=== PATIENT | female | born 1945 | race Caucasian/White ===

== ENCOUNTER 2018-05-05 10:58 | Inpatient (IN) ==
[2018-05-05] MEDS ORDERED: Orphenadrine 100 MG TABLET.ER PO ONE (11:26)
[2018-05-05] MEDS ORDERED: *HR* HYDROmorphone (PF) 1 MG/ML SYRINGE IVP ONE (11:27)
--- NOTE | 2018-05-05 11:42 | Emergency Department Note ---
Disposition Clinical Impression: Left hip pain Disposition: Admitted As Inpatient Condition: Fair Referrals: Sharifa Hutton DO [Partnered Physician] - Forms: ED Satisfaction Letter Time of Disposition: 14:38 General Adult HPI - General Chief complaint: ED Extremity Problem,Nontraumatic Stated complaint: L hip pain Time Seen by Provider: 05/05/18 11:09 Source: patient Mode of arrival: ambulatory Limitations: no limitations Nursing Notes Reviewed: Yes Vital Signs Reviewed: Yes - History of Present Illness HPI Narrative: 72-year-old female history of chronic back pain is followed by pain management presents to the emergency with left hip pain. Patient felt approximate 3 days ago has been seen every day since the fall here in the emergency department. Patient has been given Dilaudid, Toradol, Flexeril in the emergency department she is able to go home and then is unable to control her pain. Patient does have Percocet at home and is followed by pain management with Dr. Alexandra. Patient is benign able to control her pain so she keeps on coming back to the emergency department for the exact same pain. She did have CTs and x-rays done of her left hip as well as her pelvis which is showed no acute fractures or any injuries. They said does show chronic arthritis of the left hip. Patient has had a right hip replacement done in the past. Patient is describing her pain is in the left hip describing it as 10 out of 10 sharp stabbing pain nonradiating. She says that all the medications that she took including the Flexeril was not helping with the pain at all. Otherwise patient has no complaint at this time. There is no new recent falls or new recent trauma to the area. Patient is having no other complaints including headache, blurry vision, neck pain, back pain, fever, chills, nausea, vomiting, chest pain, shortness of breath, abdominal pain, changes in bowel movements, pain with urination, pain or ting ling going down the arms or legs or generalized weakness. Pain Scale: 10 - Related Data Home Medications Medication Instructions Recorded Confirmed Aspirin [Adult Low Dose Aspirin EC] 81 mg PO BID 06/26/15 02/28/16 Carvedilol [Coreg] 25 mg PO BID 06/26/15 02/28/16 Esomeprazole Magnesium [Nexium] 40 mg PO BID 06/26/15 02/28/16 Isosorbide MONOnitrate (24 HR) 30 mg PO DAILY 06/26/15 02/28/16 [Imdur] LORazepam [Ativan] 1 mg PO TID 06/26/15 02/28/16 Rosuvastatin [Crestor] 40 mg PO HS 06/26/15 02/28/16 Buprenorphine [Butrans] 1 each TD Q7D 02/28/16 02/28/16 Calcitriol [Rocaltrol] 0.25 mcg PO BID 02/28/16 02/28/16 Cyanocobalamin (Vitamin B-12) 1,000 mcg PO MOWEFR 02/28/16 02/28/16 [Vitamin B12] Cyclobenzaprine [Flexeril] 10 mg PO TID PRN 02/28/16 02/28/16 Eletriptan HBr [Relpax] 20 mg PO AD PRN 02/28/16 02/28/16 FLUoxetine HCl [Prozac] 20 mg PO BID 02/28/16 02/28/16 Furosemide [Lasix] 20 mg PO BID 02/28/16 02/28/16 HYDROcodone/Acet 10/325 mg [[place] 1 tab PO Q6HR PRN 02/28/16 02/28/16 10-325 mg] Hydralazine HCl 50 mg PO BID 02/28/16 02/28/16 Levothyroxine [Synthroid] 50 mcg PO 0630 02/28/16 02/28/16 Mirtazapine [Remeron] 30 mg PO HS 02/28/16 02/28/16 Ondansetron HCl [Zofran] 4 mg PO Q6H PRN 02/28/16 02/28/16 Pnv No.122/Iron/Folic Acid 1 each PO DAILY 02/28/16 02/28/16 [ Multi Tablet] Potassium Chloride [Klor-Con] 20 meq PO QPM 02/28/16 02/28/16 Potassium Chloride [Klor-Con] 40 meq PO QAM 02/28/16 02/28/16 Pregabalin [Lyrica] 75 mg PO BID 02/28/16 02/28/16 Trazodone HCl 200 mg PO HS 02/28/16 02/28/16 Verapamil ER (24 HR) [Calan SR] 180 mg PO DAILY 02/28/16 02/28/16 Previous Rx's Medication Instructions Recorded Docusate [Colace] 100 mg PO BID #60 capsule 02/28/16 Oxycodone HCl/Acetaminophen 1 each PO Q4HR PRN #25 tablet 02/28/16 [Percocet 5-325 mg Tablet] Phenazopyridine HCl [Pyridium] 200 mg PO TIDAC #12 tab 02/28/16 Orphenadrine [Norflex] 100 mg PO BID #14 tablet.er 11/04/16 Nitrofurantoin (BID) [Macrobid] 100 mg PO BID #10 capsule 11/20/16 Cyclobenzaprine [Flexeril] 10 mg PO TID #15 tablet 05/04/18 Allergies Allergy/AdvReac Type Severity Reaction Status Date / Time Amoxicillin AdvReac Vomiting Verified 05/05/18 11:05 meperidine [From Demerol] AdvReac Vomiting Verified 05/05/18 11:05 Sulfa (Sulfonamide AdvReac Vomiting Verified 05/05/18 11:05 Antibiotics) All systems ED: reviewed and negative except as stated. Review of Systems: As Per HPI Past Medical History - Past Medical History Attestation: Yes The following information was validated with the patient. 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 - Social History Smoking Status: Former smoker Smokeless Tobacco Status: No Alcohol use: Reports: none Drug use: Reports: none Physical Exam - General Limitations: no limitations General appearance: alert - Head Head exam: atraumatic, normocephalic, normal inspection - Eye Eye exam: Present: normal appearance, PERRL, EOMI - ENT ENT exam: normal exam, normal oropharynx, mucous membranes moist - Neck Neck exam: Present: normal inspection, full ROM, trachea midline - Chest Chest inspection: Present: normal inspection, symmetric chest wall rise - Respiratory Respiratory exam: Present: normal lung sounds bilaterally - Cardiovascular Cardiovascular exam: Present: regular rate, normal rhythm, normal heart sounds - Abdominal Exam Abdominal exam: Present: soft, Non-Tender. Absent: tenderness, distention, guarding, rebound, rigidity - Extremities Exam Extremities exam: Present: normal inspection, full ROM. Absent: tenderness, pedal edema - Expanded Lower Extremity Exam Hip/Pelvis exam: Present: normal inspection, tenderness (Tenderness while palpating the left hip.). Absent: swelling, laceration, ecchymosis, deformity, dislocation, erythema, external rotation, internal rotation, shortening Upper leg exam: Present: normal inspection, full ROM Knee exam: Present: normal inspection, full ROM Lower leg exam: Present: normal inspection, full ROM Ankle exam: Present: normal inspection, full ROM Foot/toe exam: Present: normal inspection, full ROM Neurovascular/Tendon exam: Absent: motor deficit, sensory deficit, tendon deficit - Back Exam Back exam: Present: normal inspection, full ROM. Absent: tenderness, CVA tend erness (R), CVA tenderness (L) - Neurological Exam Neurological exam: Present: alert, oriented X3 - Skin Skin exam: Present: warm, dry, intact, normal color Course Course Narrative: The pain specialist called here and recommended patient be admitted if we are unable to control patient's pain. We will get CTs of the thoracic and lumbar region distraught any other injuries. Due to patient coming back here for multiple visits. We will give patient Dilaudid and Zofran as well as Norflex to help with the pain. Patient will most likely be admitted for pain control as well as get a pain management consultation. Vital Signs Temperature 98.1 F 05/05/18 11:04 Pulse Rate 66 05/05/18 11:04 Respiratory Rate 16 05/05/18 11:04 Blood Pressure 161/89 05/05/18 11:04 O2 Sat by Pulse Oximetry 99 05/05/18 11:04 Temperature 98.1 F 05/05/18 11:24 Pulse Rate 63 05/05/18 14:21 Respiratory Rate 16 05/05/18 14:21 Blood Pressure 139/72 05/05/18 14:21 O2 Sat by Pulse Oximetry 99 05/05/18 14:21 Oxygen Delivery Oxygen Delivery Room Air Medical Decision Making - MDM Narrative Medical decision making narrative: Patient's pain was controlled with Dilaudid and Flexeril. CT of the lumbar and thoracic spine had no acute abnormalities. Due to patient needing constant pain control to admit to the hospitalist for further evaluation and pain control. Also recommend pain specialist consultation as well. I spoke with the hospitalist Dr. Walters who agreed to admit the patient to their service. Patient admitted in stable condition. Lumbar Spine CT 05/05/18 11:26 IMPRESSION: 1. No acute abnormality in the thoracic or lumbar spine. 2. Status post L2-L5 spinal fusion. Grade 1 anterolisthesis of L4 on L5. 3. Moderate L5-S1 degenerative disc disease. Mild degenerative disc disease throughout the thoracic spine and lumbar spine. D/ / 05/05/2018 13:04:08 Mee Ferrsi MD / kevin Interpreting Provider: Mee Ferris MD Thoracic Spine CT 05/05/18 11:26 IMPRESSION: 1. No acute abnormality in the thoracic or lumbar spine. 2. Status post L2-L5 spinal fusion. Grade 1 anterolisthesis of L4 on L5. 3. Moderate L5-S1 degenerative disc disease. Mild degenerative disc disease throughout the thoracic spine and lumbar spine. D/ / 05/05/2018 13:04:08 Mee Ferris MD / kevin Interpreting Provider: Mee Ferris MD - Lab Data Result diagrams: 05/05/18 13:16 05/05/18 13:16 Lab Results 05/05/18 05/05/18 Range/Units 13:16 13:16 WBC 4.0 L (4.3-11.1) K/mcL RBC 4.17 (3.82-4.97) M/mcL Hgb 11.9 (11.5-15.4) g/dL Hct 36.8 (35.3-44.9) % MCV 88.2 (83.0-100.0) fL MCH 28.5 (28.0-33.3) pg MCHC 32.3 (31.6-35.5) g/dL RDW 15.7 H (11.5-14.5) % Plt Count 206 (140-400) K/mcL MPV 10.9 (9.4-12.4) fL Immature Gran % 0.2 (0-4) % Seg Neutrophils % 70.2 % Lymphocytes % 16.7 % Monocytes % 10.7 % Eosinophils % 2.0 % Basophils % 0.2 % Neutrophils # 2.8 (1.6-8.9) K/mcL Lymphocytes # 0.7 (0.6-4.6) K/mcL Monocytes # 0.4 (0.0-1.3) K/mcL Eosinophils # 0.1 (0.0-0.6) K/mcL Basophils # 0.0 (0.0-0.2) K/mcL Sodium 140 (136-145) mEq/L Potassium 3.5 (3.5-5.1) mEq/L Chloride 106 (98-107) mEq/L Carbon Dioxide 27 (23-29) mEq/L BUN 25 H (8-23) mg/dL Creatinine 0.82 (0.60-1.20) mg/dL Est GFR ( Amer) > 60 (> 60) Est GFR (Non-Af Amer) > 60 (> 60) BUN/Creatinine Ratio 30 H (6-26) Glucose 103 (70-105) mg/dL Calculated Osmolality 295 (280-300) Calcium 8.7 (8.6-10.3) mg/dL Attestation Statement - Attestation Attestation: Patient was seen with resident physician. I reviewed the history, physical, assessment and plan, and agree with the findings. I also personally evaluated this patient and had [id number] time with this patient. 72-year-old female presents emergency Department for the third time in 4 days with a chief complaint of left lateral hip pain. Patient is a history of fall, and degenerative changes in the left hip. She also has a history of back injury with surgical correction. She is currently followed by pain management who advised her to come in today for pain control and possible admission. Patient states that she was seen yesterday and did not get until about 4 AM when the pain medicines wore off and then the pain came back. She says she is unable to ambulate because it hurt so bad. She denies new injuries. She has is a fairly extensive workup including CT scans and x-rays over the last week. She denies fevers or chills no chest pain or shortness of breath. Review of systems as above remainder negative. Physical exam vital signs are stable. ENT is unremarkable. Heart regular rhythm and rate. Lungs clear. Abdomen soft there is no tenderness no guarding no rigidity. Extremities tenderness with palpation of the left lateral hip along the greater trochanter. This reproduces the patient's symptoms. The back is nontender. Neurologically intact. Skin no rashes. Psych anxious. ED course patient has not had a thoracic and lumbar CT scan for approximately 6 months. I am with this fall I wanted make sure she did not have a new injury there that could be compressing a nerve resulting in pain to her hip. I we did contact the pain specialists who is on-call. They felt that with her frequent trips to the emergency department this point is probably better to admit her for pain control PT and OT. This is what we will likely do once her workup is complete. Hemodynamically she is stable in the emergency department. I agree with resident physician assessment and plan.
[2018-05-05] MEDS ORDERED: Ondansetron 4 MG/2 ML VIAL IVP ONE (11:43)
[2018-05-05 13:39] LABS: Basophils % 0.2 %; Eosinophils # 0.1 K/mcL (0.0-0.6); Hematocrit 36.8 % (35.3-44.9); Hemoglobin 11.9 g/dL (11.5-15.4); Immature Granulocytes % 0.2 % (0-4); Lymphocytes # 0.7 K/mcL (0.6-4.6); Lymphocytes % 16.7 %; Mean Corpuscular HGB Conc 32.3 g/dL (31.6-35.5); Mean Corpuscular Hemoglobin 28.5 pg (28.0-33.3); Mean Corpuscular Volume 88.2 fL (83.0-100.0); Mean Platelet Volume 10.9 fL (9.4-12.4); Monocytes # 0.4 K/mcL (0.0-1.3); Monocytes % 10.7 %; Neutrophils # 2.8 K/mcL (1.6-8.9); Platelet Count 206 K/mcL (140-400); Red Blood Count 4.17 M/mcL (3.82-4.97); Red Cell Distribution Width 15.7 % (11.5-14.5); Segmented Neutrophils % 70.2 %
[2018-05-05 13:57] LABS: BUN/Creatinine Ratio 30 (6-26); Blood Urea Nitrogen 25 mg/dL (8-23); Calcium 8.7 mg/dL (8.6-10.3); Carbon Dioxide 27 mEq/L (23-29); Chloride 106 mEq/L (98-107); Glucose 103 mg/dL (70-105); Osmolality,Calculated 295 (280-300); Potassium 3.5 mEq/L (3.5-5.1); Sodium 140 mEq/L (136-145); eGFR For Non-African Americans > 60 (> 60)
[2018-05-05] MEDS ORDERED: ELETRIPTAN HBR 20 MG PO PRN (16:57)
--- NOTE | 2018-05-05 17:12 | Internal Med History&Physical ---
Date of Encounter: 05/05/18 Time of Encounter: 16:12 Internal Medicine - H&P: HPI History of present illness: 72-year-old female history of chronic back pain arthritis, CAD, h/o DVT, renal disease presents to the emergency with left hip pain. Patient felt approximate 3 days ago has been seen every day since the fall here in the emergency department. Patient presented for third straight day for same pain, which is uncontrolled. CT and x-ray of left hip, pelvis, lumbar spine have been negative for acute fracture or acute injury. Pain described as 10 out of 10 on admission, and after getting pain medication in the ED, rated as 4/10. She denied LOC or hitting head. She denies fevers/chills, n/v, SOB, CP, changes in bowel/bladder, numbness/tingling of extremities. Past Med Surg Social Fam HX - Past Medical History Medical history: arthritis, coronary artery disease, DVT, hyperlipidemia, hypertension, migraine, renal disease, thyroid disease Psychiatric history: anxiety, bipolar, depression - Past Surgical History Surgical History: cholecystectomy, hysterectomy, other Additional surgical history: mid back sx, knee surgery, foot and shoulder surgery gastric bypass, R hip replacement - Social History Smoking Status: Former smoker Smokeless Tobacco Status: No Alcohol use: none Drug use: none - Family History Mother Hx Family Cardiac Disorders: Yes Internal Medicine - H&P: Meds Carvedilol [Coreg] 12.5 mg PO BID 06/26/15 [History] Isosorbide MONOnitrate (24 HR) [Imdur] 30 mg PO DAILY 06/26/15 [History] LORazepam [Ativan] 1 mg PO TID 06/26/15 [History] Rosuvastatin [Crestor] 40 mg PO HS 06/26/15 [History] Calcitriol [Rocaltrol] 0.25 mcg PO BID 02/28/16 [History] Cyanocobalamin (Vitamin B-12) [Vitamin B12] 1,000 mcg PO DAILY 02/28/16 [History] Cyclobenzaprine [Flexeril] 10 mg PO TID PRN 02/28/16 [History] Eletriptan HBr [Relpax] 20 mg PO AD PRN 02/28/16 [History] FLUoxetine HCl [Prozac] 20 mg PO BID 02/28/16 [History] Furosemide [Lasix] 40 mg PO QAM 02/28/16 [History] Hydralazine HCl 50 mg PO HS 02/28/16 [History] Levothyroxine [Synthroid] 50 mcg PO QAM 02/28/16 [History] Potassium Chloride [Klor-Con] 20 meq PO QPM 02/28/16 [History] Verapamil ER (24 HR) [Calan SR] 180 mg PO DAILY 02/28/16 [History] Aspirin [Lo-Dose Aspirin EC] 81 mg PO DAILY 05/05/18 [History] Furosemide [Lasix] 20 mg PO QPM 05/05/18 [History] Oxycodone HCl/Acetaminophen [Percocet 5-325 mg Tablet] 1 each PO Q4H PRN 05/05/18 [History] Pantoprazole Sodium [Protonix] 40 mg PO DAILY 05/05/18 [History] Pregabalin [Lyrica] 100 mg PO TID 05/05/18 [History] Allergy/AdvReac Type Severity Reaction Status Date / Time Amoxicillin AdvReac Vomiting Verified 05/05/18 11:05 meperidine [From Demerol] AdvReac Vomiting Verified 05/05/18 11:05 Sulfa (Sulfonamide AdvReac Vomiting Verified 05/05/18 11:05 Antibiotics) All Systems PM: A 10-system review of systems was performed and is negative for pertinent findings except as documented above in the HPI. - Constitutional Vitals: Temp Pulse Resp BP Pulse Ox 98.6 F 65 16 146/81 96 05/05/18 15:48 05/05/18 15:48 05/05/18 15:48 05/05/18 15:48 05/05/18 16:03 Exam: Gen: No acute distress, AAO x3 HEENT: NC/AT, PERRLA, EOMI, MMM, Neck full ROM. Chest: CTAB CVS: RRR Ext: right arm contusion near bicep. Positive for tenderness with palpating left hip on the lateral part and medial part as well. No edema, no erythema, no gross deformities. Limited left hip flexion and rotation due to pain. Strength of hips are normal. ROM and sensation preserved. Lower legs with normal sensation, normal strength, no edema, no cyanosis. Internal Med - H&P Results - Labs CBC & Chem 7: 05/05/18 13:16 05/05/18 13:16 Labs: Short CBC 05/05/18 Range/Units 13:16 WBC 4.0 L (4.3-11.1) K/mcL Hgb 11.9 (11.5-15.4) g/dL Hct 36.8 (35.3-44.9) % Plt Count 206 (140-400) K/mcL Neutrophils # 2.8 (1.6-8.9) K/mcL BMP 05/05/18 13:16 Sodium 140 Potassium 3.5 Chloride 106 Carbon Dioxide 27 BUN 25 H Creatinine 0.82 Glucose 103 Calcium 8.7 - Impressions ITS Impressions Lumbar Spine CT 05/05/18 11:26 IMPRESSION: 1. No acute abnormality in the thoracic or lumbar spine. 2. Status post L2-L5 spinal fusion. Grade 1 anterolisthesis of L4 on L5. 3. Moderate L5-S1 degenerative disc disease. Mild degenerative disc disease throughout the thoracic spine and lumbar spine. D/ / 05/05/2018 13:04:08 Mee Ferris MD / kevin Interpreting Provider: Mee Ferris MD Thoracic Spine CT 05/05/18 11:26 IMPRESSION: 1. No acute abnormality in the thoracic or lumbar spine. 2. Status post L2-L5 spinal fusion. Grade 1 anterolisthesis of L4 on L5. 3. Moderate L5-S1 degenerative disc disease. Mild degenerative disc disease throughout the thoracic spine and lumbar spine. D/ / 05/05/2018 13:04:08 Mee Ferris MD / kevin Interpreting Provider: Mee Ferris MD - Assessment and plan (1) Left hip pain Current Visit: Yes Status: Acute Assessment and plan: Occurred after a fall 3 days ago with gradually worsening of pain. Patient takes Percocet at home with no relief. CT of hip was negative for any acute process, including fractures. Consult Ortho in the AM. Consult Pain Management in the AM. PT/OT (2) Coronary artery disease Current Visit: Yes Status: Acute Qualifiers: Coronary Disease-Associated Artery/Lesion type: [place] artery [place] vs. transplanted heart: [place] heart Associated angina: without angina Qualified Code(s): I25.10 - Atherosclerotic heart disease of [place] coronary artery without angina pectoris (3) History of DVT (deep vein thrombosis) Current Visit: Yes Status: Acute Assessment and plan: Per EMR. No anticoagulations listed on home medications. Start SQ heparin for DVT prophylaxis. (4) Hyperlipidemia Current Visit: Yes Status: Acute Assessment and plan: Resume crestor Qualifiers: Hyperlipidemia type: unspecified Qualified Code(s): E78.5 - Hyperlipidemia, unspecified (5) Hypertension Current Visit: Yes Status: Acute Assessment and plan: Coreg, Hydralazine PO, Imdur, Verapamil ER Qualifiers: Hypertension type: essential hypertension Qualified Code(s): I10 - Essential (primary) hypertension (6) Osteoarthritis Current Visit: No Status: Chronic Qualifiers: Osteoarthritis location: hip Osteoarthritis type: primary Laterality: ri ght Qualified Code(s): M16.11 - Unilateral primary osteoarthritis, right hip - Time Spent With Patient Total time spent is greater than 50% in coordination of care (as documented) at patient's floor/unit and/or counseling patient:
[2018-05-05] MEDS ORDERED: OXYCODONE Oral CONC 10 MG/0.5 ML ORAL.SYG SL PRN (17:16)
[2018-05-05] MEDS ORDERED: Naloxone 0.4 MG/ML INJ IVP PRN ×2 (17:16)
[2018-05-05] MEDS ORDERED: MOM Conc 10 ML UD.LIQ PO PRN (17:16)
[2018-05-05] MEDS ORDERED: Acetaminophen 325 MG TABLET PO PRN (17:27)
[2018-05-05] MEDS ORDERED: Ketorolac 15 MG/ML VIAL IVP PRN (17:28)
[2018-05-05] MEDS: *HR* Heparin 5,000 UNIT/ML VIAL SQ SCH (17:49)
[2018-05-05] MEDS: Furosemide 20 MG TABLET PO SCH (17:49)
[2018-05-05] MEDS: OXYCODONE Oral CONC 10 MG/0.5 ML ORAL.SYG SL PRN ×2 (17:49→23:37)
[2018-05-05] MEDS: FLUoxetine 20 MG CAPSULE PO SCH (19:59)
[2018-05-05] MEDS: Pregabalin 50 MG CAPSULE PO SCH (19:59)
[2018-05-05] MEDS: *HR* LORazepam 1 MG TABLET PO SCH (19:59)
[2018-05-05] MEDS ORDERED: hydrALAZINE 25 MG TABLET PO SCH (21:00)
[2018-05-06] MEDS: *HR* Heparin 5,000 UNIT/ML VIAL SQ SCH ×2 (05:30→17:29)
[2018-05-06] MEDS: Isosorbide MONOnitrate (24 HR) 30 MG TAB.ER.24H PO SCH (08:11)
[2018-05-06] MEDS: Verapamil ER (24 HR) 180 MG TABLET.ER PO SCH (08:11)
[2018-05-06] MEDS: *HR* LORazepam 1 MG TABLET PO SCH ×3 (08:12→21:13)
[2018-05-06] MEDS: Cyanocobalamin (B-12) 1,000 MCG TABLET PO SCH (08:12)
[2018-05-06] MEDS: FLUoxetine 20 MG CAPSULE PO SCH ×2 (08:12→21:13)
[2018-05-06] MEDS: Pregabalin 50 MG CAPSULE PO SCH ×3 (08:13→21:13)
[2018-05-06] MEDS: Aspirin Enteric Coated 81 MG Tablet PO SCH (08:13)
[2018-05-06] MEDS: Furosemide 20 MG TABLET PO SCH ×2 (08:13→17:28)
--- NOTE | 2018-05-06 13:34 | Internal Med Progress Note ---
Hospitalist Progress Note - Encounter Date of Encounter: 05/06/18 Time of Encounter: 09:30 - Subjective Interval History: 72-year-old female history of chronic back pain arthritis, CAD, h/o DVT, renal disease presents to the emergency with left hip pain. Patient felt approximate 3 days ago since then she has severe left hip pain and has been seen in our ER every day . Patient presented for third straight day for same pain, which is uncontrolled. CT and x-ray of left hip, pelvis, lumbar spine have been negative for acute fracture or acute injury. Patient was admitted in the hospital. She still c/o severe Left hip pain, as well as low back pain radiating to her left thigh. Denied any CP / SOB. - Exam Vitals: Temp Pulse Resp BP Pulse Ox 98.5 F 69 16 99/61 93 05/06/18 10:57 05/06/18 10:57 05/06/18 10:57 05/06/18 10:57 05/06/18 10:57 Exam: Gen: Alert, awake, Oriented to time,place and person Chest: Diminished breath sounds B/L, No wheezing, No crackles, No rales Heart: S1S2+ RRR No murmurs Abd: Soft, NT, BS +, No organomegaly Neuro : Benign findings Skin: No rash. Ext: moderate to severe tenderness with palpating over lateral side of left hip. No bruise / No swelling / No erythema noticed. Limited left hip flexion and rotation due to pain. Strength of hips are normal. ROM and sensation preserved. Lower legs with normal sensation, normal strength, no edema, no cyanosis. - Assessment and Plan (1) Left hip pain Current Visit: Yes Status: Acute Assessment and Plan: Occurred after a fall 3 days ago with gradually worsening of pain CT of hip was negative for any acute process, including fractures Pt is unable to bare any weight high risk for falls still requiring more frequent high dose pain medication cont Flexaril need close monitoring Ortho consulted for further eval PT / OT eval May need short term PT / OT Patient does need to stay in the hospital more than 2 midnights due to her complex medical problems. So we will change her to full admission today. I did review my colleague Dr. Martin H & P including HPI, PMH, PSH, FH, SH, and ROS no changes noticed (2) Sciatic leg pain Current Visit: Yes Status: Acute Assessment and Plan: She does have s/p L2-L5 spinal fusion her low back pain also concerning for sciatic pain reviewed her CT of the lumbar spine which showed moderate L5-S1 DJD need to follow up with Dr. Cruz from [place] as an out pt (3) Osteoarthritis Current Visit: No Status: Chronic Assessment and Plan: noticed severe DJD continue symptomatic and supportive care (4) Coronary artery disease Current Visit: Yes Status: Acute Assessment and Plan: No active chest pain now Resumed home medications (5) History of DVT (deep vein thrombosis) Current Visit: Yes Status: Acute Assessment and Plan: on SQ heparin for DVT prophylaxis. (6) Hypertension Current Visit: Yes Status: Acute Assessment and Plan: Stable with current home medications Coreg, Hydralazine PO, Imdur, Verapamil ER (7) Hyperlipidemia Current Visit: Yes Status: Acute Assessment and Plan: Resume crestor - Time Spent with Patient Total time spent is greater than 50% in coordination of care (as documented) at patient's floor/unit and/or counseling patient: Internal Medicine: Result - Labs CBC & Chem 7: 05/05/18 13:16 05/05/18 13:16 Labs: Short CBC 05/05/18 Range/Units 13:16 WBC 4.0 L (4.3-11.1) K/mcL Hgb 11.9 (11.5-15.4) g/dL Hct 36.8 (35.3-44.9) % Plt Count 206 (140-400) K/mcL Neutrophils # 2.8 (1.6-8.9) K/mcL BMP 05/05/18 13:16 Sodium 140 Potassium 3.5 Chloride 106 Carbon Dioxide 27 BUN 25 H Creatinine 0.82 Glucose 103 Calcium 8.7 - Impressions Impressions Lumbar Spine CT 05/05/18 11:26 IMPRESSION: 1. No acute abnormality in the thoracic or lumbar spine. 2. Status post L2-L5 spinal fusion. Grade 1 anterolisthesis of L4 on L5. 3. Moderate L5-S1 degenerative disc disease. Mild degenerative disc disease throughout the thoracic spine and lumbar spine. D/ / 05/05/2018 13:04:08 Mee Ferris MD / kevin Interpreting Provider: Mee Ferris MD Thoracic Spine CT 05/05/18 11:26 IMPRESSION: 1. No acute abnormality in the thoracic or lumbar spine. 2. Status post L2-L5 spinal fusion. Grade 1 anterolisthesis of L4 on L5. 3. Moderate L5-S1 degenerative disc disease. Mild degenerative disc disease throughout the thoracic spine and lumbar spine. D/ / 05/05/2018 13:04:08 Mee Ferris MD / kevin [place] Provider: Mee Ferris MD Consult Discharge Plan - Plan Referrals: Sharifa Hutton DO [Primary Care Provider] - (3) Osteoarthritis Qualifiers: Osteoarthritis location: hip Osteoarthritis type: primary Laterality: right Qualified Code(s): M16.11 - Unilateral primary osteoarthritis, right hip (4) Coronary artery disease Qualifiers: Coronary Disease-Associated Artery/Lesion type: [place] artery [place] vs. transplanted heart: [place] heart Associated angina: without angina Qualified Code(s): I25.10 - Atherosclerotic heart disease of [place] coronary artery without angina pectoris (6) Hypertension Qualifiers: Hypertension type: essential hypertension Qualified Code(s): I10 - Essential (primary) hypertension (7) Hyperlipidemia Qualifiers: Hyperlipidemia type: unspecified Qualified Code(s): E78.5 - Hyperlipidemia, unspecified
[2018-05-06] MEDS: OXYCODONE Oral CONC 10 MG/0.5 ML ORAL.SYG SL PRN (14:17)
--- NOTE | 2018-05-06 19:09 | Orthopedic Consult Note ---
Date of Encounter: 05/06/18 Time of Encounter: 19:05 History of Present Illness Chief complaint: Left hip pain HPI: Ms. Subramanian is a 72 year old female with a history of chronic arthritis of the left hip as well as numerous other sites. The patient sustained a fall several days ago. She fell forward and injured her left hip amongst other things. She has been back and forth to the emergency room multiple times. X-rays did not reveal any evidence of a fracture. Further workup did not reveal any other acute fractures or injuries. The patient however has been unable to ambulate without pain. The patient has a significant history of having previously undergone a right total hip arthroplasty, bilateral total knee arthroplasties as well as an instrumented spine fusion. Patient has had chronic low back pain and buttock pain. She had been seen and treated by Dr. Alexandra of pain management with some relief obtained with epidural steroid injections, however, the patient has been unable to tolerate positioning for these injections. I reviewed the patient's completed history and physical exam as well as reviewed numerous imaging studies and the cord record. Pertinent orthopedic examination reveals a 72-year-old woman who is able to ambulate with use of an assistive device. She has well-healed incisions over both knees and over the right hip. Left hip examination is somewhat limited in motion. No evidence of severe pain with examination. I reviewed multiple imaging studies. X-ray of the left hip reveals advanced arthritic hip no evidence of acute fractures or dislocation. There is a stable, press-fit right total hip arthroplasty without obvious complicating features. X-rays of her left knee reveal a cemented 3 component total knee arthroplasty without complicating features. CT scan of the pelvis reveals the previously noted arthritic changes about the left hip but no evidence of acute fracture dislocation etc. A CT scan of the lumbar spine reveals the previously noted instrumented spine fusion from L2-L5. No complicating features noted in this vicinity. There is however, severe degenerative disc disease at the L5-S1 level. Impression: 1. Left hip contusion superimposed upon osteoarthritis left hip 2. Severe degenerative disc disease L5-S1 Recommendation: At this time there is no indication for acute intervention in regards to her left hip. Ultimately the patient will definitively be best served with a left total hip arthroplasty. In the meantime would have the patient continue to ambulate as tolerated. Can be discharged safely to home in the near future. Will follow-up as an outpatient after discharge to continue her care. Thank you very much for allowing me to seen care for Mrs. subramanian. Sincerely, Perez Arevalo,DO Past Med Surg Social Fam HX - Past Medical History Medical history: arthritis, coronary artery disease, DVT, hyperlipidemia, h ypertension, migraine, renal disease, thyroid disease Psychiatric history: anxiety, bipolar, depression - Past Surgical History Surgical History: cholecystectomy, hysterectomy, other Additional surgical history: mid back sx, knee surgery, foot and shoulder surgery gastric bypass, R hip replacement - Social History Smoking Status: Former smoker Smokeless Tobacco Status: No Alcohol use: none Drug use: none - Family History Mother Hx Family Cardiac Disorders: Yes Medications and Allergies Carvedilol [Coreg] 12.5 mg PO BID 06/26/15 [History] Isosorbide MONOnitrate (24 HR) [Imdur] 30 mg PO DAILY 06/26/15 [History] LORazepam [Ativan] 1 mg PO TID 06/26/15 [History] Rosuvastatin [Crestor] 40 mg PO HS 06/26/15 [History] Calcitriol [Rocaltrol] 0.25 mcg PO BID 02/28/16 [History] Cyanocobalamin (Vitamin B-12) [Vitamin B12] 1,000 mcg PO DAILY 02/28/16 [History] Cyclobenzaprine [Flexeril] 10 mg PO TID PRN 02/28/16 [History] Eletriptan HBr [Relpax] 20 mg PO AD PRN 02/28/16 [History] FLUoxetine HCl [Prozac] 20 mg PO BID 02/28/16 [History] Furosemide [Lasix] 40 mg PO QAM 02/28/16 [History] Hydralazine HCl 50 mg PO HS 02/28/16 [History] Levothyroxine [Synthroid] 50 mcg PO QAM 02/28/16 [History] Potassium Chloride [Klor-Con] 20 meq PO QPM 02/28/16 [History] Verapamil ER (24 HR) [Calan SR] 180 mg PO DAILY 02/28/16 [History] Aspirin [Lo-Dose Aspirin EC] 81 mg PO DAILY 05/05/18 [History] Furosemide [Lasix] 20 mg PO QPM 05/05/18 [History] Oxycodone HCl/Acetaminophen [Percocet 5-325 mg Tablet] 1 each PO Q4H PRN 05/05/18 [History] Pantoprazole Sodium [Protonix] 40 mg PO DAILY 05/05/18 [History] Pregabalin [Lyrica] 100 mg PO TID 05/05/18 [History] Allergy/AdvReac Type Severity Reaction Status Date / Time Amoxicillin AdvReac Vomiting Verified 05/05/18 11:05 meperidine [From Demerol] AdvReac Vomiting Verified 05/05/18 11:05 Sulfa (Sulfonamide AdvReac Vomiting Verified 05/05/18 11:05 Antibiotics) All Systems Reviewed: The remainder of the systems were reviewed and are negative Physical Exam - Constitutional Vitals: Temp Pulse Resp BP Pulse Ox 98.9 F 70 16 100/62 95 05/06/18 15:02 05/06/18 15:02 05/06/18 15:02 05/06/18 15:02 05/06/18 15:02 Results - Labs Result Diagrams: 05/05/18 13:16 05/05/18 13:16 Labs: Abnormal lab results WBC 4.0 K/mcL (4.3-11.1) L 05/05/18 13:16 RDW 15.7 % (11.5-14.5) H 05/05/18 13:16 BUN 25 mg/dL (8-23) H 05/05/18 13:16 BUN/Creatinine Ratio 30 (6-26) H 05/05/18 13:16 All other labs normal. - Diagnostic results Hip x-ray: image reviewed Hip CT: image reviewed Knee x-ray: image reviewed CT Scan - lumbar: image reviewed Consult Discharge Plan - Plan Referrals: Sharifa Hutton DO [Primary Care Provider] -
[2018-05-07] MEDS: OXYCODONE Oral CONC 10 MG/0.5 ML ORAL.SYG SL PRN ×2 (05:24→15:39)
--- NOTE | 2018-05-07 07:30 | Internal Med Progress Note ---
<Porter Brown P - Last Filed: 05/07/18 08:18> Hospitalist Progress Note - Encounter Date of Encounter: 05/07/18 Time of Encounter: 08:00 - Subjective Interval History: This 72 years old female admitted from ED for left hip pain and low back pain. She had history of fall on left side of hip 3 days back and having aggravated low back pain and left hip pain. She is chronic patient of low back pain, CAD, history of DVT, renal impairment, left hip osteoarthritis. Today is second day of admission. Her CT scan of left hip, lumbar spine and pelvis did not show any acute fracture or acute pathology except for degenerative changes in lumbar spine and left hip. Orthopedic consultation has been done: The recommendation is no acute intervention in regard to left hip pain and back pain. She could be candidate for left hip arthroplasty later on outpatient basis. Today during my bedside visit, she was lying comfortably on the bed, no any new complaints, the hip pain was 4-5/10 with pain medication, she told me she had t rouble walk around because of hip pain. Her today's vitals are: Temperature 98.3, pulse 72, blood pressure 134/79 - Exam Vitals: Temp Pulse Resp BP Pulse Ox 98.5 F 69 16 135/76 94 05/07/18 03:41 05/07/18 03:41 05/07/18 03:41 05/07/18 03:41 05/07/18 03:41 Exam: Gen: Alert, awake, Oriented to time,place and person Chest: Diminished breath sounds B/L, No wheezing, No crackles, No rales Heart: S1S2+ RRR No murmurs Abd: Soft, NT, BS +, No organomegaly Neuro : Benign findings Skin: No rash. Ext: moderate to severe tenderness with palpating over lateral side of left hip. No bruise / No swelling / No erythema noticed. Limited left hip flexion and rotation due to pain. Strength of hips are normal. ROM and sensation preserved. Lower legs with normal sensation, normal strength, no edema, no cy anosis. - Assessment and Plan (1) Left hip pain Current Visit: Yes Status: Acute Assessment and Plan: The patient had left hip pain after fall on left hip 3 days back and it is gradually getting worse. Today the level of pain is 4-5/10 with pain medication. We consulted orthopedic doctor, appreciate recommendation: No acute intervention needed for left hip, but could be a good candidate for total hip replacement on outpatient basis. CT of hip was negative for any acute process, including fractures She is on high-dose of pain medication and muscle relaxant. She has problem with ambulation , so we consulted PT and OT. We will monitor her hip pain. (2) Osteoarthritis Current Visit: No Status: Chronic Assessment and Plan: She is chronic patient patient of low back pain with degenerative disc disease. Ortho consultation has been done , we appreciate recommendation. CT thoracic and lumbar spine: No acute abnormality in the thoracic or lumbar spine., Status post L2-L5 spinal fusion. Grade 1 anterolisthesis of L4 on L5.,Moderate L5-S1 degenerative disc disease. Mild degenerative disc disease ,throughout the thoracic spine and lumbar spine. continue symptomatic and supportive care (3) Coronary artery disease Current Visit: Yes Status: Acute Assessment and Plan: She is a patient of coronary artery disease in the past. She does not have any chest pain, shortness of breath during this admission. We have resumed her home medication during her hospital stay. Her blood pressure is 134/79, pulse 72, saturation 97% (4) History of DVT (deep vein thrombosis) Current Visit: Yes Status: Acute (5) Hyperlipidemia Current Visit: Yes Status: Acute (6) Hypertension Current Visit: Yes Status: Acute (7) Sciatic leg pain Current Visit: Yes Status: Acute - Time Spent with Patient Total time spent is greater than 50% in coordination of care (as documented) at patient's floor/unit and/or counseling patient: Internal Medicine: Result - Labs CBC & Chem 7: 05/05/18 13:16 05/05/18 13:16 Consult Discharge Plan - Plan Referrals: Sharifa Hutton DO [Primary Care Provider] - <Ricardo Blanton - Last Filed: 05/07/18 15:12> Hospitalist Progress Note - Encounter Date of Encounter: 05/07/18 - Exam Vitals: Temp Pulse Resp BP Pulse Ox 98.5 F 79 18 98/63 95 05/07/18 12:12 05/07/18 12:12 05/07/18 12:12 05/07/18 12:12 05/07/18 12:12 - Assessment and Plan (1) Osteoarthritis Current Visit: No Status: Chronic (2) Left hip pain Current Visit: Yes Status: Acute (3) Coronary artery disease Current Visit: Yes Status: Acute (4) History of DVT (deep vein thrombosis) Current Visit: Yes Status: Acute (5) Hyperlipidemia Current Visit: Yes Status: Acute (6) Hypertension Current Visit: Yes Status: Acute (7) Sciatic leg pain Current Visit: Yes Status: Acute - Time Spent with Patient Total time spent is greater than 50% in coordination of care (as documented) at patient's floor/unit and/or counseling patient: Internal Medicine: Result - Labs CBC & Chem 7: 05/05/18 13:16 05/05/18 13:16 - Attending Attestation I examined this patient and my medical decision-making was reviewed with the Resident Physician Dr. Brown. I agree with the documented findings, disposition and treatment plan as described except to the extent set forth below. Ms. Garcia 72-year-old female history of chronic back pain arthritis, CAD, h/o DVT, renal disease presents to the emergency with left hip pain. Patient felt approximate 3 days ago since then she has severe left hip pain and has been seen in our ER every day . Patient presented for third straight day for same pain, which is uncontrolled. CT and x-ray of left hip, pelvis, lumbar spine have been negative for acute fracture or acute injury. Patient was admitted in the hospital. She still c/o severe Left hip pain, however little better today with current pain medications. Denied any CP / SOB. Gen: Alert, awake, Oriented to time,place and person Chest: Diminished breath sounds B/L, No wheezing, No crackles, No rales Heart: S1S2+ RRR No murmurs Abd: Soft, NT, BS +, No organomegaly Neuro : Benign findings Skin: No rash. Ext: moderate to severe tenderness left hip. No bruise / No swelling / No erythema noticed. Limited left hip flexion and rotation due to pain. a/p 1. Severe left Hip pain due to severe DJD May need Hip replacement Pt requested to consult Dr. Bowers So talked to Dr. Bowers who is going to evaluate the pt now mean while cont symptomatic and supportive care <Porter Brown P - Last Filed: 05/07/18 08:18> (2) Osteoarthritis Qualifiers: Osteoarthritis location: hip Osteoarthritis type: primary Laterality: right Qualified Code(s): M16.11 - Unilateral primary osteoarthritis, right hip (3) Coronary artery disease Qualifiers: Coronary Disease-Associated Artery/Lesion type: [place] artery [place] vs. transplanted heart: [place] heart Associated angina: without angina Qualified Code(s): I25.10 - Atherosclerotic heart disease of [place] coronary artery without angina pectoris (5) Hyperlipidemia Qualifiers: Hyperlipidemia type: unspecified Qualified Code(s): E78.5 - Hyperlipidemia, unspecified (6) Hypertension Qualifiers: Hypertension type: essential hypertension Qualified Code(s): I10 - Essential (primary) hypertension <[place] de andabu - Last Filed: 05/07/18 15:12> (1) Osteoarthritis Qualifiers: Osteoarthritis location: hip Osteoarthritis type: primary Laterality: right Qualified Code(s): M16.11 - Unilateral primary osteoarthritis, right hip (3) Coronary artery disease Qualifiers: Coronary Disease-Associated Artery/Lesion type: [place] artery [place] vs. transplanted heart: [place] heart Associated angina: without angina Qualified Code(s): I25.10 - Atherosclerotic heart disease of [place] coronary artery without angina pectoris (5) Hyperlipidemia Qualifiers: Hyperlipidemia type: unspecified Qualified Code(s): E78.5 - Hyperlipidemia, unspecified (6) Hypertension Qualifiers: Hypertension type: essential hypertension Qualified Code(s): I10 - Essential (primary) hypertension
[2018-05-07] MEDS: *HR* Heparin 5,000 UNIT/ML VIAL SQ SCH ×2 (07:48→18:48)
[2018-05-07] MEDS: Verapamil ER (24 HR) 180 MG TABLET.ER PO SCH (08:18)
[2018-05-07] MEDS: Cyanocobalamin (B-12) 1,000 MCG TABLET PO SCH (08:18)
[2018-05-07] MEDS: Isosorbide MONOnitrate (24 HR) 30 MG TAB.ER.24H PO SCH (08:18)
[2018-05-07] MEDS: Furosemide 20 MG TABLET PO SCH ×2 (08:18→18:47)
[2018-05-07] MEDS: FLUoxetine 20 MG CAPSULE PO SCH ×2 (08:18→20:54)
[2018-05-07] MEDS: Aspirin Enteric Coated 81 MG Tablet PO SCH (08:20)
[2018-05-07] MEDS: *HR* LORazepam 1 MG TABLET PO SCH ×3 (08:20→20:54)
[2018-05-07] MEDS: Pregabalin 50 MG CAPSULE PO SCH ×3 (08:20→20:54)
--- NOTE | 2018-05-07 16:03 | Orthopedic Consult Note ---
Date of Encounter: 05/08/18 Time of Encounter: 16:02 Assessment and Plan (1) Osteoarthritis of left hip Current Visit: Yes Status: Acute Short note: Orthopedics was re-consulted as a 2nd opinion at patient's request. was called. Discussed risks versus benefits of pursuing a THR to her left side. She remains a high fall risk secondary to her left hip pain and lumbar DJD. We discussed conservative and surgical management. She has chronic pain due to her lumbar DJD and stenosis and follows with interventional pain. She recently underwent a Right THR 11/22/17 at [facility], suffered a fall when she was discharged home and subsequently had a proximal femur fracture. Patient was NWB for 6-8 weeks to allow fracture to heal, and has since had a successful recovery. She also has had bilateral TKR both at [facility]. We discussed optimization and PT/OT eval. She will require cardiac pre-operative assessment for optimization. Patient has been placed on schedule for a Left THR, consent obtained and reviewed. Patient signed. Recommend patient transfer to [facility]. Qualifiers: Osteoarthritis type: primary Qualified Code(s): M16.12 - Unilateral primary osteoarthritis, left hip (2) Chronic pain Current Visit: No Status: Chronic Qualifiers: Chronic pain type: other chronic pain Qualified Code(s): G89.29 - Other chronic pain (3) Lumbar stenosis Current Visit: Yes Status: Chronic Qualifiers: Neurogenic claudication status: without neurogenic claudication Qualified Code(s): M48.061 - Spinal stenosis, lumbar region without neurogenic claudication (4) Coronary artery disease Current Visit: No Status: Chronic Qualifiers: Coronary Disease-Associated Artery/Lesion type: [place] artery [place] vs. transplanted heart: [place] heart Associated angina: without angina Qualified Code(s): I25.10 - Atherosclerotic heart disease of [place] coronary artery without angina pectoris (5) History of DVT (deep vein thrombosis) Current Visit: No Status: Chronic (6) Hyperlipidemia Current Visit: No Status: Chronic Qualifiers: Hyperlipidemia type: unspecified Qualified Code(s): E78.5 - Hyperlipidemia, unspecified (7) Hypertension Current Visit: No Status: Chronic Qualifiers: Hypertension type: essential hypertension Qualified Code(s): I10 - Essential (primary) hypertension (8) Sciatic leg pain Current Visit: No Status: Chronic History of Present Illness Chief complaint: Left Hip Pain - chronic HPI: Ms. Garcia is a 72 year old female - history of chronic back pain arthritis, CAD, h/o DVT, renal disease, Right THR 10/2017, bilateral TKR. Patient felt approximate 5 days ago, and continued to go to the ED for evaluation. Patient was ultimately admitted for continued, uncontrolled pain. CT and x-ray of left hip, pelvis, lumbar spine have been negative for acute fracture or acute injury. Pain described as 10 out of 10 on admission. She denied LOC or hitting head. She denies fevers/chills, n/v, SOB, CP, changes in bowel/bladder, numbness/tingling of extremities. She was seen by on-call orthopedist, who recommended follow up outpatient for discussion; however she asked for a 2nd opinion. I have fully reviewed her history and images. ExAM: LLE: No obvious deformity, no swelling, no erythema or abrasion Point tenderness to GT region, and groin. No warmth. ROM limited with IR/ER secondary to pain. Strength intact but limited. NV intact distally. AMbulating minimally secondary to hip pain. Past Med Surg Social Fam HX - Past Medical History Medical history: arthritis, coronary artery disease, DVT, hyperlipidemia, hypertension, migraine, renal disease, thyroid disease Psychiatric history: anxiety, bipolar, depression - Past Surgical History Surgical History: cholecystectomy, hysterectomy, other Additional surgical history: mid back sx, knee surgery, foot and shoulder surgery gastric bypass, R hip replacement - Social History Smoking Status: Former smoker Smokeless Tobacco Status: No Alcohol use: none Drug use: none - Family History Mother Hx Family Cardiac Disorders: Yes Medications and Allergies Carvedilol [Coreg] 12.5 mg PO BID 06/26/15 [History] Isosorbide MONOnitrate (24 HR) [Imdur] 30 mg PO DAILY 06/26/15 [History] LORazepam [Ativan] 1 mg PO TID 06/26/15 [History] Rosuvastatin [Crestor] 40 mg PO HS 06/26/15 [History] Calcitriol [Rocaltrol] 0.25 mcg PO BID 02/28/16 [History] Cyanocobalamin (Vitamin B-12) [Vitamin B12] 1,000 mcg PO DAILY 02/28/16 [History] Cyclobenzaprine [Flexeril] 10 mg PO TID PRN 02/28/16 [History] Eletriptan HBr [Relpax] 20 mg PO AD PRN 02/28/16 [History] FLUoxetine HCl [Prozac] 20 mg PO BID 02/28/16 [History] Furosemide [Lasix] 40 mg PO QAM 02/28/16 [History] Hydralazine HCl 50 mg PO HS 02/28/16 [History] Levothyroxine [Synthroid] 50 mcg PO QAM 02/28/16 [History] Potassium Chloride [Klor-Con] 20 meq PO QPM 02/28/16 [History] Verapamil ER (24 HR) [Calan SR] 180 mg PO DAILY 02/28/16 [History] Aspirin [Lo-Dose Aspirin EC] 81 mg PO DAILY 05/05/18 [History] Furosemide [Lasix] 20 mg PO QPM 05/05/18 [History] Oxycodone HCl/Acetaminophen [Percocet 5-325 mg Tablet] 1 each PO Q4H PRN 05/05/18 [History] Pantoprazole Sodium [Protonix] 40 mg PO DAILY 05/05/18 [History] Pregabalin [Lyrica] 100 mg PO TID 05/05/18 [History] Allergy/AdvReac Type Severity Reaction Status Date / Time Amoxicillin AdvReac Vomiting Verified 05/05/18 11:05 meperidine [From Demerol] AdvReac Vomiting Verified 05/05/18 11:05 Sulfa (Sulfonamide AdvReac Vomiting Verified 05/05/18 11:05 Antibiotics) All Systems Reviewed: The remainder of the systems were reviewed and are negative - Constitutional Constitutional: as per HPI - Cardiovascular Cardiovascular: no chest pain, no syncope - Respiratory Respiratory: no cough, no dyspnea on exertion - Musculoskeletal Musculoskeletal: abnormal gait, arthralgias, back pain, joint swelling, limited range of motion, muscle cramps, radiating pain into limb, no numbness, no stiffness Physical Exam - Constitutional Vitals: Temp Pulse Resp BP Pulse Ox 98.8 F 79 16 117/81 95 05/07/18 15:33 05/07/18 15:33 05/07/18 15:33 05/07/18 15:33 05/07/18 15:33 Results - Labs Result Diagrams: 05/07/18 17:39 05/07/18 17:39 Labs: Abnormal lab results WBC 4.0 K/mcL (4.3-11.1) L 05/05/18 13:16 RDW 15.7 % (11.5-14.5) H 05/05/18 13:16 BUN 25 mg/dL (8-23) H 05/05/18 13:16 BUN/Creatinine Ratio 30 (6-26) H 05/05/18 13:16 All other labs normal. Consult Discharge Plan - Plan Referrals: Sharifa Hutton DO [Primary Care Provider] -
[2018-05-07 18:11] LABS: Basophils % 0.2 %; Eosinophils # 0.1 K/mcL (0.0-0.6); Eosinophils % 2.6 %; Hematocrit 33.6 % (35.3-44.9); Immature Granulocytes % 0.2 % (0-4); Lymphocytes # 0.8 K/mcL (0.6-4.6); Lymphocytes % 17.4 %; Mean Corpuscular HGB Conc 32.7 g/dL (31.6-35.5); Mean Corpuscular Hemoglobin 28.9 pg (28.0-33.3); Mean Corpuscular Volume 88.2 fL (83.0-100.0); Mean Platelet Volume 10.9 fL (9.4-12.4); Monocytes # 0.6 K/mcL (0.0-1.3); Monocytes % 12.3 %; Neutrophils # 3.1 K/mcL (1.6-8.9); Platelet Count 216 K/mcL (140-400); Red Blood Count 3.81 M/mcL (3.82-4.97); Segmented Neutrophils % 67.3 %
[2018-05-07 18:19] LABS: Prothrombin Time 11.5 Seconds (9.4-12.1)
[2018-05-07 18:30] LABS: BUN/Creatinine Ratio 22 (6-26); Blood Urea Nitrogen 23 mg/dL (8-23); Calcium 8.3 mg/dL (8.6-10.3); Carbon Dioxide 28 mEq/L (23-29); Chloride 107 mEq/L (98-107); Glucose 99 mg/dL (70-105); Osmolality,Calculated 292 (280-300); Potassium 3.9 mEq/L (3.5-5.1); Sodium 139 mEq/L (136-145); eGFR For Non-African Americans 52 (> 60)
[2018-05-08] MEDS: OXYCODONE Oral CONC 10 MG/0.5 ML ORAL.SYG SL PRN ×3 (00:04→17:02)
[2018-05-08] MEDS: *HR* Heparin 5,000 UNIT/ML VIAL SQ SCH ×2 (05:49→17:02)
[2018-05-08] MEDS: Ondansetron 4 MG/2 ML VIAL IVP PRN ×2 (07:30→14:54)
--- NOTE | 2018-05-08 08:04 | Orthopedics Progress Note ---
Date of Encounter: 05/08/18 Time of Encounter: 08:01 Subjective Interval history: Patient seen this morning admitted with significant left hip pain. Patient has a long history of left hip pain for years, status post recent fall. This is exacerbated her already existing arthritic condition. The pain is localized to the groin area makes it difficult for her family. The patient was actually scheduled for hip injection today to try to delay her previously planned hip replacement surgery. Patient has had right hip replaced in the replacement surgery as well. Well-nourished well-developed no acute distress Right lower extremity Limited flexion-extension rotation of the hip Full flexion and extension no instability of the knee Negative straight leg raise Neurovascular intact. I reviewed the x-rays show retained hardware lumbar spine, right hip replacement. Show significant left hip arthritis with decreased joint space sclerosis formation. We discussed different treatment options,The patient is severely disabled and would like her hip replaced. Patient meets all criteria has failed extensive conservative management including anti-inflammatory medication narcotic pain medication. Plan will be for robotic hip replacement. We reviewed the risks and benefits as well as recovery. All questions were answered. The patient agreed to this treatment plan and acknowledged an understanding of the treatment plan as described. Objective Vital signs: Vital Signs Temp Pulse Resp BP Pulse Ox 05/08/18 06:32 97.8 F 73 16 137/84 95 05/08/18 03:38 97.8 F 67 15 143/80 96 05/07/18 23:03 97.7 F 62 16 111/72 97 05/07/18 18:34 97.6 F 88 16 112/79 96 05/07/18 18:31 97.9 F 83 16 112/74 96 05/07/18 15:33 98.8 F 79 16 117/81 95 05/07/18 12:12 98.5 F 79 18 98/63 95 05/07/18 08:01 98.3 F 72 16 134/79 97 Intake and Output 05/07/18 05/08/18 05/08/18 23:59 07:59 15:59 Other: Stool Size Moderate Stool Consistency soft Stool Color Brown # Voids 1 1 # Bowel Movements 1 Weight 63.4 kg Patient Weight 05/08/18 23:59 Weight 63.4 kg - Labs CBC & BMP: 05/07/18 17:39 05/07/18 17:39 Labs: Abnormal lab results RBC 3.81 M/mcL (3.82-4.97) L 05/07/18 17:39 Hgb 11.0 g/dL (11.5-15.4) L 05/07/18 17:39 Hct 33.6 % (35.3-44.9) L 05/07/18 17:39 RDW 16.0 % (11.5-14.5) H 05/07/18 17:39 Est GFR (Non-Af Amer) 52 (> 60) L 05/07/18 17:39 Calcium 8.3 mg/dL (8.6-10.3) L 05/07/18 17:39 Consult Discharge Plan - Plan Referrals: Sharifa Hutton DO [Primary Care Provider] -
[2018-05-08] MEDS: Furosemide 20 MG TABLET PO SCH ×2 (10:08→16:58)
[2018-05-08] MEDS: Cyanocobalamin (B-12) 1,000 MCG TABLET PO SCH (10:08)
[2018-05-08] MEDS: *HR* LORazepam 1 MG TABLET PO SCH ×3 (10:09→21:20)
[2018-05-08] MEDS: Isosorbide MONOnitrate (24 HR) 30 MG TAB.ER.24H PO SCH (10:09)
[2018-05-08] MEDS: Pregabalin 50 MG CAPSULE PO SCH ×3 (10:09→21:21)
[2018-05-08] MEDS: FLUoxetine 20 MG CAPSULE PO SCH ×2 (10:09→21:20)
[2018-05-08] MEDS: Verapamil ER (24 HR) 180 MG TABLET.ER PO SCH (10:09)
[2018-05-08] MEDS: Aspirin Enteric Coated 81 MG Tablet PO SCH (10:09)
--- NOTE | 2018-05-08 11:00 | Cardiology Consult Note ---
<Cally Burks - Last Filed: 05/08/18 11:53> Date of Encounter: 05/08/18 Time of Encounter: 10:58 Assessment and Plan (1) Preop cardiovascular exam Current Visit: Yes Status: Acute - Pt is not endorsing chest pain at present, does endorse some occasional chest pain that occurs with emotional stress, but not with exertion - Pt does endorse some difficulty breathing when laying flat at night, but does not endorse any exertional dyspnea, LE edema, or cough - Pt had a recent cardiac workup in October 2017 which included nuclear stress test showing LVEF 70% and no signs of ischemia/infarct - Pt's EKG during this admission is unchanged when compared to previous from 02/2018 - Pt does not have any new or worsening cardiac symptoms and has been compliant with her medications - Pt's physical exam did not reveal any murmur, pulmonary abnormalities, or overt signs of CHF - At this time, there is no need for further cardiac testing according to ACC AHA 2014 preoperative guidelines - RCRI class 1 risk with known cardiovascular disease - Pt is an intermediate but acceptable risk for this surgery from a cardiac standpoint Discussion w patient/family: The assessment and plan as outlined above was discussed with the patient and/or family members who expressed understanding and agreement. All questions were answered. Thank you for involving us in the care of your patient. Please call with any questions. History of Present Illness Consult date: 05/08/18 Requesting physician: Sejal Fairchild Consult reason: Pre-op clearance Chief complaint: Hip pain History of present illness: Ms. Garcia is a 72 year old female who presented with Left hip pain after a fall. She was found to have no acute fracture but significant degenerative disease and pt insisted on THR to relieve severe symptoms. Pt just had right THR in October with full cardiac workup. At that time, her cardiac workup did not place her at an increased risk of adverse cardiac event during surgery. She had a stress test October 2017 which showed LVEF 70% and no signs of ischemia or infarct. Pt does not have any new or worsening symptoms on exam and EKG is largely unchanged when compared to previous. Before the problems with her hip began, she was able to do her own shopping without chest pain or shortness of breath. She does endorse occasional chest pains, but she states that these happen during times of emotional stress and are relieved by Ativan. Additionally, she states that she has to sleep on several pillows at night but attributes this to both GERD and difficulty breathing. Pt additionally endorses some dizziness/lightheadness upon standing for the last year that happens every day, but pt has a recorded history of mild hypotension for which Carvedilol dosing was halved. She has no wheezes or crackles in her lungs and no lower extremity edema on exam. Pt has an RCRI class 1 risk but known coronary artery disease which makes her an intermediate, but acceptable risk for total hip replacement surgery. Past Med Surg Social Fam HX - Past Medical History Medical history: arthritis, coronary artery disease, DVT, hyperlipidemia, hypertension, migraine, renal disease, thyroid disease Psychiatric history: anxiety, bipolar, depression - Past Surgical History Surgical History: cholecystectomy, hysterectomy, other Additional surgical history: mid back sx, knee surgery, foot and shoulder surgery gastric bypass, R hip replacement - Social History Smoking Status: Former smoker Smokeless Tobacco Status: No Alcohol use: none Drug use: none - Family History Mother Hx Family Cardiac Disorders: Yes Medications and Allergies Carvedilol [Coreg] 12.5 mg PO BID 06/26/15 [History] Isosorbide MONOnitrate (24 HR) [Imdur] 30 mg PO DAILY 06/26/15 [History] LORazepam [Ativan] 1 mg PO TID 06/26/15 [History] Rosuvastatin [Crestor] 40 mg PO HS 06/26/15 [History] Calcitriol [Rocaltrol] 0.25 mcg PO BID 02/28/16 [History] Cyanocobalamin (Vitamin B-12) [Vitamin B12] 1,000 mcg PO DAILY 02/28/16 [History] Cyclobenzaprine [Flexeril] 10 mg PO TID PRN 02/28/16 [History] Eletriptan HBr [Relpax] 20 mg PO AD PRN 02/28/16 [History] FLUoxetine HCl [Prozac] 20 mg PO BID 02/28/16 [History] Furosemide [Lasix] 40 mg PO QAM 02/28/16 [History] Hydralazine HCl 50 mg PO HS 02/28/16 [History] Levothyroxine [Synthroid] 50 mcg PO QAM 02/28/16 [History] Potassium Chloride [Klor-Con] 20 meq PO QPM 02/28/16 [History] Verapamil ER (24 HR) [Calan SR] 180 mg PO DAILY 02/28/16 [History] Aspirin [Lo-Dose Aspirin EC] 81 mg PO DAILY 05/05/18 [History] Furosemide [Lasix] 20 mg PO QPM 05/05/18 [History] Oxycodone HCl/Acetaminophen [Percocet 5-325 mg Tablet] 1 each PO Q4H PRN 05/05/18 [History] Pantoprazole Sodium [Protonix] 40 mg PO DAILY 05/05/18 [History] Pregabalin [Lyrica] 100 mg PO TID 05/05/18 [History] Allergy/AdvReac Type Severity Reaction Status Date / Time Amoxicillin AdvReac Vomiting Verified 05/05/18 11:05 meperidine [From Demerol] AdvReac Vomiting Verified 05/05/18 11:05 Sulfa (Sulfonamide AdvReac Vomiting Verified 05/05/18 11:05 Antibiotics) All Systems Review: The remainder of the systems were reviewed and are negative - Constitutional Constitutional: no chills, no fever(s) - Cardiovascular Cardiovascular: lightheadedness, orthopnea, no chest pain with exertion, no diaphoresis, no dyspnea on exertion, no syncope - Gastrointestinal Gastrointestinal: constipation, no abdominal pain, no diarrhea, no nausea - Genitourinary Genitourinary: no dysuria - Neurological Neurological: dizziness, no numbness, no syncope, no tingling - Psychiatric Psychiatric: anxiety, depression, panic attacks Physical Examination Vital Signs, Last 4 Hours Pulse BP 05/08/18 10:06 69 135/78 General: Conversant, No Apparent Distress HEENT: Atraumatic, Normocephaly, Mucus Membranes Moist Neck: No JVD, Normal carotid pulses Cardiac: Reg Rate and Rhythm, Normal S1 and S2, No Murmur Lungs: Normal Breath Sounds, No Wheeze, Rales, Rhonchi Neuro: Alert and responsive, No focal deficits noted Abdomen: Soft, Non-Tender Skin: No rashes noted on visualized skin Musculoskeletal: No Chest Wall Tenderness Extremities: No Clubbing, No Cyanosis, No Edema, Normal Pulses Results 05/07/18 17:39 05/07/18 17:39 Lab Results 05/07/18 05/07/18 05/07/18 17:39 17:39 17:39 WBC 4.6 Hgb 11.0 L Hct 33.6 L Plt Count 216 INR 1.0 Sodium 139 Potassium 3.9 Chloride 107 Carbon Dioxide 28 BUN 23 Creatinine 1.03 Glucose 99 Calcium 8.3 L - EKG Interpretation EKG results cardiology: personally reviewed Consult Discharge Plan - Plan Referrals: Sharifa Hutton DO [Primary Care Provider] - <Elisa Dewitt - Last Filed: 05/08/18 18:41> Date of Encounter: 05/08/18 - Attending Attestation I examined this patient and my medical decision-making was reviewed with the Resident Physician. I agree with the documented findings, disposition and treatment plan as described. Ms. Garcia is known to me from the outpatient Cardiology office - last seen . Has a history of CAD. Recent stress testing 10/2017 negative for ischemia or infarct, normal gated EF. Patient denies recent chest pain symptoms. No cardiac murmurs on exam. ECG done this admission - no changes when compared to old ECG. Given recent negative stress testing, normal LVEF, no chest pain, patient will be at acceptable intermediate risk to proceed with orthopedic surgery. Recommend resuming aspirin when safe from a surgical perspective. Recommend routine outpatient Cardiology follow up July 2018 per patient request - our office to set up appointment. Assessment and Plan Discussion w patient/family: The assessment and plan as outlined above was discussed with the patient and/or family members who expressed understanding and agreement. All questions were answered. Thank you for involving us in the care of your patient. Please call with any questions. History of Present Illness History of present illness: Ms. Garcia is a 72 year old female All Systems Review: The remainder of the systems were reviewed and are negative Physical Examination Vital Signs, Last 4 Hours Temp Pulse Resp BP Pulse Ox 05/08/18 16:54 98.1 F 72 16 127/81 96 Results 05/07/18 17:39 05/07/18 17:39
--- NOTE | 2018-05-08 12:14 | Internal Med Progress Note ---
Hospitalist Progress Note - Encounter Date of Encounter: 05/08/18 Time of Encounter: 12:11 - Subjective Interval History: Pt presented with severe left hip pain, Ortho planned total hip replacement tomorrow. She is doing ok this morning. She has no fever, chills, or night sweats. Left hip has improved. - Exam Vitals: Temp Pulse Resp BP Pulse Ox 97.8 F 69 16 135/78 95 05/08/18 06:32 05/08/18 10:06 05/08/18 06:32 05/08/18 10:06 05/08/18 06:32 Exam: PHYSICAL EXAMINATION: GENERAL APPEARANCE: The patient is alert, oriented and in no acute distress. HEENT: Head is normocephalic. The sinuses are nontender. Pupils are equal and reactive. The nares are patent. Oropharynx clear without lesions. NECK: Supple without lymphadenopathy. HEART: Regular rate and rhythm. LUNGS: No crackles or wheezes are heard. ABDOMEN: Soft, nontender, nondistended with good bowel sounds heard. Inguinal area is normal. EXTREMITIES: Without cyanosis, clubbing or edema. NEUROLOGICAL: Gross nonfocal. SKIN: Warm and dry without any rash. - Assessment and Plan (1) Osteoarthritis Current Visit: No Status: Chronic Assessment and Plan: She is chronic patient patient of low back pain with degenerative disc disease. CT thoracic and lumbar spine: No acute abnormality in the thoracic or lumbar spine., Status post L2-L5 spinal fusion. Grade 1 anterolisthesis of L4 on L5.,Moderate L5-S1 degenerative disc disease. Mild degenerative disc disease ,throughout the thoracic spine and lumbar spine. continue symptomatic and supportive care. Cardio risk evaluation for surgery completed today, intermediate risk due to Hx of CAD. Ortho to do total hip replacement tomorrow. (2) Left hip pain Current Visit: Yes Status: Acute Assessment and Plan: The patient had left hip pain after fall on left hip 3 days back and it is gra dually getting worse. failed conservative treatment, ortho will perform total hip replacement tomorrow. (3) Coronary artery disease Current Visit: No Status: Chronic Assessment and Plan: Pt has no chest pain, BP controlled, cardiology consulted for pre-op risk evaluation. intermediate risk due to Hx of CAD. (4) History of DVT (deep vein thrombosis) Current Visit: No Status: Chronic Assessment and Plan: on SQ heparin for DVT prophylaxis. (5) Hyperlipidemia Current Visit: No Status: Chronic Assessment and Plan: Resume crestor (6) Hypertension Current Visit: No Status: Chronic Assessment and Plan: Stable with current home medications Coreg, Hydralazine PO, Imdur, Verapamil ER (7) Sciatic leg pain Current Visit: No Status: Chronic Assessment and Plan: She does have s/p L2-L5 spinal fusion her low back pain also concerning for sciatic pain reviewed her CT of the lumbar spine which showed moderate L5-S1 DJD need to follow up with Dr. Cruz from [place] as an out pt DVT Prophylaxis: Heparin sq. - Time Spent with Patient Total time spent is greater than 50% in coordination of care (as documented) at patient's floor/unit and/or counseling patient: Greater than 35 minutes Plan of Care Discussed with: patient Internal Medicine: Result - Labs CBC & Chem 7: 05/07/18 17:39 05/07/18 17:39 Labs: Short CBC 05/07/18 Range/Units 17:39 WBC 4.6 (4.3-11.1) K/mcL Hgb 11.0 L (11.5-15.4) g/dL Hct 33.6 L (35.3-44.9) % Plt Count 216 (140-400) K/mcL Neutrophils # 3.1 (1.6-8.9) K/mcL BMP 05/07/18 17:39 Sodium 139 Potassium 3.9 Chloride 107 Carbon Dioxide 28 BUN 23 Creatinine 1.03 Glucose 99 Calcium 8.3 L - ABG Interpretation ABG results: PT/INR, D-dimer PT 11.5 Seconds (9.4-12.1) 05/07/18 17:39 - Impressions Impressions Hip CT 05/07/18 17:25 IMPRESSION: 1. Limited axial images of the bilateral hips and bilateral knees utilizing Tony protocol for preoperative planning. 2. Moderate osteoarthritic changes of the left hip. 3. Status post right hip hemiarthroplasty and bilateral total knee arthroplasties. 4. Small fluid collection along the surgical scar of the right hip likely reflecting postoperative seroma. D/ / Scar Giraldo MD / Scar Giraldo MD Interpreting Provider: Scar Giraldo MD Consult Discharge Plan - Plan Referrals: Sharifa Hutton DO [Primary Care Provider] - (1) Osteoarthritis Qualifiers: Osteoarthritis location: hip Osteoarthritis type: primary Laterality: right Qualified Code(s): M16.11 - Unilateral primary osteoarthritis, right hip (3) Coronary artery disease Qualifiers: Coronary Disease-Associated Artery/Lesion type: [place] artery [place] vs. transplanted heart: [place] heart Associated angina: without angina Qualified Code(s): I25.10 - Atherosclerotic heart disease of [place] coronary artery without angina pectoris (5) Hyperlipidemia Qualifiers: Hyperlipidemia type: unspecified Qualified Code(s): E78.5 - Hyperlipidemia, unspecified (6) Hypertension Qualifiers: Hypertension type: essential hypertension Qualified Code(s): I10 - Essential (primary) hypertension
--- NOTE | 2018-05-08 20:05 | Anesthesia Evaluation PreOp ---
Addendum entered and electronically signed by Javy Clark MD 05/09/18 11:52: Patient had Spinal Fusion, will provide GA. Patient agrees and wishes to proceed. Original Note: Date of Encounter: 05/08/18 Time of Encounter: 20:03 - Past History Planned Operation: Left Total Hip Cardiac History: AK (patient denies), Angina, HTN, Hyperlipidemia, Arrhythmia (Hx SVT), Other (Hx PE on sub Q heparin) Pulmonary History: Denies Any Significant HX MINING HELPER History: Denies Any Significant HX Other Medical History: Renal (stones, ckd stage 3), Thyroid, GERD, Other ( chronic lbp, anxiety/depression, fibromyalgia, "spinal deterioration", DDD cervical) Anesthesia History: No Prior Anesthetic Complications, Past Anesthesia (Kidney stones, gastric bypass, tonsils, breast, appy, cholecyst, lumbar fusion, abdominoplasty, hysterect, knee, clavicle, ctr, l shoulder, PT excision) : No Alcohol Use: none Drug use: none Medications and Allergies Carvedilol [Coreg] 12.5 mg PO BID 06/26/15 [History] Isosorbide MONOnitrate (24 HR) [Imdur] 30 mg PO DAILY 06/26/15 [History] LORazepam [Ativan] 1 mg PO TID 06/26/15 [History] Rosuvastatin [Crestor] 40 mg PO HS 06/26/15 [History] Calcitriol [Rocaltrol] 0.25 mcg PO BID 02/28/16 [History] Cyanocobalamin (Vitamin B-12) [Vitamin B12] 1,000 mcg PO DAILY 02/28/16 [History] Cyclobenzaprine [Flexeril] 10 mg PO TID PRN 02/28/16 [History] Eletriptan HBr [Relpax] 20 mg PO AD PRN 02/28/16 [History] FLUoxetine HCl [Prozac] 20 mg PO BID 02/28/16 [History] Furosemide [Lasix] 40 mg PO QAM 02/28/16 [History] Hydralazine HCl 50 mg PO HS 02/28/16 [History] Levothyroxine [Synthroid] 50 mcg PO QAM 02/28/16 [History] Potassium Chloride [Klor-Con] 20 meq PO QPM 02/28/16 [History] Verapamil ER (24 HR) [Calan SR] 180 mg PO DAILY 02/28/16 [History] Aspirin [Lo-Dose Aspirin EC] 81 mg PO DAILY 05/05/18 [History] Furosemide [Lasix] 20 mg PO QPM 05/05/18 [History] Oxycodone HCl/Acetaminophen [Percocet 5-325 mg Tablet] 1 each PO Q4H PRN 05/05/18 [History] Pantoprazole Sodium [Protonix] 40 mg PO DAILY 05/05/18 [History] Pregabalin [Lyrica] 100 mg PO TID 05/05/18 [History] Allergy/AdvReac Type Severity Reaction Status Date / Time Amoxicillin AdvReac Vomiting Verified 05/05/18 11:05 meperidine [From Demerol] AdvReac Vomiting Verified 05/05/18 11:05 Sulfa (Sulfonamide AdvReac Vomiting Verified 05/05/18 11:05 Antibiotics) - Meds/Allergy Pre-op Review Medications Reviewed: Yes Allergies Reviewed: Yes Beta Blockers on Current Med List: Yes If Beta Blockers taken, Date/Time (Last Dose taken): 05/08/18 @ 17:01 Anesthesia Results - Labs 05/07/18 17:39 05/07/18 17:39 - Imaging EKG: report reviewed (SR) Additional studies: stress 10/30/17 EF-70% No ischemia Preop cardiovascular exam Current Visit: Yes Status: Acute - Pt is not endorsing chest pain at present, does endorse some occasional chest pain that occurs with emotional stress, but not with exertion - Pt does endorse some difficulty breathing when laying flat at night, but does not endorse any exertional dyspnea, LE edema, or cough - Pt had a recent cardiac workup in October 2017 which included nuclear stress test showing LVEF 70% and no signs of ischemia/infarct - Pt's EKG during this admission is unchanged when compared to previous from 02/2018 - Pt does not have any new or worsening cardiac symptoms and has been compliant with her medications - Pt's physical exam did not reveal any murmur, pulmonary abnormalities, or overt signs of CHF - At this time, there is no need for further cardiac testing according to ACC AHA 2014 preoperative guidelines - RCRI class 1 risk with known cardiovascular disease - Pt is an intermediate but acceptable risk for this surgery from a cardiac standpoint Anesthesia Exam Vital Signs/O2 Sat, Most Current Temp Pulse Resp BP Pulse Ox 98.1 F 78 14 132/82 94 05/08/18 19:00 05/08/18 19:00 05/08/18 19:00 05/08/18 19:00 05/08/18 19:00 - HEENT Pupil (Motor): Pupils equal, EOMI Mallampati: II Teeth: Missing Denture Type: Upper: Complete, Lower: Partial Oral Opening: Greater than 3 - MINING HELPER LOC: Oriented MINING HELPER Motor: Normal RUE, Normal LUE, Normal RLE, Normal LLE, Normal Face MINING HELPER Sensory: Normal: RUE, LUE, RLE, LLE, Face - Cardiac Rhythm: Regular Murmur: None JVD: No Carotid Bruit: No - Pulmonary Breath Sounds: bilateral Clear Respiratory Effort: Symmetrical Anesthesia Assess/Plan ASA Score: 3 Anesthetic Plan: MAC, Spinal Autologous Blood: Yes Monitoring Plan: Standard Monitors Recovery Plan: PACU
[2018-05-09] MEDS: *HR* Heparin 5,000 UNIT/ML VIAL SQ SCH ×2 (00:04→16:37)
[2018-05-09] MEDS: OXYCODONE Oral CONC 10 MG/0.5 ML ORAL.SYG SL PRN ×2 (04:45→22:26)
[2018-05-09 04:58] LABS: Basophils % 0.2 %; Eosinophils # 0.2 K/mcL (0.0-0.6); Eosinophils % 3.6 %; Hematocrit 35.5 % (35.3-44.9); Hemoglobin 11.5 g/dL (11.5-15.4); Immature Granulocytes % 0.2 % (0-4); Lymphocytes # 0.9 K/mcL (0.6-4.6); Lymphocytes % 21.8 %; Mean Corpuscular HGB Conc 32.4 g/dL (31.6-35.5); Mean Corpuscular Hemoglobin 28.6 pg (28.0-33.3); Mean Corpuscular Volume 88.3 fL (83.0-100.0); Mean Platelet Volume 10.9 fL (9.4-12.4); Monocytes # 0.5 K/mcL (0.0-1.3); Monocytes % 11.5 %; Neutrophils # 2.6 K/mcL (1.6-8.9); Platelet Count 186 K/mcL (140-400); Red Blood Count 4.02 M/mcL (3.82-4.97); Red Cell Distribution Width 15.5 % (11.5-14.5); Segmented Neutrophils % 62.7 %
[2018-05-09 05:18] LABS: BUN/Creatinine Ratio 20 (6-26); Blood Urea Nitrogen 14 mg/dL (8-23); Calcium 8.3 mg/dL (8.6-10.3); Carbon Dioxide 28 mEq/L (23-29); Chloride 106 mEq/L (98-107); Glucose 101 mg/dL (70-105); Osmolality,Calculated 289 (280-300); Potassium 3.6 mEq/L (3.5-5.1); Sodium 139 mEq/L (136-145); eGFR For Non-African Americans > 60 (> 60)
[2018-05-09] MEDS: Aspirin Enteric Coated 81 MG Tablet PO SCH (08:02)
--- NOTE | 2018-05-09 09:29 | Electrocardiograph Report ---
[address] [address] Test Date: 2018-05-07 Pat Name: Olga Lidia Garcia Department: 114 Room: [facility] Gender: F [employer]: : 1945 Requested By: Sejal Fairchild Order Number: [id number] Reading MD: Madi Dougherty Measurements Intervals [place] Rate: 73 P: -3 HI: 148 QRS: -15 QRSD: 93 T: 3 QT: 436 QTc: 461 Interpretive Statements SINUS RHYTHM LATE R WAVE TRANSITION PROLONGED QT INTERVAL Electronically Signed On 05-09-2018 9:27:26 EST by Madi Dougherty
[2018-05-09] MEDS: Pregabalin 50 MG CAPSULE PO SCH ×2 (09:40→19:51)
[2018-05-09] MEDS: Furosemide 20 MG TABLET PO SCH (09:40)
[2018-05-09] MEDS: Cyanocobalamin (B-12) 1,000 MCG TABLET PO SCH (09:41)
[2018-05-09] MEDS: *HR* LORazepam 1 MG TABLET PO SCH ×2 (09:41→22:46)
[2018-05-09] MEDS: Isosorbide MONOnitrate (24 HR) 30 MG TAB.ER.24H PO SCH (09:41)
[2018-05-09] MEDS: FLUoxetine 20 MG CAPSULE PO SCH ×2 (09:41→19:52)
[2018-05-09] MEDS: Verapamil ER (24 HR) 180 MG TABLET.ER PO SCH (09:41)
[2018-05-09] MEDS ORDERED: *HR* Rocuronium Bromide 50 MG/5 ML VIAL ONE (09:50)
[2018-05-09] MEDS ORDERED: *HR* Succinylcholine 200 MG/10 ML VIAL IVP ONE (09:50)
[2018-05-09] MEDS ORDERED: Lidocaine -MPF 2% 2 ML VIAL ONE (10:54)
[2018-05-09] MEDS ORDERED: Ondansetron 4 MG/2 ML VIAL ONE (10:54)
[2018-05-09] MEDS ORDERED: Dexamethasone 4 MG/ML VIAL ONE (10:54)
[2018-05-09] MEDS ORDERED: *HR* Midazolam HCl 2 MG/2 ML VIAL ONE (10:54)
[2018-05-09] MEDS ORDERED: *HR* Propofol 200 MG/20 ML VIAL IVP ONE (10:54)
[2018-05-09] MEDS ORDERED: *HR* FentaNYL (PF) 100 MCG/2 ML VIAL ONE (10:54)
[2018-05-09] MEDS ORDERED: Acetaminophen IV 1,000 MG/100 ML INFUS..BTL ONE (11:09)
[2018-05-09] MEDS ORDERED: Famotidine 20 MG/2 ML VIAL ONE (11:09)
[2018-05-09] MEDS ORDERED: Clindamycin 900 MG/50 ML 900 MG/50 ML IV.SOLN IVPB ONE ×2 (11:44→12:15)
[2018-05-09] MEDS ORDERED: Tranexamic Acid 1,000 MG/10 ML VIAL ONE (11:45)
[2018-05-09] MEDS ORDERED: *HR* OxyCODONE Immed Rel 5 MG TABLET PO PRN (12:02)
[2018-05-09] MEDS ORDERED: *HR* Labetalol 20 MG/4 ML SYRINGE IVP PRN (12:02)
[2018-05-09] MEDS ORDERED: *HR* Promethazine 25 MG/ML VIAL IVP PRN (12:02)
[2018-05-09] MEDS ORDERED: Ethanol\\Acetic Acid\\Na Ace\\Ben 1,000 ML IRRIG.SOLN IR ONE (12:03)
[2018-05-09] MEDS ORDERED: *HR* PHENYLEPHRINE 1,000 MCG/10 ML SYRINGE IVP ONE (12:34)
[2018-05-09] MEDS ORDERED: EPHEDrine 50 MG/ML VIAL ONE (12:50)
[2018-05-09] MEDS ORDERED: *HR* Morphine 10 MG/ML VIAL ONE (13:10)
--- NOTE | 2018-05-09 13:52 | Orthopedic Operative Note ---
Date of procedure: 05/09/18 Pre-op diagnosis: Left hip arthritis Post-op diagnosis: same Procedure: Procedure: Left Total Hip Replacment robotic-assisted Estimated blood loss: 200 cc Hardware: Metal and polyethylene replacement. Alden DM Cup: 52 cup 2 6.5 cancellus screws Femoral size 8 stem Head: 0 head with Shilpa Procedural Notes: Grade 4 arthritic changes femoral head acetabular socket, procedure performed with robotic assistance. Patient 3 mm longer operative versus nonoperative sized preoperatively as measured by CT scan Operative procedure: The patient was brought to the operating room and placed on the operating room table. After general anesthesia was administered the patient was placed in the lateral decubitus position with the operative leg up. All pressure points were padded appropriately and the head was stabilized in the neutral position. The operative extremity was prepped and draped in the sterile surgical fashion patient received IV antibiotic prior to skin incision. 3 Steinmann pins were placed in the iliac crest 3 cm proximal to the anterior superior iliac spine this was for the robotic-assisted sensor. This was done through a small 2 cm incision. A standard posterior approach is made to the operative hip, the incision was made through the skin and subcutaneous tissue hemostasis was obtained with Bovie cautery. Using careful sharp dissection the fascia was identified and incised exposing the external rotators. The greater trochanter was marked, and length was measured at this time utilizing robotic assistance. The external rotators were released off the greater trochanter and tagged with #2 FiberWire suture. The capsule was T'd open and the hip was brought into internal rotation. Patient noted to have grade 4 arthritic changes femoral head. The femoral neck cut was made at the appropriate level roughly 15mm proximal to the lesser trochanter aced on preoperative templating. An anterior capsulotomy was performed for the anterior retractor. Soft tissues removed from the acetabulum. Patient noted to have grade 4 arthritic changes acetabulum. The acetabulum reference point was confirmed. The acetabulum was then mapped with robotic assistance. Based on the preoperative plan the acetabulum was reamed in one step with a 51 reamer. The 52 acetabulum was impacted with robotic assistance and 47 degrees of abduction and 20 degrees of anteversion. Fixation was aug mented with 2 screws 6.5 mm in the posterior superior quadrant. The hip was brought back in to internal rotation and prepared with the ammonia box operator followed by the canal finder followed by the reaming process to a size 7/8 broaching process in 20 degrees anteversion. It was broached up to the appropriate size 8 Trial reduction revealed leg lengths close to normal. The femoral implant was impacted in place in 20 degrees of anteversion. Trial reduction found the hip to be stable with 0 head and Shilpa. The trials were removed and the real implants were impacted in place. The hip was reduced, patient had robotic confirmed leg length of 18 mm longer than the contralateral side. The hip had excellent stability with forward flexion to 90 degrees adduction of 30 degrees and internal rotation of 60 degrees. The hip had no shuck. The hip sat with an antibacterial solution. It was irrigated out with 2 L of pulse irrigation. The Steinmann pins were removed. The deep tissue was irrigated and closed deep with #1 PDS suture superficially with 0 PDS suture and skin was closed with skin kateryna and zip tie. The patient was placed in a sterile dressing and abduction pillow. The patient was extubated and transferred to the recovery room in stable condition. Anesthesia: GETA Surgeon: Keenan Bowers Was there an certified dental assistant present: No Estimated blood loss (cc): 200 Condition: stable Disposition: PACU
[2018-05-09] MEDS: *HR* Morphine 2 MG/ML SYRINGE IVP PRN ×5 (14:05→14:45)
[2018-05-09 14:42] LABS: Hematocrit 33.6 % (35.3-44.9); Hemoglobin 10.7 g/dL (11.5-15.4)
[2018-05-09] MEDS: *HR* HYDROmorphone (PF) 1 MG/ML SYRINGE IVP PRN ×3 (15:12→15:30)
--- NOTE | 2018-05-09 15:45 | Anesthesia Evaluation Post Op ---
Date of Encounter: 05/09/18 Time of Encounter: 15:45 - Vital Signs Vital Signs: Vital Signs/O2 Sat/Glucose, Most Current Temp Pulse Resp BP Pulse Ox 05/09/18 15:30 68 18 141/73 98 05/09/18 15:20 98.1 F 64 18 121/70 99 05/09/18 15:10 63 20 112/93 93 05/09/18 15:00 98.0 F 67 22 110/20 96 05/09/18 14:50 65 22 110/20 96 05/09/18 14:40 97.6 F 68 22 120/75 98 05/09/18 14:30 68 22 122/73 96 05/09/18 14:20 98.0 F 64 22 115/63 96 05/09/18 14:10 67 20 124/76 97 05/09/18 14:00 98.1 F 66 22 124/76 98 05/09/18 13:50 70 20 120/72 98 05/09/18 13:40 98.0 F 69 16 116/66 95 - Lungs Lungs: Clear Ascult./Percussion - Airway Airway: Non-obstructed - Cardiovascular Regular Rate - Mental Status Mental Status: Alert & Oriented, Answers Appropriately - Pain Pain Scale: 2 - Nausea Vomiting Nausea Vomiting: Not Present - Hydration Hydration: Ice chips - Discharge PostOp Status: Transfer Patient to floor
[2018-05-09] MEDS ORDERED: OXYCODONE Oral CONC 10 MG/0.5 ML ORAL.SYG SL PRN (16:04)
[2018-05-09] MEDS ORDERED: Ondansetron 4 MG/2 ML VIAL IVP PRN ×2 (16:04)
[2018-05-09] MEDS ORDERED: Temazepam 15 MG CAPSULE PO PRN (16:04)
[2018-05-09] MEDS ORDERED: Ringers Solution, Lactated 1,000 ML IVC SCH (16:04)
[2018-05-09] MEDS ORDERED: Naloxone 0.4 MG/ML INJ IVP PRN ×2 (16:04)
[2018-05-09] MEDS ORDERED: Clindamycin 900 MG/50 ML 900 MG/50 ML IV.SOLN IVPB SCH (16:04)
[2018-05-09] MEDS ORDERED: Sennosides 8.6 MG TABLET PO PRN (16:04)
[2018-05-09] MEDS ORDERED: MOM Conc 10 ML UD.LIQ PO PRN ×2 (16:04)
--- NOTE | 2018-05-09 16:09 | Internal Med Progress Note ---
Hospitalist Progress Note - Encounter Date of Encounter: 05/09/18 Time of Encounter: 16:06 - Subjective Interval History: Pt presented with severe left hip pain, Ortho planned total hip replacement tomorrow. She is doing ok this morning. She has no fever, chills, or night sweats. Left hip has improved. - Exam Vitals: Temp Pulse Resp BP Pulse Ox 98.0 F 68 16 129/81 97 05/09/18 15:50 05/09/18 15:50 05/09/18 15:50 05/09/18 15:50 05/09/18 15:50 Exam: PHYSICAL EXAMINATION: GENERAL APPEARANCE: The patient is alert, oriented and in no acute distress. HEENT: Head is normocephalic. The sinuses are nontender. Pupils are equal and reactive. The nares are patent. Oropharynx clear without lesions. NECK: Supple without lymphadenopathy. HEART: Regular rate and rhythm. LUNGS: No crackles or wheezes are heard. ABDOMEN: Soft, nontender, nondistended with good bowel sounds heard. Inguinal area is normal. EXTREMITIES: Without cyanosis, clubbing or edema. NEUROLOGICAL: Gross nonfocal. SKIN: Warm and dry without any rash. - Assessment and Plan (1) Left hip pain Current Visit: Yes Status: Acute Assessment and Plan: The patient had left hip pain after fall on left hip 3 days back and it is gradually getting worse. failed conservative treatment, ortho will perform total hip replacement today. (2) Osteoarthritis Current Visit: No Status: Chronic Assessment and Plan: She is chronic patient patient of low back pain with degenerative disc disease. CT thoracic and lumbar spine: No acute abnormality in the thoracic or lumbar spine., Status post L2-L5 spinal fusion. Grade 1 anterolisthesis of L4 on L5.,Moderate L5-S1 degenerative disc disease. Mild degenerative disc disease ,throughout the thoracic spine and lumbar spine. continue symptomatic and supportive care. Cardio risk evaluation for surgery completed today, intermediate risk due to Hx of CAD. Ortho to do total hip replacement today. (3) Coronary artery disease Current Visit: No Status: Chronic Assessment and Plan: Pt has no chest pain, BP controlled, cardiology consulted for pre-op risk evaluation. intermediate risk due to Hx of CAD. (4) History of DVT (deep vein thrombosis) Current Visit: No Status: Chronic Assessment and Plan: on SQ heparin for DVT prophylaxis. (5) Hyperlipidemia Current Visit: No Status: Chronic Assessment and Plan: Resume crestor (6) Hypertension Current Visit: No Status: Chronic Assessment and Plan: Stable with current home medications Coreg, Hydralazine PO, Imdur, Verapamil ER (7) Sciatic leg pain Current Visit: No Status: Chronic Assessment and Plan: She does have s/p L2-L5 spinal fusion her low back pain also concerning for sciatic pain reviewed her CT of the lumbar spine which showed moderate L5-S1 DJD need to follow up with Dr. Cruz from [facility] as an out pt - Time Spent with Patient Total time spent is greater than 50% in coordination of care (as documented) at patient's floor/unit and/or counseling patient: Greater than 35 minutes Plan of Care Discussed with: patient Internal Medicine: Result - Labs CBC & Chem 7: 05/09/18 14:15 05/09/18 04:14 Labs: Short CBC 05/09/18 05/09/18 Range/Units 04:14 14:15 WBC 4.2 L (4.3-11.1) K/mcL Hgb 11.5 10.7 L (11.5-15.4) g/dL Hct 35.5 33.6 L (35.3-44.9) % Plt Count 186 (140-400) K/mcL Neutrophils # 2.6 (1.6-8.9) K/mcL BMP 05/09/18 04:14 Sodium 139 Potassium 3.6 Chloride 106 Carbon Dioxide 28 BUN 14 Creatinine 0.69 Glucose 101 Calcium 8.3 L - ABG Interpretation ABG results: PT/INR, D-dimer PT 11.5 Seconds (9.4-12.1) 05/07/18 17:39 - Impressions Impressions Hip X-Ray 05/09/18 11:47 IMPRESSION: Expected postoperative findings following left total hip arthroplasty. No immediate complication. D/ / Edward Ashley / Edward Ashley Interpreting Provider: Edward Ashley Consult Discharge Plan - Plan Referrals: Sharifa Hutton DO [Primary Care Provider] - (2) Osteoarthritis Qualifiers: Osteoarthritis location: hip Osteoarthritis type: primary Laterality: right Qualified Code(s): M16.11 - Unilateral primary osteoarthritis, right hip (3) Coronary artery disease Qualifiers: Coronary Disease-Associated Artery/Lesion type: [place] artery [place] vs. transplanted heart: [place] heart Associated angina: without angina Qualified Code(s): I25.10 - Atherosclerotic heart disease of [place] coronary artery without angina pectoris (5) Hyperlipidemia Qualifiers: Hyperlipidemia type: unspecified Qualified Code(s): E78.5 - Hyperlipidemia, unspecified (6) Hypertension Qualifiers: Hypertension type: essential hypertension Qualified Code(s): I10 - Essential (primary) hypertension
[2018-05-09] MEDS: Ascorbic Acid 500 MG TABLET PO SCH (16:32)
--- NOTE | 2018-05-09 16:57 | Physician Discharge Referral ---
ExtendedCare Referral Info Transfer To: [facility] Provider in Charge: Provider in Charge after Transfer: PCP Institutional Level of Care: Skilled - Diagnosis (1) Status post total hip replacement, left Priority: Primary Status: Acute (2) Osteoarthritis of left hip Priority: Primary Status: Acute (3) Chronic pain Priority: Secondary Status: Chronic (4) Lumbar stenosis Priority: Secondary Status: Chronic (5) Coronary artery disease Priority: Secondary Status: Chronic (6) History of DVT (deep vein thrombosis) Priority: Secondary Status: Chronic (7) Hyperlipidemia Priority: Secondary Status: Chronic (8) Hypertension Priority: Secondary Status: Chronic (9) Sciatic leg pain Priority: Secondary Status: Chronic Expected Duration of Placement: < 30 days Prognosis: Good Aware of Diagnosis: Patient Aware of Prognosis: Patient - Transfer Medications Home Medications: Carvedilol [Coreg] 12.5 mg PO BID 06/26/15 [History] Isosorbide MONOnitrate (24 HR) [Imdur] 30 mg PO DAILY 06/26/15 [History] LORazepam [Ativan] 1 mg PO TID 06/26/15 [History] Rosuvastatin [Crestor] 40 mg PO HS 06/26/15 [History] Calcitriol [Rocaltrol] 0.25 mcg PO BID 02/28/16 [History] Cyanocobalamin (Vitamin B-12) [Vitamin B12] 1,000 mcg PO DAILY 02/28/16 [History] Cyclobenzaprine [Flexeril] 10 mg PO TID PRN 02/28/16 [History] Eletriptan HBr [Relpax] 20 mg PO AD PRN 02/28/16 [History] FLUoxetine HCl [Prozac] 20 mg PO BID 02/28/16 [History] Furosemide [Lasix] 40 mg PO QAM 02/28/16 [History] Hydralazine HCl 50 mg PO HS 02/28/16 [History] Levothyroxine [Synthroid] 50 mcg PO QAM 02/28/16 [History] Potassium Chloride [Klor-Con] 20 meq PO QPM 02/28/16 [History] Verapamil ER (24 HR) [Calan SR] 180 mg PO DAILY 02/28/16 [History] Aspirin [Lo-Dose Aspirin EC] 81 mg PO DAILY 05/05/18 [History] Furosemide [Lasix] 20 mg PO QPM 05/05/18 [History] Oxycodone HCl/Acetaminophen [Percocet 5-325 mg Tablet] 1 each PO Q4H PRN 05/05/18 [History] Pantoprazole Sodium [Protonix] 40 mg PO DAILY 05/05/18 [History] Pregabalin [Lyrica] 100 mg PO TID 05/05/18 [History] Allergies/Adverse Reactions: Allergy/AdvReac Type Severity Reaction Status Date / Time Amoxicillin AdvReac Vomiting Verified 05/05/18 11:05 meperidine [From Demerol] AdvReac Vomiting Verified 05/05/18 11:05 Sulfa (Sulfonamide AdvReac Vomiting Verified 05/05/18 11:05 Antibiotics) - Respiratory Orders Smoking Cessation: Smoking cessation has been advised. For more information, call the [place] Tobacco Quit Line at 4-614-HFPD-NOW. - Mobility Orders Ambulate - Rehabiliation Orders Rehab Potential: Good Rehab Orders: ROM Exercises, Evaluation for Physical Therapy, Evaluation for Occupational Therapy Other: Opsite dressing, leave intact until first post-operative visit. If dressing becomes >50% saturated, contact office, remove dressing and place appropriate dressing in its place. Do not allow for dressing to get wet. Zipline/[place] in place, plan to remove at post-operative day #14-16. Total Joint Precautions x 6 weeks Apply cold therapy wrap 3-6x/day for 20 minutes at a time. Encourage ambulation throughout the day Use Incentive spirometer 10x/hour. Elevate affected extremity above heart as tolerated. Brace: Wear hip abductor brace at night x 6 weeks. CERTIFICATION: I certify that the transfer of the above named patient to an Extended Care Facility is necessary for the continuing treatment of the diagnosis listed. The above information is true and accurate reflection of patient's current condi tion. Confidential - Redisclosure prohibited without a patient's written consent.
[2018-05-09] MEDS ORDERED: Furosemide 20 MG TABLET PO SCH (18:00)
[2018-05-09] MEDS: Clindamycin 900 MG/50 ML 900 MG/50 ML IV.SOLN IVPB SCH (19:50)
[2018-05-09] MEDS: Acetaminophen 325 MG TABLET PO PRN (19:56)
[2018-05-10] MEDS: OXYCODONE Oral CONC 10 MG/0.5 ML ORAL.SYG SL PRN ×3 (04:45→21:37)
[2018-05-10] MEDS: Clindamycin 900 MG/50 ML 900 MG/50 ML IV.SOLN IVPB SCH (04:45)
[2018-05-10 05:56] LABS: Hemoglobin 11.1 g/dL (11.5-15.4)
[2018-05-10 06:19] LABS: BUN/Creatinine Ratio 19 (6-26); Blood Urea Nitrogen 11 mg/dL (8-23); Calcium 8.4 mg/dL (8.6-10.3); Carbon Dioxide 25 mEq/L (23-29); Chloride 103 mEq/L (98-107); Glucose 122 mg/dL (70-105); Osmolality,Calculated 279 (280-300); Potassium 3.6 mEq/L (3.5-5.1); Sodium 134 mEq/L (136-145); eGFR For Non-African Americans > 60 (> 60)
[2018-05-10] MEDS: *HR* Heparin 5,000 UNIT/ML VIAL SQ SCH ×2 (06:34→16:12)
[2018-05-10] MEDS: Pregabalin 50 MG CAPSULE PO SCH ×3 (08:27→21:36)
[2018-05-10] MEDS: Verapamil ER (24 HR) 180 MG TABLET.ER PO SCH (08:27)
[2018-05-10] MEDS: Ascorbic Acid 500 MG TABLET PO SCH ×2 (08:28→16:12)
[2018-05-10] MEDS: Cyanocobalamin (B-12) 1,000 MCG TABLET PO SCH (08:28)
[2018-05-10] MEDS: *HR* LORazepam 1 MG TABLET PO SCH ×3 (08:28→21:55)
[2018-05-10] MEDS: Aspirin Enteric Coated 81 MG Tablet PO SCH (08:28)
[2018-05-10] MEDS: Multivit/Ca/Min/Fe/FA 1 TAB TABLET PO SCH (08:28)
[2018-05-10] MEDS: Isosorbide MONOnitrate (24 HR) 30 MG TAB.ER.24H PO SCH (08:29)
[2018-05-10] MEDS: FLUoxetine 20 MG CAPSULE PO SCH ×2 (08:29→21:36)
[2018-05-10] MEDS ORDERED: Furosemide 20 MG TABLET PO SCH (09:00)
--- NOTE | 2018-05-10 10:35 | Orthopedics Progress Note ---
Date of Encounter: 05/10/18 Time of Encounter: 10:35 Subjective Interval history: Patient was seen this morning doing well without complaints. Afebrile vital signs stable. Operative extremity: Neurovascularly intact Dressing clean dry and intact Calves nontender Assessment and plan: Continue with postoperative care Hematocrit 34 Objective Vital signs: Vital Signs Temp Pulse Resp BP Pulse Ox 05/10/18 06:39 99.0 F 81 18 121/63 95 05/10/18 04:04 97.7 F 65 16 120/82 95 05/10/18 00:11 97.5 F L 65 17 119/80 95 05/09/18 18:52 97.9 F 71 16 119/71 97 05/09/18 18:00 97.9 F 69 17 115/67 96 05/09/18 17:00 97.8 F 72 18 128/72 99 05/09/18 16:30 97.7 F 67 20 113/58 98 05/09/18 16:00 97.7 F 68 21 119/73 98 05/09/18 15:50 98.0 F 68 16 129/81 97 05/09/18 15:40 98.6 F 64 18 129/81 98 05/09/18 15:30 68 18 141/73 98 05/09/18 15:20 98.1 F 64 18 121/70 99 05/09/18 15:10 63 20 112/93 93 05/09/18 15:00 98.0 F 67 22 110/20 96 05/09/18 14:50 65 22 110/20 96 05/09/18 14:40 97.6 F 68 22 120/75 98 05/09/18 14:30 68 22 122/73 96 05/09/18 14:20 98.0 F 64 22 115/63 96 05/09/18 14:10 67 20 124/76 97 05/09/18 14:00 98.1 F 66 22 124/76 98 05/09/18 13:50 70 20 120/72 98 05/09/18 13:40 98.0 F 69 16 116/66 95 Intake and Output 05/09/18 05/10/18 05/10/18 23:59 07:59 15:59 Intake Total 50 / 50 240 / 240 Output Total 400 / 400 Balance -350 / -350 240 / 240 Intake: IV Fluids 50 / 50 Cleocin Premix 900 MG/50 ML 900 50 / 50 mg In 50 ml @ 50 mls/hr IVPB Q8H [facility] Rx#:[id number] Oral 240 / 240 Output: Urine 400 / 400 Other: Meal Breakfast Percent of Meal Consumed 95% # Voids 1 # Urine Diapers 1 Weight 66 kg Patient Weight 05/10/18 23:59 Weight 66 kg - Labs CBC & BMP: 05/10/18 05:19 05/10/18 05:19 Labs: Abnormal lab results WBC 4.2 K/mcL (4.3-11.1) L 05/09/18 04:14 Hgb 11.1 g/dL (11.5-15.4) L 05/10/18 05:19 Hct 34.0 % (35.3-44.9) L 05/10/18 05:19 RDW 15.5 % (11.5-14.5) H 05/09/18 04:14 Sodium 134 mEq/L (136-145) L 05/10/18 05:19 Creatinine 0.57 mg/dL (0.60-1.20) L 05/10/18 05:19 Glucose 122 mg/dL (70-105) H 05/10/18 05:19 Calculated Osmolality 279 (280-300) L 05/10/18 05:19 Calcium 8.4 mg/dL (8.6-10.3) L 05/10/18 05:19 Consult Discharge Plan - Plan Referrals: Sharifa Hutton DO [Primary Care Provider] -
--- NOTE | 2018-05-10 11:56 | Event Note ---
Date of Encounter: 05/10/18 Time of Encounter: 11:54 PCR - POD#.1 - Left THR 05/10/18 - Patient seen at bedside, without complaints. A&O x 3 Slightly elevated tep 99 since early AM - encouraged IS and hydration; vital signs otherwise stable. Hypotensive x 1; asymptomatic. Labs reviewed. H/H - stable, asymptomatic Pain control: adequate Participating in PT. All questions and concerns addressed. Educated on use of incentive spirometer. Encouraged ambulation and proper hydration. Patient educated on post-operative restrictions and post-operative care. Assessment and plan: Continue with postoperative care Discharge plan: ECF - when approved, stable for discharge from orthopedic standpoint Hip Continuity: Opsite dressing, leave intact until first post-operative visit. If dressing becomes >50% saturated, contact office, remove dressing and place appropriate dressing in its place. Do not allow for dressing to get wet. Zipline/[place] in place, plan to remove at post-operative day #14-16. Total Joint Precautions x 6 weeks Apply cold therapy wrap 3-6x/day for 20 minutes at a time. Encourage ambulation throughout the day Use Incentive spirometer 10x/hour. Elevate affected extremity above heart as tolerated. Brace: Wear hip abductor brace at night x 6 weeks. Vital Signs Temp Pulse Resp BP Pulse Ox 05/10/18 10:48 99.6 F 80 16 93/55 98 05/10/18 06:39 99.0 F 81 18 121/63 95 05/10/18 04:04 97.7 F 65 16 120/82 95 05/10/18 00:11 97.5 F L 65 17 119/80 95 05/09/18 18:52 97.9 F 71 16 119/71 97 05/09/18 18:00 97.9 F 69 17 115/67 96 05/09/18 17:00 97.8 F 72 18 128/72 99 05/09/18 16:30 97.7 F 67 20 113/58 98 05/09/18 16:00 97.7 F 68 21 119/73 98 05/09/18 15:50 98.0 F 68 16 129/81 97 05/09/18 15:40 98.6 F 64 18 129/81 98 05/09/18 15:30 68 18 141/73 98 05/09/18 15:20 98.1 F 64 18 121/70 99 05/09/18 15:10 63 20 112/93 93 05/09/18 15:00 98.0 F 67 22 110/20 96 05/09/18 14:50 65 22 110/20 96 05/09/18 14:40 97.6 F 68 22 120/75 98 05/09/18 14:30 68 22 122/73 96 05/09/18 14:20 98.0 F 64 22 115/63 96 05/09/18 14:10 67 20 124/76 97 05/09/18 14:00 98.1 F 66 22 124/76 98 05/09/18 13:50 70 20 120/72 98 05/09/18 13:40 98.0 F 69 16 116/66 95 Intake and Output 05/09/18 05/10/18 05/10/18 23:59 07:59 15:59 Intake Total 50 / 50 240 / 240 Output Total 400 / 400 Balance -350 / -350 240 / 240 Intake: IV Fluids 50 / 50 Cleocin Premix 900 MG/50 ML 900 50 / 50 mg In 50 ml @ 50 mls/hr IVPB Q8H [facility] Rx#:[id number] Oral 240 / 240 Output: Urine 400 / 400 Other: Meal Breakfast Percent of Meal Consumed 95% # Voids 1 1 # Urine Diapers 1 Weight 66 kg Patient Weight 05/10/18 23:59 Weight 66 kg Short CBC 05/10/18 05/09/18 Range/Units 05:19 14:15 Hgb 11.1 L 10.7 L (11.5-15.4) g/dL Hct 34.0 L 33.6 L (35.3-44.9) % BMP 05/10/18 Range/Units 05:19 Sodium 134 L (136-145) mEq/L Potassium 3.6 (3.5-5.1) mEq/L Chloride 103 (98-107) mEq/L Carbon Dioxide 25 (23-29) mEq/L BUN 11 (8-23) mg/dL Creatinine 0.57 L (0.60-1.20) mg/dL Glucose 122 H (70-105) mg/dL Calcium 8.4 L (8.6-10.3) mg/dL
[2018-05-10] MEDS ORDERED: 0.9 % Sodium Chloride 500 ML IVC ONE (13:07)
--- NOTE | 2018-05-10 15:56 | Internal Med Progress Note ---
Hospitalist Progress Note - Encounter Date of Encounter: 05/10/18 Time of Encounter: 15:52 - Subjective Interval History: pt resting in bed, c/o back and left hip pain. No fever, chills, or night sweats. - Exam Vitals: Temp Pulse Resp BP Pulse Ox 98.9 F 87 16 103/64 96 05/10/18 14:47 05/10/18 14:47 05/10/18 14:47 05/10/18 14:47 05/10/18 14:47 Exam: PHYSICAL EXAMINATION: GENERAL APPEARANCE: The patient is alert, oriented and in no acute distress. HEENT: Head is normocephalic. The sinuses are nontender. Pupils are equal and reactive. The nares are patent. Oropharynx clear without lesions. NECK: Supple without lymphadenopathy. HEART: Regular rate and rhythm. LUNGS: No crackles or wheezes are heard. ABDOMEN: Soft, nontender, nondistended with good bowel sounds heard. Inguinal area is normal. EXTREMITIES: Without cyanosis, clubbing or edema. NEUROLOGICAL: Gross nonfocal. SKIN: Warm and dry without any rash. - Assessment and Plan (1) Left hip pain Current Visit: Yes Status: Acute Assessment and Plan: The patient had left hip pain after fall on left hip 3 days back and it is gradually getting worse. failed conservative treatment, left hip replacement on 05/09. Doing ok, continue ambulating in room. (2) Osteoarthritis Current Visit: No Status: Chronic Assessment and Plan: She is chronic patient patient of low back pain with degenerative disc disease. CT thoracic and lumbar spine: No acute abnormality in the thoracic or lumbar spine., Status post L2-L5 spinal fusion. Grade 1 anterolisthesis of L4 on L5.,Moderate L5-S1 degenerative disc disease. Mild degenerative disc disease ,throughout the thoracic spine and lumbar spine. continue symptomatic and supportive care. Cardio risk evaluation for surgery completed today, intermediate risk due to Hx of CAD. total left hip replacement on 05/09. doing ok today, plan dc tomorrow. (3) Coronary artery disease Current Visit: No Status: Chronic Assessment and Plan: Pt has no chest pain, BP controlled, cardiology consulted for pre-op risk evaluation. intermediate risk due to Hx of CAD. (4) History of DVT (deep vein thrombosis) Current Visit: No Status: Chronic Assessment and Plan: on SQ heparin for DVT prophylaxis. (5) Hyperlipidemia Current Visit: No Status: Chronic Assessment and Plan: Resume crestor (6) Hypertension Current Visit: No Status: Chronic Assessment and Plan: Stable with current home medications Coreg, Hydralazine PO, Imdur, Verapamil ER (7) Sciatic leg pain Current Visit: No Status: Chronic Assessment and Plan: She does have s/p L2-L5 spinal fusion her low back pain also concerning for sciatic pain reviewed her CT of the lumbar spine which showed moderate L5-S1 DJD need to follow up with Dr. Cruz from [place] as an out pt DVT Prophylaxis: Heparin sq. - Time Spent with Patient Total time spent is greater than 50% in coordination of care (as documented) at patient's floor/unit and/or counseling patient: Greater than 35 minutes Plan of Care Discussed with: patient Internal Medicine: Result - Labs CBC & Chem 7: 05/10/18 05:19 05/10/18 05:19 Labs: Short CBC 05/10/18 Range/Units 05:19 Hgb 11.1 L (11.5-15.4) g/dL Hct 34.0 L (35.3-44.9) % BMP 05/10/18 05:19 Sodium 134 L Potassium 3.6 Chloride 103 Carbon Dioxide 25 BUN 11 Creatinine 0.57 L Glucose 122 H Calcium 8.4 L - ABG Interpretation ABG results: PT/INR, D-dimer PT 11.5 Seconds (9.4-12.1) 05/07/18 17:39 Consult Discharge Plan - Plan Referrals: Sharifa Hutton DO [Primary Care Provider] - (2) Osteoarthritis Qualifiers: Osteoarthritis location: hip Osteoarthritis type: primary Laterality: right Qualified Code(s): M16.11 - Unilateral primary osteoarthritis, right hip (3) Coronary artery disease Qualifiers: Coronary Disease-Associated Artery/Lesion type: [place] artery [place] vs. transplanted heart: [place] heart Associated angina: without angina Qualified Code(s): I25.10 - Atherosclerotic heart disease of [place] coronary artery without angina pectoris (5) Hyperlipidemia Qualifiers: Hyperlipidemia type: unspecified Qualified Code(s): E78.5 - Hyperlipidemia, unspecified (6) Hypertension Qualifiers: Hypertension type: essential hypertension Qualified Code(s): I10 - Essential (primary) hypertension
[2018-05-11] MEDS: Acetaminophen 325 MG TABLET PO PRN ×2 (02:34→08:19)
[2018-05-11 05:03] LABS: Hematocrit 29.8 % (35.3-44.9); Hemoglobin 9.9 g/dL (11.5-15.4)
[2018-05-11 05:30] LABS: BUN/Creatinine Ratio 18 (6-26); Blood Urea Nitrogen 11 mg/dL (8-23); Calcium 8.3 mg/dL (8.6-10.3); Carbon Dioxide 27 mEq/L (23-29); Chloride 104 mEq/L (98-107); Glucose 137 mg/dL (70-105); Osmolality,Calculated 286 (280-300); Potassium 3.5 mEq/L (3.5-5.1); Sodium 137 mEq/L (136-145); eGFR For Non-African Americans > 60 (> 60)
[2018-05-11] MEDS: *HR* Heparin 5,000 UNIT/ML VIAL SQ SCH (06:30)
[2018-05-11] MEDS: Ascorbic Acid 500 MG TABLET PO SCH (08:20)
[2018-05-11] MEDS: *HR* LORazepam 1 MG TABLET PO SCH ×2 (08:20→14:40)
[2018-05-11] MEDS: Aspirin Enteric Coated 81 MG Tablet PO SCH (08:21)
[2018-05-11] MEDS: Multivit/Ca/Min/Fe/FA 1 TAB TABLET PO SCH (08:21)
[2018-05-11] MEDS: Cyanocobalamin (B-12) 1,000 MCG TABLET PO SCH (08:21)
--- NOTE | 2018-05-11 08:41 | Orthopedics Progress Note ---
Date of Encounter: 05/11/18 Time of Encounter: 08:38 Subjective Interval history: Patient was seen this morning Significant anxiety Expected pain to left hip Afebrile Tachycardia from anxiety Operative extremity: Neurovascularly intact Dressing clean dry and intact Calves nontender Assessment and plan: -Continue with postoperative care; -Orthopedically stable. -Anxiety medication per hospitalist Objective Vital signs: Vital Signs Temp Pulse Resp BP Pulse Ox 05/11/18 07:51 98.1 F 168 97 05/11/18 04:48 98.1 F 96 17 122/72 92 05/10/18 23:17 98.7 F 99 16 120/72 93 05/10/18 19:08 98.9 F 102 17 119/73 92 05/10/18 14:47 98.9 F 87 16 103/64 96 05/10/18 13:40 95/60 05/10/18 11:58 93/51 05/10/18 10:48 99.6 F 80 16 93/55 98 Intake and Output 05/10/18 05/11/18 05/11/18 23:59 07:59 15:59 Intake Total 200 / 200 Output Total 100 / 100 600 / 600 Balance 100 / 100 -600 / -600 Intake: Oral 200 / 200 Output: Urine 100 / 100 600 / 600 Other: # Voids 1 Weight 66.1 kg Patient Weight 05/11/18 23:59 Weight 66.1 kg - Labs CBC & BMP: 05/11/18 04:40 05/11/18 04:40 Labs: Abnormal lab results WBC 4.2 K/mcL (4.3-11.1) L 05/09/18 04:14 Hgb 9.9 g/dL (11.5-15.4) L 05/11/18 04:40 Hct 29.8 % (35.3-44.9) L 05/11/18 04:40 RDW 15.5 % (11.5-14.5) H 05/09/18 04:14 Glucose 137 mg/dL (70-105) H 05/11/18 04:40 Calcium 8.3 mg/dL (8.6-10.3) L 05/11/18 04:40 Consult Discharge Plan - Plan Referrals: Sahrifa Hutton DO [Primary Care Provider] -
--- NOTE | 2018-05-11 10:12 | Discharge Summary ---
- NOTES TO OUTPATIENT PROVIDER Notes to Outpatient Provider: f/u with ortho within 2 weeks. f/u with PCP within a week. Orders not resulted at time of discharge: Pending orders 05/09/18 13:49 Surgical Pathology [PTH] Routine Date of Encounter: 05/11/18 Time of Encounter: 10:04 - Discharge Diagnosis (1) Left hip pain Priority: Primary Status: Acute (2) Osteoarthritis Priority: Primary Status: Chronic Qualifiers: Osteoarthritis location: hip Osteoarthritis type: primary Laterality: right Qualified Code(s): M16.11 - Unilateral primary osteoarthritis, right hip (3) Coronary artery disease Priority: Secondary Status: Chronic Qualifiers: Coronary Disease-Associated Artery/Lesion type: [place] artery [place] vs. transplanted heart: [place] heart Associated angina: without angina Qualified Code(s): I25.10 - Atherosclerotic heart disease of [place] coronary artery without angina pectoris (4) History of DVT (deep vein thrombosis) Priority: Secondary Status: Chronic (5) Hyperlipidemia Priority: Secondary Status: Chronic Qualifiers: Hyperlipidemia type: unspecified Qualified Code(s): E78.5 - Hyperlipidemia, unspecified (6) Hypertension Priority: Secondary Status: Chronic Qualifiers: Hypertension type: essential hypertension Qualified Code(s): I10 - Essential (primary) hypertension (7) Sciatic leg pain Priority: Secondary Status: Chronic Hospital course: Ms. Garcia is a 72 year old female with history of chronic back pain arthritis, CAD, h/o DVT, renal disease presents to the emergency with left hip pain. Patient felt approximate 3 days ago has been seen every day since the fall here in the emergency department. Patient presented for third straight day for same pain, which is uncontrolled. CT and x-ray of left hip, pelvis, lumbar spine have been negative for acute fracture or acute injury. Pain described as 10 out of 10 on admission, and after getting pain medication in the ED, rated as 4/10. She denied LOC or hitting head. She denies fevers/chills, n/v, SOB, CP, changes in bowel/bladder, numbness/tingling of extremities. PT/OT have been working with patient on a daily basis since admission, she also started on pain meds, however, she was still suffering from severe back and left hip pain. Ortho was consulted. Since she has exhausted all the conservative treatment, total left hip replacement was performed on 05/09/2018. Pt recovered well after surgery, although she still requests pain meds. After discussed with all the specialties involved in the care of pt, we decided to transfer pt to rehab center today. She will continue her care there including DVT prophylaxis with Heparin sq. She will f/u with ortho and PCP as scheduled. Discharge discussed with: patient Time spent discussing smoking cessation with patient: more than 10 minutes - Time Spent with Patient Total time spent providing and/or coordinating discharge services: Greater than 30 minutes - Discharge Medications Prescriptions: Oxycodone HCl/Acetaminophen [Percocet 5-325 mg Tablet] 1 each PO Q4H PRN 2 Days #10 tablet PRN Reason: Pain Home Medications: Carvedilol [Coreg] 12.5 mg PO BID 06/26/15 [History] Isosorbide MONOnitrate (24 HR) [Imdur] 30 mg PO DAILY 06/26/15 [History] LORazepam [Ativan] 1 mg PO TID 06/26/15 [History] Rosuvastatin [Crestor] 40 mg PO HS 06/26/15 [History] Calcitriol [Rocaltrol] 0.25 mcg PO BID 02/28/16 [History] Cyanocobalamin (Vitamin B-12) [Vitamin B12] 1,000 mcg PO DAILY 02/28/16 [History] Cyclobenzaprine [Flexeril] 10 mg PO TID PRN 02/28/16 [History] Eletriptan HBr [Relpax] 20 mg PO AD PRN 02/28/16 [History] FLUoxetine HCl [Prozac] 20 mg PO BID 02/28/16 [History] Furosemide [Lasix] 40 mg PO QAM 02/28/16 [History] Hydralazine HCl 50 mg PO HS 02/28/16 [History] Levothyroxine [Synthroid] 50 mcg PO QAM 02/28/16 [History] Potassium Chloride [Klor-Con] 20 meq PO QPM 02/28/16 [History] Verapamil ER (24 HR) [Calan SR] 180 mg PO DAILY 02/28/16 [History] Aspirin [Lo-Dose Aspirin EC] 81 mg PO DAILY 05/05/18 [History] Furosemide [Lasix] 20 mg PO QPM 05/05/18 [History] Pantoprazole Sodium [Protonix] 40 mg PO DAILY 05/05/18 [History] Pregabalin [Lyrica] 100 mg PO TID 05/05/18 [History] Acetaminophen [Tylenol] 650 mg PO Q6HR PRN tablet 05/11/18 [Rx] Ascorbic Acid [Vitamin C] 500 mg PO BIDWM tablet 05/11/18 [Rx] Docusate [Colace] 100 mg PO BID capsule 05/11/18 [Rx] Ferrous Sulfate 325 mg PO BIDWM tablet 05/11/18 [Rx] Heparin 5,000 unit SQ Q12HCO vial 05/11/18 [Rx] MOM Conc [MILK OF MAGNESIA conc] 5 ml PO HS PRN ud.liq 05/11/18 [Rx] MOM Conc [MILK OF MAGNESIA conc] 10 ml PO DAILY PRN ud.liq 05/11/18 [Rx] Multivit/Ca/Min/Fe/FA [Thera M Plus] 1 tab PO DAILY tablet 05/11/18 [Rx] Naloxone [Narcan] 0.4 mg IVP Q2MIN PRN inj 05/11/18 [Rx] Naloxone [Narcan] 0.4 mg IVP Q2MIN PRN inj 05/11/18 [Rx] Oxycodone HCl/Acetaminophen [Percocet 5-325 mg Tablet] 1 each PO Q4H PRN 2 Days #10 tablet 05/11/18 [Rx] Allergies/Adverse Reactions: Allergy/AdvReac Type Severity Reaction Status Date / Time Amoxicillin AdvReac Vomiting Verified 05/05/18 11:05 meperidine [From Demerol] AdvReac Vomiting Verified 05/05/18 11:05 Sulfa (Sulfonamide AdvReac Vomiting Verified 05/05/18 11:05 Antibiotics) Date of admission: 05/06/18 13:09 Primary care physician: Sharifa Hutton DO Consults: 05/05/18 17:13 Consult to Occupational Therapy [CONS] Routine Comment: Evaluate, develop and implement POC Reason for Consult: Evaluate, develop and implement POC Does patient have active BEDREST order?: No Is patient medically & hemodynamically stable?: Yes Consult to Physical Therapy [CONS] Routine Comment: Evaluate, develop and implement POC Reason for Consult: Disposition planning. Does patient have active BEDREST order?: No Is patient medically & hemodynamically stable?: Yes 05/06/18 10:28 Consult to Orthopedic Surgery [CONS] Routine Consulting Provider: [facility] Reason for Consult: left hip pain Time Notified: 10:28 Call Completed: Yes 05/08/18 10:23 Consult to Cardiology [CONS] Routine Comment: Consulting Provider: Amada Dunham Reason for Consult: preop clear Call Completed: Yes 05/09/18 16:04 Consult to Nurse Navigator [CONS] Routine Comment: ortho navigator Consult to Occupational Therapy [CONS] Routine Comment: Evaluate, develop and implement POC Reason for Consult: total hip replacement Does patient have active BEDREST order?: No Is patient medically & hemodynamically stable?: Yes Consult to Physical Therapy [CONS] Routine Comment: Evaluate, develop and implement POC Reason for Consult: total hip replacement Does patient have active BEDREST order?: No Is patient medically & hemodynamically stable?: Yes Consult to [place] [CONS] Routine Reason for SW Consult: post op joint replacement RT Post Op Consult [CONS] Routine Anticipated date of discharge: 05/11/18 - Constitutional Vitals: Temp Pulse Resp BP Pulse Ox 98.1 F 168 17 122/72 97 05/11/18 07:51 05/11/18 07:51 05/11/18 04:48 05/11/18 04:48 05/11/18 07:51 General appearance: Present: cooperative, A&O X 3, answers questions appropriately Exam: PHYSICAL EXAMINATION: GENERAL APPEARANCE: The patient is alert, oriented and in no acute distress. HEENT: Head is normocephalic. The sinuses are nontender. Pupils are equal and reactive. The nares are patent. Oropharynx clear without lesions. NECK: Supple without lymphadenopathy. HEART: Regular rate and rhythm. LUNGS: No crackles or wheezes are heard. ABDOMEN: Soft, nontender, nondistended with good bowel sounds heard. Inguinal area is normal. EXTREMITIES: Without cyanosis, clubbing or edema. NEUROLOGICAL: Gross nonfocal. SKIN: Warm and dry without any rash. - Patient Status Disposition: Transfer SNF Condition: Fair Functional capacity at discharge: uses cane/walker Overall status at discharge: patient is progressing back to baseline - Discharge Instructions Follow Up With: Sharifa Hutton DO [Primary Care Provider] - - Diet and Activity Activity: increase activity as tolerated Diet: advance to your usual diet
--- NOTE | 2018-05-11 10:56 | Physician Discharge Referral ---
ExtendedCare Referral Info Provider in Charge after Transfer: Other Institutional Level of Care: Skilled - Diagnosis (1) Left hip pain Priority: Primary Status: Acute (2) Status post left hip replacement Priority: Primary Status: Acute (3) Osteoarthritis Priority: Secondary Status: Chronic (4) Coronary artery disease Priority: Secondary Status: Chronic (5) History of DVT (deep vein thrombosis) Priority: Secondary Status: Chronic (6) Hyperlipidemia Priority: Secondary Status: Chronic (7) Hypertension Priority: Secondary Status: Chronic (8) Sciatic leg pain Priority: Secondary Status: Chronic Prognosis: Fair Aware of Diagnosis: Patient, Family Aware of Prognosis: Patient, Family - Transfer Medications Prescriptions: Oxycodone HCl/Acetaminophen [Percocet 5-325 mg Tablet] 1 each PO Q4H PRN 2 Days #10 tablet PRN Reason: Pain Home Medications: Carvedilol [Coreg] 12.5 mg PO BID 06/26/15 [History] Isosorbide MONOnitrate (24 HR) [Imdur] 30 mg PO DAILY 06/26/15 [History] LORazepam [Ativan] 1 mg PO TID 06/26/15 [History] Rosuvastatin [Crestor] 40 mg PO HS 06/26/15 [History] Calcitriol [Rocaltrol] 0.25 mcg PO BID 02/28/16 [History] Cyanocobalamin (Vitamin B-12) [Vitamin B12] 1,000 mcg PO DAILY 02/28/16 [History] Cyclobenzaprine [Flexeril] 10 mg PO TID PRN 02/28/16 [History] Eletriptan HBr [Relpax] 20 mg PO AD PRN 02/28/16 [History] FLUoxetine HCl [Prozac] 20 mg PO BID 02/28/16 [History] Furosemide [Lasix] 40 mg PO QAM 02/28/16 [History] Hydralazine HCl 50 mg PO HS 02/28/16 [History] Levothyroxine [Synthroid] 50 mcg PO QAM 02/28/16 [History] Potassium Chloride [Klor-Con] 20 meq PO QPM 02/28/16 [History] Verapamil ER (24 HR) [Calan SR] 180 mg PO DAILY 02/28/16 [History] Aspirin [Lo-Dose Aspirin EC] 81 mg PO DAILY 05/05/18 [History] Furosemide [Lasix] 20 mg PO QPM 05/05/18 [History] Pantoprazole Sodium [Protonix] 40 mg PO DAILY 05/05/18 [History] Pregabalin [Lyrica] 100 mg PO TID 05/05/18 [History] Acetaminophen [Tylenol] 650 mg PO Q6HR PRN tablet 05/11/18 [Rx] Ascorbic Acid [Vitamin C] 500 mg PO BIDWM tablet 05/11/18 [Rx] Docusate [Colace] 100 mg PO BID capsule 05/11/18 [Rx] Ferrous Sulfate 325 mg PO BIDWM tablet 05/11/18 [Rx] Heparin 5,000 unit SQ Q12HCO vial 05/11/18 [Rx] MOM Conc [MILK OF MAGNESIA conc] 5 ml PO HS PRN ud.liq 05/11/18 [Rx] MOM Conc [MILK OF MAGNESIA conc] 10 ml PO DAILY PRN ud.liq 05/11/18 [Rx] Multivit/Ca/Min/Fe/FA [Thera M Plus] 1 tab PO DAILY tablet 05/11/18 [Rx] Naloxone [Narcan] 0.4 mg IVP Q2MIN PRN inj 05/11/18 [Rx] Naloxone [Narcan] 0.4 mg IVP Q2MIN PRN inj 05/11/18 [Rx] Oxycodone HCl/Acetaminophen [Percocet 5-325 mg Tablet] 1 each PO Q4H PRN 2 Days #10 tablet 05/11/18 [Rx] Allergies/Adverse Reactions: Allergy/AdvReac Type Severity Reaction Status Date / Time Amoxicillin AdvReac Vomiting Verified 05/05/18 11:05 meperidine [From Demerol] AdvReac Vomiting Verified 05/05/18 11:05 Sulfa (Sulfonamide AdvReac Vomiting Verified 05/05/18 11:05 Antibiotics) - Respiratory Orders Smoking Cessation: Smoking cessation has been advised. For more information, call the [place] Tobacco Quit Line at 1-536-IYHY-NOW. - Ancillary Orders May use pressure relief devices daily prn - Advance Directives Code Status: Full Code - Mobility Orders Ambulate - Rehabiliation Orders Rehab Orders: ROM Exercises, Evaluation for Physical Therapy, Evaluation for Occupational Therapy - Treatments Skin tear care topically daily PRN per policy - Diet Orders Cardiac CERTIFICATION: I certify that the transfer of the above named patient to an Extended Care Facility is necessary for the continuing treatment of the diagnosis listed. The above information is true and accurate reflection of patient's current condition. Confidential - Redisclosure prohibited without a patient's written consent.
[2018-05-11] MEDS: FLUoxetine 20 MG CAPSULE PO SCH (11:02)
[2018-05-11] MEDS: Verapamil ER (24 HR) 180 MG TABLET.ER PO SCH (11:02)
[2018-05-11] MEDS: Pregabalin 50 MG CAPSULE PO SCH ×2 (11:02→14:41)
[2018-05-11] MEDS: Isosorbide MONOnitrate (24 HR) 30 MG TAB.ER.24H PO SCH (11:02)
[2018-05-11] MEDS ORDERED: Acetaminophen IV 1,000 MG/100 ML INFUS..BTL IVPB ONE (11:20)
[2018-05-11] MEDS ORDERED: 0.9 % Sodium Chloride 250 ML IVC ONE (11:45)
[2018-05-11] MEDS: OXYCODONE Oral CONC 10 MG/0.5 ML ORAL.SYG SL PRN (14:41)
[2018-05-11 15:48] VITALS: BP 103/68
== END 2018-05-11 16:46 | DRG 470 ==
LOC: 3BNU 10:58 → EMEROOARM 10:58 → SUATTDRO 14:54 → 3BNU 15:31 → 3NENU 05-07 18:23
PROVIDERS: ADMIT Internal Medicine; ATTEND Family Medicine

== ENCOUNTER 2019-02-12 08:17 | Observation (INO) ==
[2019-02-12] MEDS ORDERED: 0.9 % Sodium Chloride 1,000 ML ONE (08:25)
[2019-02-12] MEDS ORDERED: Aspirin 81 MG TAB.CHEW PO ONE (08:44)
[2019-02-12 09:16] LABS: Basophils % 0.2 %; Eosinophils # 0.1 K/mcL (0.0-0.6); Eosinophils % 3.2 %; Hematocrit 27.8 % (35.3-44.9); Hemoglobin 8.5 g/dL (11.5-15.4); Immature Granulocytes % 0.2 % (0-4); Lymphocytes # 0.5 K/mcL (0.6-4.6); Lymphocytes % 10.6 %; Mean Corpuscular HGB Conc 30.6 g/dL (31.6-35.5); Mean Corpuscular Hemoglobin 29.4 pg (28.0-33.3); Mean Corpuscular Volume 96.2 fL (83.0-100.0); Mean Platelet Volume 11.9 fL (9.4-12.4); Monocytes # 0.5 K/mcL (0.0-1.3); Monocytes % 11.2 %; Neutrophils # 3.3 K/mcL (1.6-8.9); Platelet Count 151 K/mcL (140-400); Red Blood Count 2.89 M/mcL (3.82-4.97); Segmented Neutrophils % 74.6 %; White Blood Count 4.4 K/mcL (4.3-11.1)
[2019-02-12 09:26] LABS: Prothrombin Time 11.8 Seconds (9.4-12.1)
[2019-02-12 09:29] LABS: Activated Partial Thrombo Time 39.7 Seconds (26.0-36.0)
[2019-02-12 09:36] LABS: Albumin 2.8 g/dL (3.5-5.7); Albumin/Globulin Ratio 1.2 (1.1-2.2); Bilirubin,Direct 0.1 mg/dL (0.0-0.2); Bilirubin,Indirect 0.4 mg/dL (0.0-1.2); Bilirubin,Total 0.5 mg/dL (0.3-1.0); Globulin 2.4 g/dL (2.4-3.5); Total Protein 5.2 g/dL (6.4-8.9)
[2019-02-12 09:38] LABS: BUN/Creatinine Ratio 35 (6-26); Blood Urea Nitrogen 23 mg/dL (8-23); Calcium 7.3 mg/dL (8.6-10.3); Carbon Dioxide 21 mEq/L (23-29); Chloride 114 mEq/L (98-107); Glucose 107 mg/dL (70-105); Osmolality,Calculated 302 (280-300); Potassium 3.3 mEq/L (3.5-5.1); Sodium 144 mEq/L (136-145); eGFR For African Americans > 60 (> 60); eGFR For Non-African Americans > 60 (> 60)
[2019-02-12 09:39] LABS: Troponin I < 0.03 ng/mL (< 0.04)
[2019-02-12 10:05] LABS: Bilirubin,Urine Negative (Negative); Blood,Urine Negative (Negative); Clarity,Urine Clear (Clear); Color,Urine Yellow (Yellow); Glucose,Urine (UA) Normal (Normal); Ketones,Urine Negative (Negative); Leukocyte Esterase,Urine Large (Negative); Nitrite,Urine Positive (Negative); Protein,Urine Negative (Neg-Trace); Specific Gravity,Urine 1.008 (1.010-1.025); Urobilinogen,Urine Normal (Normal)
[2019-02-12 10:06] LABS: Bacteria,Urine Many per hpf (None-Few); Hyaline Casts,Urine None Seen per lpf (None-Few); RBC,Urine 0-3 per hpf (0-3); Squamous Epithelial Cell,Urine Many per lpf (None-Few); WBC,Urine 15-30 per hpf (0-3)
[2019-02-12] MEDS ORDERED: Calcium Gluconate 2,000 MG in 0.9 % Sodium Chloride 100 ML IVPB ONE (10:10)
[2019-02-12] MEDS ORDERED: Isovue-370 500 ML BOTTLE IVP ONE ×2 (11:04→11:24)
[2019-02-12] MEDS: Calcium Gluconate 1gm/50mL 1 GM/50 ML BAG IVPB SCH (11:26)
[2019-02-12] MEDS ORDERED: Calcium Gluconate 1gm/50mL 1 GM/50 ML BAG IVPB ONE (12:34)
--- NOTE | 2019-02-12 13:03 | Emergency Department Note ---
Disposition Clinical Impression: Tachycardia Disposition: Admitted As Inpatient Condition: Good Time of Disposition: 13:42 General Adult HPI - General Chief complaint: ED Chest Pain Stated complaint: chest pain Time Seen by Provider: 02/12/19 08:37 Source: patient, EMS Mode of arrival: EMS Limitations: no limitations Nursing Notes Reviewed: Yes Vital Signs Reviewed: Yes - History of Present Illness HPI Narrative: 73-year-old female with a past medical history of chronic pain, hypertension, hyperlipidemia, left hip replacement, intermittent SVT. Patient initially presents with a heart rate in the upper 140s and states that her heart started to beat very fast this morning at 6 AM. She notes that usually her heart will go back into rhythm but it was not doing that this time so she called EMS. Patient also reports a history of falling onto her left side onto the rails of her bed approximately one week ago. Patient was seen by her primary care physician who did some x-rays and ruled out rib fractures or problems with her hip and told her to take it easy over the next few days. Valsalva maneuver with empty syringe as well as leg raising were attempted, patient's heart went back into sinus rhythm after her legs were raised and held for approximately 1 minute. Patient appears very anxious and is at times tearful as she explains her symptoms. Pain Scale: 7 - Related Data Home Medications Medication Instructions Recorded Confirmed Rosuvastatin [Crestor] 40 mg PO HS 06/26/15 12/05/18 Aspirin [Lo-Dose Aspirin EC] 81 mg PO DAILY 05/05/18 02/12/19 Pantoprazole Sodium [Protonix] 40 mg PO BID 05/05/18 02/12/19 Docusate [Colace] 100 mg PO BID PRN 05/21/18 12/05/18 Buspirone HCl [Buspar] 10 mg PO TID 12/05/18 02/12/19 Carvedilol 12.5 mg PO BIDWM 12/05/18 02/12/19 FLUoxetine HCl [Fluoxetine HCl] 40 mg PO BID 12/05/18 12/05/18 Furosemide [Lasix] 20 mg PO QPM 12/05/18 02/12/19 Furosemide [Lasix] 40 mg PO QAM 12/05/18 02/12/19 Isosorbide MONOnitrate [Isosorbide 30 mg PO DAILY 12/05/18 02/12/19 Mononitrate ER] Levothyroxine Sodium 100 mcg PO 0630 12/05/18 02/12/19 OxyCODONE/APAP 5/325 [Percocet 1 each PO Q6H PRN 12/05/18 02/12/19 5/325 MG] Potassium Chloride [K-Tab ER] 20 meq PO DAILY 12/05/18 02/12/19 Pregabalin [Lyrica] 150 mg PO TID 12/05/18 02/12/19 Ranitidine HCl [Acid Community Relations Coordinator] 150 mg PO DAILY 12/05/18 02/12/19 Rivaroxaban [Xarelto] 20 mg PO QPM 12/05/18 12/05/18 Verapamil ER (24 HR) [Calan SR] 120 mg PO DAILY 12/05/18 02/12/19 Mirtazapine 7.5 mg PO HS 02/12/19 02/12/19 hydrOXYzine HCl [Hydroxyzine HCl] 25 mg PO PRN 02/12/19 02/12/19 Allergies Allergy/AdvReac Type Severity Reaction Status Date / Time Amoxicillin AdvReac Vomiting Verified 05/21/18 13:27 meperidine [From Demerol] AdvReac Vomiting Verified 05/21/18 13:27 Sulfa (Sulfonamide AdvReac Vomiting Verified 05/21/18 13:27 Antibiotics) Review of Systems: In addition to that documented in the HPI above, the additional ROS was obtained: Constitutional: Denies fevers or chills Eyes: Denies vision changes ENMT: Denies sore throat Reports rhinorrhea CV: Reports chest pain Resp: Reports SOB GI: Denies vomiting or diarrhea : Denies painful urination MSK: Reports falling onto her left flank last week and was seen by her PCP who did XR that did not show any broken ribs or problems with her hip Skin: Denies new rashes Neuro: Denies new numbness or tingling or weakness Endocrine: Denies unexpected weight loss Heme: Denies bleeding disorders Past Medical History - Past Medical History Attestation: Yes The following information was validated with the patient. Medical history: Reports: arthritis, coronary artery disease, DVT, hyperlipidemia, hypertension, migraine, renal disease, thyroid disease Surgical history: Reports: cholecystectomy, hysterectomy, orthopedic, other, other Psychiatric history: Reports: bipolar ACCOUNTS EXECUTIVE history: Reports: no ACCOUNTS EXECUTIVE history - Social History Smoking Status: Former smoker Smokeless Tobacco Status: No Alcohol use: Reports: none Drug use: Reports: none Physical Exam General: Appears anxious. Well developed, well nourished. Head: atraumatic, normocephalic. ENT: No conjunctival injection, no scleral icterus. PERRLA. EOMI. Oropharynx non- erythematous. mucous membranes moist. Neuro: No focal deficits, no speech deficit, no facial droop, mentating well. BUE/BLE Str 5/5. Reena UE/LE sensation intact. CN II-XII intact. Cerebellar testing with [id number] and [id number] intact. Pulm: Lungs CTAB A/P. No wheezes, rales, ronchi. Cardio: RRR no m/r/g. Chest not tender to palpation. Abd: Soft, non-distended. Normoactive bowel sounds. Non-tender to palpation. No guarding. Non rigid. Left flank bruising present. Extremities: Radial pulses 2+ reena, dorsalis pedis/posterior tibialis 2+ reena. No LE edema. No cyanosis, clubbing. Skin: warm, dry, intact. No rashes. Psych: Appropriate mood and affect. Answers questions appropriately. Cooperative with exam. - General Limitations: no limitations General appearance: alert, in no apparent distress Course Vital Signs Temperature 98.3 F 02/12/19 08:21 Pulse Rate 149 02/12/19 08:21 Respiratory Rate 24 02/12/19 08:21 Blood Pressure 92/62 02/12/19 08:21 O2 Sat by Pulse Oximetry 96 02/12/19 08:21 Temperature 98.0 F 02/12/19 15:06 Pulse Rate 65 02/12/19 15:06 Respiratory Rate 16 02/12/19 15:06 Blood Pressure 147/84 02/12/19 15:06 O2 Sat by Pulse Oximetry 97 02/12/19 15:06 Oxygen Delivery Oxygen Delivery Nasal Cannula Procedures - FAST Exam FAST Exam 1 Fluid in Morison's pouch: No Fluid in Splenorenal Junction: No Fluid around bladder, Transverse view: No Fluid around bladder, Sagittal view: No Fluid in Pericardial Sac: No Gross Wall Motion Abnormality: No Study normal for this patient: Yes Images saved for further review: Yes Medical Decision Making - MDM Narrative Medical decision making narrative: 73-year-old female that presents with concerns for rapid heart rate, Valsalva maneuvers put the patient back into sinus. Will order cardiac workup. Pt had a low Hg which was several points lower than her value from a few days ago. Will perform occult blood stool. Occult blood stool was negative. Will admit to hospitalist for further workup and treatment. Hospitalist requested Head CT, CT of Abd and Pelvis. FAST exam was performed by the medical student and supervised by me, and was negative, but hospitalist assisted on CT scan. CT scan was negative for acute intra-abdominal pathology. Patient was admitted to the hospitalist Dr. Vazquez who agreed to accept the patient to his service. Results of the workup including any imaging and/or labwork was shared with the patient at bedside. Patient was given an opportunity to ask questions at bedside and all of their concerns were addressed. Patient verbalized understanding and agreement with plan of care. Pt remained stable while in the department. - Medical Records Medical records reviewed: Yes I reviewed the patient's medical records. - Lab Data Lab results reviewed: Yes I reviewed the patient's lab results. Result diagrams: 02/12/19 09:03 02/12/19 09:03 Lab Results 02/12/19 02/12/19 02/12/19 Range/Units 09:03 09:03 09:03 WBC (4.3-11.1) K/mcL RBC (3.82-4.97) M/mcL Hgb (11.5-15.4) g/dL Hct (35.3-44.9) % MCV (83.0-100.0) fL MCH (28.0-33.3) pg MCHC (31.6-35.5) g/dL RDW (11.5-14.5) % Plt Count (140-400) K/mcL MPV (9.4-12.4) fL Immature Gran % (0-4) % Seg Neutrophils % % Lymphocytes % % Monocytes % % Eosinophils % % Basophils % % Neutrophils # (1.6-8.9) K/mcL Lymphocytes # (0.6-4.6) K/mcL Monocytes # (0.0-1.3) K/mcL Eosinophils # (0.0-0.6) K/mcL Basophils # (0.0-0.2) K/mcL PT 11.8 (9.4-12.1) Seconds INR 1.0 APTT 39.7 H (26.0-36.0) Seconds Sodium (136-145) mEq/L Potassium (3.5-5.1) mEq/L Chloride (98-107) mEq/L Carbon Dioxide (23-29) mEq/L BUN (8-23) mg/dL Creatinine (0.60-1.20) mg/dL Est GFR ( Amer) (> 60) Est GFR (Non-Af Amer) (> 60) BUN/Creatinine Ratio (6-26) Glucose (70-105) mg/dL Calculated Osmolality (280-300) Calcium (8.6-10.3) mg/dL Magnesium 1.9 (1.6-2.6) mg/dL Total Bilirubin 0.5 (0.3-1.0) mg/dL Direct Bilirubin 0.1 (0.0-0.2) mg/dL Indirect Bilirubin 0.4 (0.0-1.2) mg/dL AST 43 H (13-39) Units/L ALT 31 (7-52) Units/L Alkaline Phosphatase 137 H (34-104) Units/L Troponin I (< 0.04) ng/mL Serum Total Protein 5.2 L (6.4-8.9) g/dL Albumin 2.8 L (3.5-5.7) g/dL Globulin 2.4 (2.4-3.5) g/dL Albumin/Globulin Ratio 1.2 (1.1-2.2) Procalcitonin (0.00-0.15) ng/mL TSH (0.340-5.600) mcIU/mL Urine Color (Yellow) Urine Clarity (Clear) Urine pH (5.0-8.0) pH Units Ur Specific [place] (1.010-1.025) Urine Protein (Neg-Trace) mg/dL Urine Glucose (UA) (Normal) mg/dL Urine Ketones (Negative) mg/dL Urine Blood (Negative) Urine Nitrite (Negative) Urine Bilirubin (Negative) Urine Urobilinogen (Normal) mg/dL Ur Leukocyte Esterase (Negative) Urine Microscopic RBC (0-3) per hpf Urine Microscopic WBC (0-3) per hpf Ur Squamous Epith Cells (None-Few) per lpf Urine Bacteria (None-Few) per hpf Hyaline Casts (None-Few) per lpf Ur Culture Indicated? (NO) Stool Occult Bld Scrn (Negative) 02/12/19 02/12/19 02/12/19 Range/Units 09:03 09:03 09:03 WBC 4.4 (4.3-11.1) K/mcL RBC 2.89 L (3.82-4.97) M/mcL Hgb 8.5 L (11.5-15.4) g/dL Hct 27.8 L (35.3-44.9) % MCV 96.2 (83.0-100.0) fL MCH 29.4 (28.0-33.3) pg MCHC 30.6 L (31.6-35.5) g/dL RDW 15.0 H (11.5-14.5) % Plt Count 151 (140-400) K/mcL MPV 11.9 (9.4-12.4) fL Immature Gran % 0.2 (0-4) % Seg Neutrophils % 74.6 % Lymphocytes % 10.6 % Monocytes % 11.2 % Eosinophils % 3.2 % Basophils % 0.2 % Neutrophils # 3.3 (1.6-8.9) K/mcL Lymphocytes # 0.5 L (0.6-4.6) K/mcL Monocytes # 0.5 (0.0-1.3) K/mcL Eosinophils # 0.1 (0.0-0.6) K/mcL Basophils # 0.0 (0.0-0.2) K/mcL PT (9.4-12.1) Seconds INR APTT (26.0-36.0) Seconds Sodium 144 (136-145) mEq/L Potassium 3.3 L (3.5-5.1) mEq/L Chloride 114 H (98-107) mEq/L Carbon Dioxide 21 L (23-29) mEq/L BUN 23 (8-23) mg/dL Creatinine 0.66 (0.60-1.20) mg/dL Est GFR ( Amer) > 60 (> 60) Est GFR (Non-Af Amer) > 60 (> 60) BUN/Creatinine Ratio 35 H (6-26) Glucose 107 H (70-105) mg/dL Calculated Osmolality 302 H (280-300) Calcium 7.3 L (8.6-10.3) mg/dL Magnesium (1.6-2.6) mg/dL Total Bilirubin (0.3-1.0) mg/dL Direct Bilirubin (0.0-0.2) mg/dL Indirect Bilirubin (0.0-1.2) mg/dL AST (13-39) Units/L ALT (7-52) Units/L Alkaline Phosphatase (34-104) Units/L Troponin I < 0.03 (< 0.04) ng/mL Serum Total Protein (6.4-8.9) g/dL Albumin (3.5-5.7) g/dL Globulin (2.4-3.5) g/dL Albumin/Globulin Ratio (1.1-2.2) Procalcitonin (0.00-0.15) ng/mL TSH 2.170 (0.340-5.600) mcIU/mL Urine Color (Yellow) Urine Clarity (Clear) Urine pH (5.0-8.0) pH Units Ur Specific [place] (1.010-1.025) Urine Protein (Neg-Trace) mg/dL Urine Glucose (UA) (Normal) mg/dL Urine Ketones (Negative) mg/dL Urine Blood (Negative) Urine Nitrite (Negative) Urine Bilirubin (Negative) Urine Urobilinogen (Normal) mg/dL Ur Leukocyte Esterase (Negative) Urine Microscopic RBC (0-3) per hpf Urine Microscopic WBC (0-3) per hpf Ur Squamous Epith Cells (None-Few) per lpf Urine Bacteria (None-Few) per hpf Hyaline Casts (None-Few) per lpf Ur Culture Indicated? (NO) Stool Occult Bld Scrn (Negative) 02/12/19 02/12/19 02/12/19 Range/Units 09:04 09:48 09:56 WBC (4.3-11.1) K/mcL RBC (3.82-4.97) M/mcL Hgb (11.5-15.4) g/dL Hct (35.3-44.9) % MCV (83.0-100.0) fL MCH (28.0-33.3) pg MCHC (31.6-35.5) g/dL RDW (11.5-14.5) % Plt Count (140-400) K/mcL MPV (9.4-12.4) fL Immature Gran % (0-4) % Seg Neutrophils % % Lymphocytes % % Monocytes % % Eosinophils % % Basophils % % Neutrophils # (1.6-8.9) K/mcL Lymphocytes # (0.6-4.6) K/mcL Monocytes # (0.0-1.3) K/mcL Eosinophils # (0.0-0.6) K/mcL Basophils # (0.0-0.2) K/mcL PT (9.4-12.1) Seconds INR APTT (26.0-36.0) Seconds Sodium (136-145) mEq/L Potassium (3.5-5.1) mEq/L Chloride (98-107) mEq/L Carbon Dioxide (23-29) mEq/L BUN (8-23) mg/dL Creatinine (0.60-1.20) mg/dL Est GFR ( Amer) (> 60) Est GFR (Non-Af Amer) (> 60) BUN/Creatinine Ratio (6-26) Glucose (70-105) mg/dL Calculated Osmolality (280-300) Calcium (8.6-10.3) mg/dL Magnesium (1.6-2.6) mg/dL Total Bilirubin (0.3-1.0) mg/dL Direct Bilirubin (0.0-0.2) mg/dL Indirect Bilirubin (0.0-1.2) mg/dL AST (13-39) Units/L ALT (7-52) Units/L Alkaline Phosphatase (34-104) Units/L Troponin I (< 0.04) ng/mL Serum Total Protein (6.4-8.9) g/dL Albumin (3.5-5.7) g/dL Globulin (2.4-3.5) g/dL Albumin/Globulin Ratio (1.1-2.2) Procalcitonin 0.32 H (0.00-0.15) ng/mL TSH (0.340-5.600) mcIU/mL Urine Color Yellow (Yellow) Urine Clarity Clear (Clear) Urine pH 7.0 (5.0-8.0) pH Units Ur Specific [place] 1.008 L (1.010-1.025) Urine Protein Negative (Neg-Trace) mg/dL Urine Glucose (UA) Normal (Normal) mg/dL Urine Ketones Negative (Negative) mg/dL Urine Blood Negative (Negative) Urine Nitrite Positive A (Negative) Urine Bilirubin Negative (Negative) Urine Urobilinogen Normal (Normal) mg/dL Ur Leukocyte Esterase Large H (Negative) Urine Microscopic RBC 0-3 (0-3) per hpf Urine Microscopic WBC 15-30 H (0-3) per hpf Ur Squamous Epith Cells Many H (None-Few) per lpf Urine Bacteria Many H (None-Few) per hpf Hyaline Casts None Seen (None-Few) per lpf Ur Culture Indicated? YES A (NO) Stool Occult Bld Scrn Negative (Negative) - Radiology Data Radiology results reviewed: Yes I reviewed the patient's radiology results. Chest X-Ray 02/12/19 09:08 IMPRESSION: No acute cardiopulmonary process. D/ / 02/12/2019 09:29:51 Franny Vazquez MD / [facility] Interpreting Provider: Franny Vazquez MD Chest/Abdomen/Pelvis CTA 02/12/19 12:03 IMPRESSION: Few focal ground-glass opacities in the bilateral upper lobes may represent areas of atelectasis or focal pneumonitis. Thickened appearance of the proximal colon may be due to incomplete distention with infectious or inflammatory colitis not excluded. Correlate clinically. Otherwise no evidence of acute process in the chest abdomen or pelvis. D/ / Liang Quintana / Liang Quintana Interpreting Provider: Liang Quintana Head CT 02/12/19 12:03 IMPRESSION: No acute intracranial abnormality. D/ / 02/12/2019 12:20:55 Papo Valencia MD / [facility] Interpreting Provider: Papo Valencia MD - EKG Data EKG #1 EKG attestation: Yes I reviewed and interpreted this EKG. EKG results narrative: Heart rate 84, rhythm sinus with premature atrial complexes, axis normal. Intervals within normal limits. No ST segment elevation or depression noted. When compared with previous EKG dated 12/05/2018 there are no premature atrial complexes on that EKG.
[2019-02-12] MEDS ORDERED: Naloxone 0.4 MG/ML INJ IVP PRN (15:33)
[2019-02-12] MEDS ORDERED: *HR* LORazepam 2 MG/ML VIAL IVP PRN (15:38)
--- NOTE | 2019-02-12 15:44 | Internal Med History&Physical ---
Date of Encounter: 02/12/19 Time of Encounter: 15:00 Internal Medicine - H&P: HPI Chief complaint: Palpitations Admitted From: Emergency Dept Plans for Post Hospital Care: Home History of present illness: Ms. Garcia is a 73 year old female with a past medical history significant for coronary artery disease, DVT, hyperlipidemia, hypertension, depression, bipolar disorder, presented to the hospital because of the palpitations. Patient mentioned that she woke up at the same in the morning and she noticed that her heart rate was 150. She recalled that she had a similar episode back in April when she was in the hospital at that time. She was also feeling very anxious at that time. She decided to relax herself and avoided to go to the hospital. She ultimately came to the hospital when her heart rate continued to be high. She denied any chest pain, shortness of breath during that time. Endorses fever, chills and sense of being cold for the past few months. Endorses dysuria for the past few days. Denies hematuria. Denies blood in stools, diarrhea, melena. Mentioned that she had a fall on most 2 weeks back and she felt on the left side. She did not come to the hospital at that time. Denies hitting her head at that time. 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 Chest x-ray was normal. CT scan of the abdomen and the chest was concerning for atelectasis. There were also concerns of thickened appearance of the proximal colon which could be because of incomplete distention with infectious or inflammatory colitis not excluded. Laboratory showed hypokalemia and hypocalcemia. UA concerning for UTI. Patient was admitted for further management. Past Med Surg Social Fam HX - Past Medical History Medical history: arthritis, coronary artery disease, DVT, hyperlipidemia, hypertension, migraine, renal disease, thyroid disease Psychiatric history: bipolar - Past Surgical History Surgical History: cholecystectomy, hysterectomy, orthopedic, other, other Additional surgical history: mid back sx, knee surgery, foot and shoulder surgery gastric bypass, R hip replacement, recent lt hip replacement - Social History Smoking Status: Former smoker Smokeless Tobacco Status: No Alcohol use: none Drug use: none - Family History Mother Family Member Ethnicity: Non- Living Status: Hx Family Cardiac Disorders: Yes Internal Medicine - H&P: Meds Rosuvastatin [Crestor] 40 mg PO HS 06/26/15 [History] Aspirin [Lo-Dose Aspirin EC] 81 mg PO DAILY 05/05/18 [History] Pantoprazole Sodium [Protonix] 40 mg PO BID 05/05/18 [History] Docusate [Colace] 100 mg PO BID PRN 05/21/18 [History] Buspirone HCl [Buspar] 10 mg PO TID 12/05/18 [History] Carvedilol 12.5 mg PO BIDWM 12/05/18 [History] FLUoxetine HCl [Fluoxetine HCl] 40 mg PO BID 12/05/18 [History] Furosemide [Lasix] 20 mg PO QPM 12/05/18 [History] Furosemide [Lasix] 40 mg PO QAM 12/05/18 [History] Isosorbide MONOnitrate [Isosorbide Mononitrate ER] 30 mg PO DAILY 12/05/18 [History] Levothyroxine Sodium 100 mcg PO 0630 12/05/18 [History] OxyCODONE/APAP 5/325 [Percocet 5/325 MG] 1 each PO Q6H PRN 12/05/18 [History] Potassium Chloride [K-Tab ER] 20 meq PO DAILY 12/05/18 [History] Pregabalin [Lyrica] 150 mg PO TID 12/05/18 [History] Ranitidine HCl [Acid Cutter Operator] 150 mg PO DAILY 12/05/18 [History] Rivaroxaban [Xarelto] 20 mg PO QPM 12/05/18 [History] Verapamil ER (24 HR) [Calan SR] 120 mg PO DAILY 12/05/18 [History] Mirtazapine 7.5 mg PO HS 02/12/19 [History] hydrOXYzine HCl [Hydroxyzine HCl] 25 mg PO PRN 02/12/19 [History] Allergy/AdvReac Type Severity Reaction Status Date / Time Amoxicillin AdvReac Vomiting Verified 05/21/18 13:27 meperidine [From Demerol] AdvReac Vomiting Verified 05/21/18 13:27 Sulfa (Sulfonamide AdvReac Vomiting Verified 05/21/18 13:27 Antibiotics) All Systems PM: A 10-system review of systems was performed and is negative for pertinent findings except as documented above in the HPI. Review of systems: General: See HPI HEENT: Negative for neck swelling, discharge from nose, discharge from ears. EYES: Negative for any discharge from the eyes. Respiratory: See HPI Cardiovascular: See HPI Gastrintestical: Negative for diarrhea, constipation, blood in stools. Genitourinary: See HPI Hematological: Negative for blood loss, negative for active cancer. Neurological: Negative for headache, dizziness, blurry vision, loss os power and sensations. Endocrinology: Negative for constipation, polyuria, polydipsia. Integumentary: Negative for rash, wounds, ulcers. Psychiatric: Negative for anxiety or depression. - Constitutional Vitals: Temp Pulse Resp BP Pulse Ox 98.0 F 65 16 147/84 97 02/12/19 15:06 02/12/19 15:06 02/12/19 15:06 02/12/19 15:06 02/12/19 15:06 Exam: General: Alert and oriented, no physical distress, able to follow commands. Seems very anxious HEENT: No thyromegaly, no lymphadenopathy, no discharge. Eyes: No discharge. Normal conjuctiva, no icterus Respiratory: Normal vesicular breathing, no added sounds, breathing equal in both sides. CVS: Normal heart sounds, no murmurs, regular rhthm, 1+ bilateral lower extremrity edema. Extremities: Peripheral pulses intact Lymph nodes: No lymphadenopathy Gastrointestinal: Soft, nontender abdomen, normal abdominal sounds. No distention noted. Genitourinary: No paravertebral tenderness. Skin: No rash, ulcers or wound. Neurological: Alert and oriented. No focal deficits. Cranial nerves II-XII intact. Internal Med - H&P Results - Labs CBC & Chem 7: 02/12/19 09:03 02/12/19 09:03 Labs: Short CBC 02/12/19 Range/Units 09:03 WBC 4.4 (4.3-11.1) K/mcL Hgb 8.5 L (11.5-15.4) g/dL Hct 27.8 L (35.3-44.9) % Plt Count 151 (140-400) K/mcL Neutrophils # 3.3 (1.6-8.9) K/mcL BMP 02/12/19 09:03 Sodium 144 Potassium 3.3 L Chloride 114 H Carbon Dioxide 21 L BUN 23 Creatinine 0.66 Glucose 107 H Calcium 7.3 L Cardiac Enzymes 02/12/19 Range/Units 09:03 Troponin I < 0.03 (< 0.04) ng/mL Liver Function 02/12/19 Range/Units 09:03 Total Bilirubin 0.5 (0.3-1.0) mg/dL Direct Bilirubin 0.1 (0.0-0.2) mg/dL AST 43 H (13-39) Units/L ALT 31 (7-52) Units/L Alkaline Phosphatase 137 H (34-104) Units/L Albumin 2.8 L (3.5-5.7) g/dL Urine 02/12/19 Range/Units 09:56 Urine Color Yellow (Yellow) Urine Clarity Clear (Clear) Urine pH 7.0 (5.0-8.0) pH Units Ur Specific [place] 1.008 L (1.010-1.025) Urine Protein Negative (Neg-Trace) mg/dL Urine Glucose (UA) Normal (Normal) mg/dL - Impressions ITS Impressions Chest X-Ray 02/12/19 09:08 IMPRESSION: No acute cardiopulmonary process. D/ / 02/12/2019 09:29:51 Franny Vazquez MD / [facility] Interpreting Provider: Franny Vazquez MD Chest/Abdomen/Pelvis CTA 02/12/19 12:03 IMPRESSION: Few focal ground-glass opacities in the bilateral upper lobes may represent areas of atelectasis or focal pneumonitis. Thickened appearance of the proximal colon may be due to incomplete distention with infectious or inflammatory colitis not excluded. Correlate clinically. Otherwise no evidence of acute process in the chest abdomen or pelvis. D/ / Liang Quintana / Liang Quintana Interpreting Provider: Liang Quintana Head CT 02/12/19 12:03 IMPRESSION: No acute intracranial abnormality. D/ / 02/12/2019 12:20:55 Papo Valencia MD / [facility] Interpreting Provider: Papo Valencia MD - Assessment and Plan (1) SVT (supraventricular tachycardia) Current Visit: Yes Status: Acute Assessment and plan: Discussed with the ED physician, at the time of presentation, patient HR noted w as around 148-150, rhythm strip was consistent with a SVT. Valslva manuevere and leg raising converted to sinus EKG obtained following that, showed sinus rhythm. Etiolgoy unclear. HAd a similar episode in the past but was normal after that for past 7-8 months Currently patient seems to be in sinus rhythm with a heart rate around 80s to 90s. Patient is chest pain-free, denies any shortness of breath. Troponin initially was negative. TSH obtained in the ED normal. Continue to monitor the patient. CArdiology consult placed. Repeat troponin Restart on home mds of coreg and verapamil (2) Palpitations Current Visit: Yes Status: Acute Assessment and plan: Likely due to SVT Plan mentioned above (3) Anxiety Current Visit: No Status: Acute Assessment and plan: Has a history of anxiety follows up with him psychiatrist. Continue home medications. Added ativan as the pt seems very anxious right now (4) Depression Current Visit: No Status: Acute Assessment and plan: Continue home meds Qualifiers: Depression Type: unspecified Qualified Code(s): F32.9 - Major depressive disorder, single episode, unspecified (5) Coronary artery disease Current Visit: No Status: Chronic Assessment and plan: Hx of CAD, last cath as per pt was 10 years back, no stents. Most recent echo on 11/26 2018 that showed normal ejection fraction, mild left ventricular diastolic dysfunction. Initial troponin normal, repeat to rule out ACS Qualifiers: Coronary Disease-Associated Artery/Lesion type: unspecified vessel or lesion type [place] vs. transplanted heart: unspecified whether [place] or transplanted heart Associated angina: angina presence unspecified Qualified Code(s): I25.10 - Atherosclerotic heart disease of [place] coronary artery without angina pectoris (6) Hypertension Current Visit: No Status: Chronic Assessment and plan: Continue home meds Qualifiers: Hypertension type: essential hypertension Qualified Code(s): I10 - Essential (primary) hypertension (7) UTI (urinary tract infection) Current Visit: Yes Status: Acute Assessment and plan: UA concerning for the UTI Compalining of dysuria. Order cipro 250 mg twice daily for 3 days Await culture results Qualifiers: Urinary tract infection type: acute cystitis Hematuria presence: without hematuria Qualified Code(s): N30.00 - Acute cystitis without hematuria (8) Hypokalemia Current Visit: Yes Status: Acute Assessment and plan: potassium of 3.3 Repated in the ED Repeat levels tomorrow (9) Hypocalcemia Current Visit: Yes Status: Acute Assessment and plan: Low calcium repeat levels tomororw was repleted in the ED (10) Congestive heart failure Current Visit: Yes Status: Acute Assessment and plan: has congestive heart failure Echo was distended on 11/26/2018 with normal ejection fraction and mild left ventricular diastolic dysfunction. Patient currently has lower extremity edema. Chest x-ray clear for any infiltrates. Patient is currently on Lasix at home. Continue Lasix. Qualifiers: Heart failure type: diastolic Heart failure chronicity: chronic Qualified Code(s): I50.32 - Chronic diastolic (congestive) heart failure (11) Hypothyroidism Current Visit: Yes Status: Acute Assessment and plan: Continue levothyroxine Qualifiers: Hypothyroidism type: unspecified Qualified Code(s): E03.9 - Hypothyroidism, unspecified - Time Spent With Patient Total time spent is greater than 50% in coordination of care (as documented) at patient's floor/unit and/or counseling patient:
[2019-02-12] MEDS ORDERED: *HR* OxyCODONE/APAP 5/325 TABLET PO PRN (17:13)
--- NOTE | 2019-02-12 17:39 | Emergency Department Note ---
START Narrative - START START: I, Javy Velez, examined this patient and my medical decision-making was reviewed with the HEALTH MANAGEMENT CONSULTANT/PA/Advanced Practice Nurse/Resident Physician. I agree with the documented findings, disposition and treatment plan as described except to the extent set forth below. 73-year-old female presents emergency Department with concerns of tachycardia, palpitations, and distended. Patient states she had acute onset of her palpitations earlier today. This woke her from sleep. Her heart rate is persistently 148 during the evaluation. We did not have a formal EKG of the patient's rhythm however her blood pressure was soft and therefore we perform vagal maneuvers which converted the patient to a sinus rhythm with a rate of low 80s. Patient denies recent fever, chills, abdominal pain, hematochezia, melena. Patient takes Xarelto and is anemic today in the emergency department. Patient also reports a mechanical fall one week ago. Patient states she has significant tenderness to palpation of the left ribs since that time. CTA of the chest abdomen pelvis did not show evidence of acute fracture or splenic hemorrhage or other free fluid within the peritoneal or intrathoracic cavities. CT did however show possible pneumonitis. She is afebrile and does not have leukocytosis. I spoke with HOSPITALIST to prefers to wait on antibiotics and we will repeat reevaluate on the floor. Patient was updated regarding CT and laboratory results. She felt comfortable with the plan of action.
[2019-02-12] MEDS ORDERED: Acetaminophen 325 MG TABLET PO PRN (17:48)
[2019-02-12] MEDS ORDERED: Furosemide 20 MG TABLET PO SCH (18:00)
[2019-02-12] MEDS: *HR* Heparin 5,000 UNIT/ML VIAL SQ SCH (18:23)
[2019-02-12] MEDS ORDERED: Mirtazapine 15 MG TABLET PO SCH (21:00)
[2019-02-12] MEDS: Pregabalin 75 MG CAPSULE PO SCH (21:52)
[2019-02-13 05:16] LABS: Basophils % 0.2 %; Eosinophils # 0.2 K/mcL (0.0-0.6); Eosinophils % 5.1 %; Immature Granulocytes % 0.2 % (0-4); Lymphocytes # 0.6 K/mcL (0.6-4.6); Lymphocytes % 13.6 %; Mean Corpuscular Hemoglobin 28.7 pg (28.0-33.3); Mean Corpuscular Volume 92.4 fL (83.0-100.0); Mean Platelet Volume 12.3 fL (9.4-12.4); Monocytes # 0.5 K/mcL (0.0-1.3); Monocytes % 11.2 %; Neutrophils # 3.1 K/mcL (1.6-8.9); Platelet Count 149 K/mcL (140-400); Red Blood Count 3.14 M/mcL (3.82-4.97); Red Cell Distribution Width 15.2 % (11.5-14.5); Segmented Neutrophils % 69.7 %; White Blood Count 4.5 K/mcL (4.3-11.1)
[2019-02-13 05:30] LABS: BUN/Creatinine Ratio 28 (6-26); Blood Urea Nitrogen 20 mg/dL (8-23); Calcium 7.8 mg/dL (8.6-10.3); Carbon Dioxide 25 mEq/L (23-29); Chloride 107 mEq/L (98-107); Glucose 101 mg/dL (70-105); Magnesium 1.9 mg/dL (1.6-2.6); Osmolality,Calculated 293 (280-300); Potassium 3.9 mEq/L (3.5-5.1); Sodium 140 mEq/L (136-145); eGFR For African Americans > 60 (> 60); eGFR For Non-African Americans > 60 (> 60)
[2019-02-13] MEDS: *HR* Heparin 5,000 UNIT/ML VIAL SQ SCH (05:47)
--- NOTE | 2019-02-13 06:51 | Electrocardiograph Report ---
[facility] Test Date: 2019-02-12 Pat Name: Olga Lidia Garcia Department: EXAM5 Room: 3B49 Gender: F Steam Cleaner: : 1945 Requested By: Cally Burks Order Number: [id number] Reading MD: Taiwo Real Measurements Intervals [place] Rate: 84 P: 21 UT: 151 QRS: 2 QRSD: 86 T: 15 QT: 375 QTc: 444 Interpretive Statements Sinus rhythm Electronically Signed On 02-13-2019 6:49:57 EDT by Taiwo Real
[2019-02-13] MEDS: Pregabalin 75 MG CAPSULE PO SCH (08:43)
[2019-02-13] MEDS ORDERED: Famotidine 20 MG TABLET PO SCH (09:00)
[2019-02-13] MEDS ORDERED: Aspirin Enteric Coated 81 MG Tablet PO SCH (09:00)
[2019-02-13] MEDS ORDERED: Isosorbide MONOnitrate (24 HR) 30 MG TAB.ER.24H PO SCH (09:00)
[2019-02-13] MEDS ORDERED: Verapamil ER (24 HR) 120 MG TABLET.ER PO SCH (09:00)
[2019-02-13] MEDS ORDERED: Furosemide 20 MG TABLET PO SCH (09:00)
[2019-02-13 11:20] VITALS: BP 98/61
--- NOTE | 2019-02-13 11:25 | Cardiology Consult Note ---
<Keenan Acuna - Last Filed: 02/13/19 12:29> Date of Encounter: 02/13/19 Time of Encounter: 11:58 Assessment and Plan (1) SVT (supraventricular tachycardia) Current Visit: Yes Status: Acute Known bouts of SVT per medical records, sees Dr. Dewitt; last visit 08/15/18 EKGs reviewed with Sinus Rhythm. Reported SVT in ED; valsalva maneuver converted to sinus rhythm. Currently, Ave HR on telemetry 72 sinus rhythm. No significant tachycardia events. Presented with low Hgb 8.5, 9.0 from previous range of 12.; Concern for UTI cultures pending. SVT possibly related to anemia; unkown source; recommend primary f/u. On Varapemil 180mg daily; currently takine 120mg and on COreg 12.5 mg BID. (2) Chest pain Current Visit: Yes Status: Acute Per review of medical records apparent history of CAD, no LHC revords noted within [facility]. One episode chest pain possibly related to SVT; currently denies chest pain, palpitations. Troponins negative x 2. Previous stress test 11/12 negative for ischemia. Echo 11/26/18 EF 60% NSWMA. On Imdur, continue. Qualifiers: Qualified Code(s): R07.9 - Chest pain, unspecified Discussion w patient/family: The assessment and plan as outlined above was discussed with the patient and/or family members who expressed understanding and agreement. All questions were ans wered. Thank you for involving us in the care of your patient. Please call with any questions. History of Present Illness Consult date: 02/13/19 Consult reason: chest pain/palitations Chief complaint: SVT History of present illness: Ms. Garcia is a 73 year old female PMH of CAD, HLD, HTN, Dep/Anx, DVT, presented for chest pain/palpitations. Admits to palpitations at rest Apparent SVT in ED HR 140s) concurrent w/ one episode non-radiating intemittent chest pain; similar episode of racing heart in 05/14 with frequent falls. Previously seen by Dr. Dewitt; no EKG tracings of SVT noted in records. Admits to SOB, chills, fevers, dysuria, dark urine. Denies hematuria, n/v, diarrhea, hematochezia. Admits to coinciding high levels of anxiety. Seeks treatment for anxiety with ativan since April but states not being prescribed by doctor. Past Med Surg Social Fam HX - Past Medical History Medical history: arthritis, coronary artery disease, DVT, hyperlipidemia, hypertension, migraine, renal disease, thyroid disease Additional medical history: Osteoporosis Psychiatric history: anxiety, bipolar, depression - Past Surgical History Surgical History: cholecystectomy, hysterectomy, orthopedic, other, other Additional surgical history: mid back sx, knee surgery, foot and shoulder surgery gastric bypass, R hip replacement, recent lt hip replacement - Social History Smoking Status: Former smoker Smokeless Tobacco Status: No Alcohol use: none Drug use: none - Family History Mother Family Member Ethnicity: Non- Living Status: Hx Family Cardiac Disorders: Yes Medications and Allergies Aspirin [Lo-Dose Aspirin EC] 81 mg PO DAILY 05/05/18 [History] Pantoprazole Sodium [Protonix] 40 mg PO BID 05/05/18 [History] Docusate [Colace] 100 mg PO BID PRN 05/21/18 [History] Carvedilol 12.5 mg PO BIDWM 12/05/18 [History] Furosemide [Lasix] 20 mg PO QPM 12/05/18 [History] Furosemide [Lasix] 40 mg PO QAM 12/05/18 [History] Isosorbide MONOnitrate [Isosorbide Mononitrate ER] 30 mg PO DAILY 12/05/18 [History] Levothyroxine Sodium 100 mcg PO 0630 12/05/18 [History] OxyCODONE/APAP 5/325 [Percocet 5/325 MG] 1 each PO Q6H PRN 12/05/18 [History] Potassium Chloride [K-Tab ER] 20 meq PO DAILY 12/05/18 [History] Pregabalin [Lyrica] 150 mg PO TID 12/05/18 [History] Ranitidine HCl [Acid Real Estate Manager] 150 mg PO DAILY 12/05/18 [History] Buspirone HCl [Buspar] 10 mg PO TID 02/12/19 [History] FLUoxetine HCl [Fluoxetine HCl] 40 mg PO DAILY 02/12/19 [History] FLUoxetine HCl [PROzac] 20 mg PO DAILY 02/12/19 [History] Mirtazapine 7.5 mg PO HS 02/12/19 [History] Verapamil ER (24 HR) [Calan SR] 120 mg PO DAILY 02/12/19 [History] hydrOXYzine HCl [Hydroxyzine HCl] 25 - 50 mg PO BID PRN 02/12/19 [History] Allergy/AdvReac Type Severity Reaction Status Date / Time Amoxicillin AdvReac Vomiting Verified 05/21/18 13:27 meperidine [From Demerol] AdvReac Vomiting Verified 05/21/18 13:27 Sulfa (Sulfonamide AdvReac Vomiting Verified 05/21/18 13:27 Antibiotics) All Systems Review: The remainder of the systems were reviewed and are negative - Cardiovascular Cardiovascular: as per HPI Physical Examination Vital Signs, Last 4 Hours Temp Pulse Resp BP Pulse Ox 02/13/19 11:18 98.1 F 74 15 98/61 96 General: Conversant, No Apparent Distress HEENT: Atraumatic, Normocephaly, Mucus Membranes Moist Neck: No JVD, Normal carotid pulses Cardiac: Reg Rate and Rhythm, Normal S1 and S2, No Murmur Lungs: Normal Breath Sounds, No Wheeze, Rales, Rhonchi Neuro: Alert and responsive, No focal deficits noted Abdomen: Soft, Non-Tender Skin: No rashes noted on visualized skin Musculoskeletal: No Chest Wall Tenderness Extremities: No Clubbing, No Cyanosis, No Edema, Normal Pulses Results 02/13/19 04:04 02/13/19 04:04 Lab Results Laboratory Tests 02/12/19 02/13/19 09:03 04:04 Hgb 8.5 L 9.0 L Laboratory Tests 02/12/19 02/12/19 02/13/19 09:03 09:48 04:04 BUN 20 Creatinine 0.71 Est GFR (Non-Af Amer) > 60 TSH 2.170 Stool Occult Bld Scrn Negative Laboratory Tests 02/12/19 02/12/19 09:03 15:56 Troponin I < 0.03 < 0.03 Impressions Chest/Abdomen/Pelvis CTA 02/12/19 12:03 IMPRESSION: Few focal ground-glass opacities in the bilateral upper lobes may represent areas of atelectasis or focal pneumonitis. Thickened appearance of the proximal colon may be due to incomplete distention with infectious or inflammatory colitis not excluded. Correlate clinically. Otherwise no evidence of acute process in the chest abdomen or pelvis. D/ / Liang Quintana / Liang Quintana Interpreting Provider: Liang Quintana Head CT 02/12/19 12:03 IMPRESSION: No acute intracranial abnormality. D/ / 02/12/2019 12:20:55 Papo Valencia MD / [facility] Interpreting Provider: Papo Valencia MD Active Medications Acetaminophen (Tylenol) 650 mg PO Q6HR PRN PRN Reason: Mild Pain Stop: 08/14/19 17:49 Last Admin: 02/12/19 18:25 Dose: 650 mg Documented by: Aspirin (Aspirin Ec) 81 mg PO DAILY [facility] Stop: 08/15/19 09:01 Last Admin: 02/13/19 08:40 Dose: 81 mg Documented by: Buspirone HCl (Buspar) 10 mg PO TID [facility] Stop: 08/14/19 21:01 Last Admin: 02/13/19 08:42 Dose: 10 mg Documented by: Carvedilol (Coreg) 12.5 mg PO BIDWM [facility] Stop: 08/15/19 08:01 Last Admin: 02/13/19 08:41 Dose: 12.5 mg Documented by: Ciprofloxacin HCl (Cipro) 250 mg PO BID [facility] Stop: 02/15/19 21:01 Last Admin: 02/13/19 08:40 Dose: 250 mg Documented by: Famotidine (Pepcid) 20 mg PO DAILY [facility] Stop: 08/15/19 09:01 Last Admin: 02/13/19 08:41 Dose: 20 mg Documented by: Furosemide (Lasix) 20 mg PO QPM [facility] Stop: 08/14/19 18:01 Last Admin: 02/12/19 18:25 Dose: 20 mg Documented by: Furosemide (Lasix) 40 mg PO QAM [facility] Stop: 08/15/19 09:01 Last Admin: 02/13/19 08:40 Dose: 40 mg Documented by: Heparin Sodium (Porcine) (Heparin) 5,000 unit SQ Q12HCO [facility]; Protocol Stop: 08/14/19 18:01 Last Admin: 02/13/19 05:47 Dose: 5,000 unit Documented by: Isosorbide Mononitrate (Imdur) 30 mg PO DAILY [facility] Stop: 08/15/19 09:01 Last Admin: 02/13/19 08:41 Dose: 30 mg Documented by: Levothyroxine Sodium (Synthroid) 100 mcg PO 0630 [facility]OS[facility] Stop: 08/15/19 06:31 Last Admin: 02/13/19 05:47 Dose: 100 mcg Documented by: Lidocaine HCl (Lidoderm 5% Patch) 1 each TP QPM [facility]OS[facility] Stop: 08/14/19 17:36 Last Admin: 02/13/19 07:40 Dose: Not Given Documented by: Lorazepam (Ativan) 1 mg IVP Q6HR PRN PRN Reason: Anxiety Stop: 08/14/19 15:39 Mirtazapine (Remeron) 7.5 mg PO HS JOSH Stop: 08/14/19 21:01 Last Admin: 02/12/19 21:52 Dose: 7.5 mg Documented by: Naloxone HCl (Narcan) 0.4 mg IVP Q2MPRN PRN PRN Reason: SEE COMMENTS Stop: 08/14/19 15:34 Omeprazole (Prilosec) 20 mg PO BID [facility] Stop: 08/14/19 21:01 Last Admin: 02/13/19 08:41 Dose: 20 mg Documented by: Oxycodone/Acetaminophen (Percocet 5/325) 1 each PO Q6H PRN PRN Reason: Pain Stop: 08/14/19 17:14 Potassium Chloride (Potassium Chloride) 20 meq PO DAILY JOS[facility] Stop: 08/15/19 09:01 Last Admin: 02/13/19 08:41 Dose: 20 meq Documented by: Pregabalin (Lyrica) 150 mg PO TID [facility] Stop: 08/14/19 21:01 Last Admin: 02/13/19 08:43 Dose: 150 mg Documented by: Verapamil HCl (Calan Sr) 120 mg PO DAILY [facility]; Protocol Stop: 08/15/19 09:01 Last Admin: 02/13/19 08:40 Dose: 120 mg Documented by: - Imaging and Cardiology Chest Xray: report reviewed Stress Test: report reviewed - EKG Interpretation EKG results cardiology: sinus rhythm Consult Discharge Plan - Plan Referrals: Sharifa Hutton, DO [Primary Care Provider] - <Javy Amaya - Last Filed: 02/13/19 13:59> Date of Encounter: 02/13/19 - Attending Attestation I have personally performed a face to face evaluation on this patient. I have reviewed and agree with the care plan. History and Exam by me shows: Presented with SVT which responded to vagal manauvers. History of SVT. No EKGs or tele of episode. Medical mgmt. vs. ablation, will fu as outpt. Assessment and Plan Discussion w patient/family: The assessment and plan as outlined above was discussed with the patient and/or family members who expressed understanding and agreement. All questions were answered. Thank you for involving us in the care of your patient. Please call with any questions. History of Present Illness History of present illness: Ms. Garcia is a 73 year old female All Systems Review: The remainder of the systems were reviewed and are negative Physical Examination Vital Signs, Last 4 Hours Temp Pulse Resp BP Pulse Ox 02/13/19 12:35 96 02/13/19 11:18 98.1 F 74 15 98/61 96 Results 02/13/19 04:04 02/13/19 04:04 Lab Results 02/12/19 02/12/19 02/13/19 15:56 15:56 04:04 WBC 4.5 Hgb 9.0 L Hct 29.0 L Plt Count 149 Sodium Potassium Chloride Carbon Dioxide BUN Creatinine Glucose Calcium Magnesium Troponin I < 0.03 B-Natriuretic Peptide 396 H 02/13/19 04:04 WBC Hgb Hct Plt Count Sodium 140 Potassium 3.9 Chloride 107 Carbon Dioxide 25 BUN 20 Creatinine 0.71 Glucose 101 Calcium 7.8 L Magnesium 1.9 Troponin I B-Natriuretic Peptide
[2019-02-13] MEDS: Calcium Gluconate 1gm/50mL 1 GM/50 ML BAG IVPB SCH (12:15)
--- NOTE | 2019-02-13 13:18 | Event Note ---
Date of Encounter: 02/13/19 Time of Encounter: 13:15 - Cardiology Event Note LHC from 07/2009: Prox LAD 50% and mid LAD 40% nonobstructive lesions. Reviewed with Dr. Javy Amaya, cardiology signing off, re-consult PRN, f/u arranged.
--- NOTE | 2019-02-13 14:07 | Discharge Summary ---
- NOTES TO OUTPATIENT PROVIDER Notes to Outpatient Provider: Presented with the palpitations, had SVT, cardiology consulted, no intervetnions. Had UTI , will give ciprofloxacin for 3- 4 days. HAs anemia, hgb dropped to 9.0 from 12 in 3 months, will need GI follow up. Orders not resulted at time of discharge: Pending orders 02/12/19 09:56 Culture,Urine [RM] Stat Date of Encounter: 02/13/19 Time of Encounter: 09:00 - Discharge Diagnosis (1) SVT (supraventricular tachycardia) Priority: Primary Status: Acute (2) Palpitations Priority: Secondary Status: Acute (3) Anxiety Priority: Secondary Status: Acute (4) Depression Priority: Secondary Status: Acute Qualifiers: Depression Type: unspecified Qualified Code(s): F32.9 - Major depressive disorder, single episode, unspecified (5) Coronary artery disease Priority: Secondary Status: Chronic Qualifiers: Coronary Disease-Associated Artery/Lesion type: unspecified vessel or lesion type [place] vs. transplanted heart: unspecified whether [place] or transplanted heart Associated angina: angina presence unspecified Qualified Code(s): I25.10 - Atherosclerotic heart disease of [place] coronary artery without angina pectoris (6) Hypertension Priority: Secondary Status: Chronic Qualifiers: Hypertension type: essential hypertension Qualified Code(s): I10 - Essential (primary) hypertension (7) UTI (urinary tract infection) Priority: Secondary Status: Acute Qualifiers: Urinary tract infection type: acute cystitis Hematuria presence: without hematuria Qualified Code(s): N30.00 - Acute cystitis without hematuria (8) Hypokalemia Priority: Secondary Status: Acute (9) Hypocalcemia Priority: Secondary Status: Acute (10) Congestive heart failure Priority: Secondary Status: Acute Qualifiers: Heart failure type: diastolic Heart failure chronicity: chronic Qualified Code(s): I50.32 - Chronic diastolic (congestive) heart failure (11) Hypothyroidism Priority: Secondary Status: Acute Qualifiers: Hypothyroidism type: unspecified Qualified Code(s): E03.9 - Hypothyroidism, unspecified Hospital course: Ms. Garcia is a 73 year old female with a past medical history significant for coronary artery disease, DVT, hyperlipidemia, hypertension, depression, bipolar disorder, presented to the hospital because of the palpitations. Patient mentioned that she woke up at the same in the morning and she noticed that her heart rate was 150. In the emergency department, she was put on the telemetry monitor, rhythm was mostly consistent with SVT, Valsalva manueveres were tried, raising her legs converted her back to the sinus ryhthm and she remained in sinus rhtyhtm then. UA was positive for UTI, sarted on ciprofloxacin considering the allergies. DId well in the hospital. Cardiolgoy consulted, no interventions planned. pt is being discharged with the antibiotics for the UTI. Of note, she had an echo recently which was normal. Also troponins remained normal in the hosptial. Pt hgb was 9 in the hopsital whichb dropped from 12, from november. She is following up wiht the GI as outpatient. Instructed her to make sure to follow up and that she might need endoscopy. Pt voiced understanding. Stool occult in the hosp was negative, no bleeding per rectum reported and the pt hgb remaiend stable. Pt is being dischrged in stable condition. Medications sent to the pharmacy. - Time Spent with Patient Total time spent providing and/or coordinating discharge services: 35 minutes - Discharge Medications Prescriptions: New Ciprofloxacin [Cipro] 250 mg PO BID 4 Days #8 tablet Lidocaine Patch [Lidoderm 5% patch] 1 each TP QPM adh..patch Continued Aspirin [Lo-Dose Aspirin EC] 81 mg PO DAILY Pantoprazole Sodium [Protonix] 40 mg PO BID Docusate [Colace] 100 mg PO BID PRN PRN Reason: Constipation Carvedilol 12.5 mg PO BIDWM Furosemide [Lasix] 40 mg PO QAM Furosemide [Lasix] 20 mg PO QPM Levothyroxine Sodium 100 mcg PO 0630 OxyCODONE/APAP 5/325 [Percocet 5/325 MG] 1 each PO Q6H PRN PRN Reason: Pain Potassium Chloride [K-Tab ER] 20 meq PO DAILY Pregabalin [Lyrica] 150 mg PO TID Ranitidine HCl [Acid Turkey Farmer] 150 mg PO DAILY Isosorbide MONOnitrate [Isosorbide Mononitrate ER] 30 mg PO DAILY Mirtazapine 7.5 mg PO HS hydrOXYzine HCl [Hydroxyzine HCl] 25 - 50 mg PO BID PRN PRN Reason: Anxiety Verapamil ER (24 HR) [Calan SR] 120 mg PO DAILY FLUoxetine HCl [Prozac] 20 mg PO DAILY FLUoxetine HCl [Fluoxetine HCl] 40 mg PO DAILY Buspirone HCl [Buspar] 10 mg PO TID Home Medications: Aspirin [Lo-Dose Aspirin EC] 81 mg PO DAILY 05/05/18 [History] Pantoprazole Sodium [Protonix] 40 mg PO BID 05/05/18 [History] Docusate [Colace] 100 mg PO BID PRN 05/21/18 [History] Carvedilol 12.5 mg PO BIDWM 12/05/18 [History] Furosemide [Lasix] 20 mg PO QPM 12/05/18 [History] Furosemide [Lasix] 40 mg PO QAM 12/05/18 [History] Isosorbide MONOnitrate [Isosorbide Mononitrate ER] 30 mg PO DAILY 12/05/18 [History] Levothyroxine Sodium 100 mcg PO 0630 12/05/18 [History] OxyCODONE/APAP 5/325 [Percocet 5/325 MG] 1 each PO Q6H PRN 12/05/18 [History] Potassium Chloride [K-Tab ER] 20 meq PO DAILY 12/05/18 [History] Pregabalin [Lyrica] 150 mg PO TID 12/05/18 [History] Ranitidine HCl [Acid Turkey Farmer] 150 mg PO DAILY 12/05/18 [History] Buspirone HCl [Buspar] 10 mg PO TID 02/12/19 [History] FLUoxetine HCl [Fluoxetine HCl] 40 mg PO DAILY 02/12/19 [History] FLUoxetine HCl [Prozac] 20 mg PO DAILY 02/12/19 [History] Mirtazapine 7.5 mg PO HS 02/12/19 [History] Verapamil ER (24 HR) [Calan SR] 120 mg PO DAILY 02/12/19 [History] hydrOXYzine HCl [Hydroxyzine HCl] 25 - 50 mg PO BID PRN 02/12/19 [History] Ciprofloxacin [Cipro] 250 mg PO BID 4 Days #8 tablet 02/13/19 [Rx] Lidocaine Patch [Lidoderm 5% patch] 1 each TP QPM adh..patch 02/13/19 [Rx] Allergies/Adverse Reactions: Allergy/AdvReac Type Severity Reaction Status Date / Time Amoxicillin AdvReac Vomiting Verified 05/21/18 13:27 meperidine [From Demerol] AdvReac Vomiting Verified 05/21/18 13:27 Sulfa (Sulfonamide AdvReac Vomiting Verified 05/21/18 13:27 Antibiotics) Date of admission: 02/12/19 13:32 Primary care physician: Sharifa Hutton DO Consults: 02/12/19 15:38 Consult to Cardiology [CONS] Routine Comment: Consulting Provider: [facility] [place] Reason for Consult: Palpitations SVT Call Completed: No - Constitutional Vitals: Temp Pulse Resp BP Pulse Ox 98.1 F 74 15 98/61 96 02/13/19 11:18 02/13/19 11:18 02/13/19 11:18 02/13/19 11:18 02/13/19 12:35 Exam: General: Alert and oriented, no physical distress, able to follow commands. Respiratory: Normal vesicular breathing, no added sounds, breathing equal in both sides. CVS: Normal heart sounds, no murmurs, regular rhthm, 1+ bilateral lower extremrity edema. Extremities: Peripheral pulses intact Lymph nodes: No lymphadenopathy Gastrointestinal: Soft, nontender abdomen, normal abdominal sounds. No distention noted. Genitourinary: No paravertebral tenderness. Skin: No rash, ulcers or wound. Neurological: Alert and oriented. No focal deficits. Cranial nerves II-XII intact. - Patient Status Disposition: Home Health Service Condition: Good - Discharge Instructions Follow Up With: Sharifa Hutton DO [Primary Care Provider] - - Diet and Activity Activity: increase activity as tolerated Diet: advance to your usual diet
--- NOTE | 2019-02-13 14:15 | Physician Discharge Referral ---
Home Health/Hosp Referral Info Transfer to: Home Health Provider in Charge Post Discharge: PCP - Diagnosis (1) SVT (supraventricular tachycardia) Priority: Primary Status: Acute (2) Palpitations Priority: Secondary Status: Acute (3) Anxiety Priority: Secondary Status: Acute (4) Depression Priority: Secondary Status: Acute (5) Coronary artery disease Priority: Secondary Status: Chronic (6) Hypertension Priority: Secondary Status: Chronic (7) UTI (urinary tract infection) Priority: Secondary Status: Acute (8) Hypokalemia Priority: Secondary Status: Acute (9) Hypocalcemia Priority: Secondary Status: Acute (10) Congestive heart failure Priority: Secondary Status: Acute (11) Hypothyroidism Priority: Secondary Status: Acute - Respiratory Orders Smoking Cessation: Smoking cessation has been advised. For more information, call the [place] Tobacco Quit Line at 0-345-IGFJ-NOW. - Services Needed Following services are medically necessary services: Nursing, Physical Therapy, Occupational Therapy - Transfer Medications Prescriptions: Ciprofloxacin [Cipro] 250 mg PO BID 4 Days #8 tablet Transmission Status: Pending to [facility] Home Medications: Aspirin [Lo-Dose Aspirin EC] 81 mg PO DAILY 05/05/18 [History] Pantoprazole Sodium [Protonix] 40 mg PO BID 05/05/18 [History] Docusate [Colace] 100 mg PO BID PRN 05/21/18 [History] Carvedilol 12.5 mg PO BIDWM 12/05/18 [History] Furosemide [Lasix] 20 mg PO QPM 12/05/18 [History] Furosemide [Lasix] 40 mg PO QAM 12/05/18 [History] Isosorbide MONOnitrate [Isosorbide Mononitrate ER] 30 mg PO DAILY 12/05/18 [History] Levothyroxine Sodium 100 mcg PO 0630 12/05/18 [History] OxyCODONE/APAP 5/325 [Percocet 5/325 MG] 1 each PO Q6H PRN 12/05/18 [History] Potassium Chloride [K-Tab ER] 20 meq PO DAILY 12/05/18 [History] Pregabalin [Lyrica] 150 mg PO TID 12/05/18 [History] Ranitidine HCl [Acid [employer]] 150 mg PO DAILY 12/05/18 [History] Buspirone HCl [Buspar] 10 mg PO TID 02/12/19 [History] FLUoxetine HCl [Fluoxetine HCl] 40 mg PO DAILY 02/12/19 [History] FLUoxetine HCl [Prozac] 20 mg PO DAILY 02/12/19 [History] Mirtazapine 7.5 mg PO HS 02/12/19 [History] Verapamil ER (24 HR) [Calan SR] 120 mg PO DAILY 02/12/19 [History] hydrOXYzine HCl [Hydroxyzine HCl] 25 - 50 mg PO BID PRN 02/12/19 [History] Ciprofloxacin [Cipro] 250 mg PO BID 4 Days #8 tablet 02/13/19 [Rx] Lidocaine Patch [Lidoderm 5% patch] 1 each TP QPM adh..patch 02/13/19 [Rx] Allergies/Adverse Reactions: Allergy/AdvReac Type Severity Reaction Status Date / Time Amoxicillin AdvReac Vomiting Verified 05/21/18 13:27 meperidine [From Demerol] AdvReac Vomiting Verified 05/21/18 13:27 Sulfa (Sulfonamide AdvReac Vomiting Verified 05/21/18 13:27 Antibiotics) Certification: Further, I certify that my clinical findings support that this patient is homebound (i.e. absences from home require considerable and taxing effort and are for medical reasons or mandaeism services or infrequently or short duration when for other reasons) because: Homebound Reason: Patient requires assistance of a person or device to safely leave home Attestation: My signature below is to certify that this patient is under my care and that I, or nurse practitioner, or a physician's interior design assistant working with me, has a [id number] encounter with this patient.
== END 2019-02-13 15:23 | disposition home health service (06) ==
LOC: 3BNU 08:17 → EMEROOARM 08:17 → SUATTDRO 13:32 → 3BNU 14:33
PROVIDERS: ADMIT Internal Medicine; ATTEND Internal Medicine

== ENCOUNTER 2019-02-24 10:20 | Inpatient (IN) ==
[2019-02-24] MEDS ORDERED: SODIUM CHLORIDE 0.9% IVPB ONE (12:00)
[2019-02-24] MEDS ORDERED: TOBRAMYCIN SULF IVPB ONE (12:00)
[2019-02-24 12:30] LABS: Bilirubin,Urine Negative (Negative); Blood,Urine Negative (Negative); Clarity,Urine Cloudy (Clear); Color,Urine Yellow (Yellow); Glucose,Urine (UA) Normal (Normal); Ketones,Urine Negative (Negative); Leukocyte Esterase,Urine Large (Negative); Nitrite,Urine Positive (Negative); PH,Urine 8.5 pH Units (5.0-8.0); Protein,Urine 30 mg/dL (Neg-Trace); Specific Gravity,Urine 1.017 (1.010-1.025); Urobilinogen,Urine Normal (Normal)
[2019-02-24 12:51] LABS: Basophils % 0.2 %; Eosinophils # 0.2 K/mcL (0.0-0.6); Eosinophils % 2.9 %; Hematocrit 30.3 % (35.3-44.9); Hemoglobin 9.4 g/dL (11.5-15.4); Immature Granulocytes % 0.2 % (0-4); Lymphocytes # 0.7 K/mcL (0.6-4.6); Lymphocytes % 12.7 %; Mean Corpuscular Volume 90.2 fL (83.0-100.0); Mean Platelet Volume 12.1 fL (9.4-12.4); Monocytes # 0.5 K/mcL (0.0-1.3); Neutrophils # 3.8 K/mcL (1.6-8.9); Platelet Count 189 K/mcL (140-400); Red Blood Count 3.36 M/mcL (3.82-4.97); Red Cell Distribution Width 15.1 % (11.5-14.5); White Blood Count 5.1 K/mcL (4.3-11.1)
[2019-02-24 13:10] LABS: BUN/Creatinine Ratio 33 (6-26); Blood Urea Nitrogen 23 mg/dL (8-23); Calcium 8.3 mg/dL (8.6-10.3); Carbon Dioxide 29 mEq/L (23-29); Chloride 109 mEq/L (98-107); Glucose 78 mg/dL (70-105); Osmolality,Calculated 289 (280-300); Sodium 138 mEq/L (136-145); eGFR For African Americans > 60 (> 60); eGFR For Non-African Americans > 60 (> 60)
[2019-02-24 13:13] LABS: Bacteria,Urine Many per hpf (None-Few); Squamous Epithelial Cell,Urine Moderate per lpf (None-Few); Triple Phosphate Crystal,Urine Present
[2019-02-24 13:14] LABS: Transitional Epi Cells,Urine Few per hpf (None-Few); WBC,Urine 0-3 per hpf (0-3)
[2019-02-24] MEDS ORDERED: Naloxone 0.4 MG/ML INJ IVP PRN (14:32)
[2019-02-24] MEDS: Furosemide 20 MG TABLET PO SCH (16:50)
[2019-02-24] MEDS: Pregabalin 75 MG CAPSULE PO SCH ×2 (16:50→22:59)
[2019-02-24] MEDS: *HR* OxyCODONE/APAP 5/325 TABLET PO PRN (16:57)
[2019-02-24] MEDS: *HR* Heparin 5,000 UNIT/ML VIAL SQ SCH (18:10)
[2019-02-24] MEDS: Mirtazapine 15 MG TABLET PO SCH (22:57)
[2019-02-24] MEDS: FLUoxetine 20 MG CAPSULE PO SCH (22:59)
[2019-02-25 04:53] LABS: Basophils % 0.2 %; Eosinophils # 0.2 K/mcL (0.0-0.6); Eosinophils % 4.8 %; Hematocrit 27.6 % (35.3-44.9); Hemoglobin 8.6 g/dL (11.5-15.4); Immature Granulocytes % 0.2 % (0-4); Lymphocytes # 0.6 K/mcL (0.6-4.6); Lymphocytes % 14.3 %; Mean Corpuscular HGB Conc 31.2 g/dL (31.6-35.5); Mean Corpuscular Hemoglobin 27.9 pg (28.0-33.3); Mean Corpuscular Volume 89.6 fL (83.0-100.0); Monocytes # 0.5 K/mcL (0.0-1.3); Monocytes % 11.1 %; Neutrophils # 3.1 K/mcL (1.6-8.9); Platelet Count 164 K/mcL (140-400); Red Blood Count 3.08 M/mcL (3.82-4.97); Red Cell Distribution Width 15.1 % (11.5-14.5); Segmented Neutrophils % 69.4 %; White Blood Count 4.4 K/mcL (4.3-11.1)
[2019-02-25 05:10] LABS: BUN/Creatinine Ratio 28 (6-26); Blood Urea Nitrogen 17 mg/dL (8-23); Carbon Dioxide 25 mEq/L (23-29); Chloride 107 mEq/L (98-107); Glucose 91 mg/dL (70-105); Osmolality,Calculated 289 (280-300); Phosphorous 2.7 mg/dL (2.7-4.5); Potassium 3.8 mEq/L (3.5-5.1); Sodium 139 mEq/L (136-145); eGFR For African Americans > 60 (> 60); eGFR For Non-African Americans > 60 (> 60)
[2019-02-25] MEDS: *HR* Heparin 5,000 UNIT/ML VIAL SQ SCH (05:58)
[2019-02-25] MEDS ORDERED: FLUoxetine 20 MG CAPSULE PO SCH ×2 (09:00)
[2019-02-25] MEDS ORDERED: NON-FORMULARY MEDICATION 1 EACH EACH (Fluoxetine Hcl [Fluoxetine Hcl] 40 MG) PO SCH (09:00)
[2019-02-25] MEDS: Ertapenem 1,000 MG in 0.9 % Sodium Chloride Mini Bag 100 ML IVPB SCH (09:04)
[2019-02-25] MEDS: Isosorbide MONOnitrate (24 HR) 30 MG TAB.ER.24H PO SCH (09:06)
[2019-02-25] MEDS: Pregabalin 75 MG CAPSULE PO SCH ×3 (09:06→20:02)
[2019-02-25] MEDS: Aspirin Enteric Coated 81 MG Tablet PO SCH (09:06)
[2019-02-25] MEDS: Furosemide 20 MG TABLET PO SCH ×2 (09:06→17:17)
[2019-02-25] MEDS: Verapamil ER (24 HR) 180 MG TABLET.ER PO SCH (09:06)
[2019-02-25] MEDS: FLUoxetine 20 MG CAPSULE PO SCH ×2 (09:06→20:03)
[2019-02-25 10:53] LABS: Albumin 3.1 g/dL (3.5-5.7); Albumin/Globulin Ratio 1.1 (1.1-2.2); Bilirubin,Direct 0.1 mg/dL (0.0-0.2); Bilirubin,Indirect 0.3 mg/dL (0.0-1.2); Bilirubin,Total 0.4 mg/dL (0.3-1.0); Globulin 2.7 g/dL (2.4-3.5); Total Protein 5.8 g/dL (6.4-8.9)
[2019-02-25 11:52] LABS: Hepatitis C Virus Antibody Nonreactive (Nonreactive)
[2019-02-25 11:53] LABS: Hepatitis A Antibody IgM Nonreactive (Nonreactive); Hepatitis B Core IgM Nonreactive (Nonreactive)
[2019-02-25 12:04] LABS: Hepatitis B Surface Antigen Nonreactive (Nonreactive)
[2019-02-25 13:56] LABS: INR 1.1; Prothrombin Time 12.2 Seconds (9.4-12.1)
[2019-02-25] MEDS ORDERED: SODIUM CHLORIDE/NAHCO3/KCL/PEG 4,000 ML SOLN.RECON PO ONE (17:00)
[2019-02-25] MEDS: Famotidine 20 MG TABLET PO SCH (17:17)
[2019-02-25] MEDS: Mirtazapine 15 MG TABLET PO SCH (20:01)
[2019-02-25] MEDS ORDERED: Melatonin 3 MG TABLET PO PRN (23:32)
[2019-02-26] MEDS: Ertapenem 1,000 MG in 0.9 % Sodium Chloride Mini Bag 100 ML IVPB SCH (10:46)
[2019-02-26] MEDS ORDERED: Lidocaine -MPF 2% 2 ML VIAL ONE (12:57)
[2019-02-26] MEDS ORDERED: Propofol 500 MG/50 ML INFUS..BTL ONE (12:57)
[2019-02-26] MEDS: Pregabalin 75 MG CAPSULE PO SCH ×3 (15:56→21:37)
[2019-02-26] MEDS: Furosemide 20 MG TABLET PO SCH ×2 (15:57→16:15)
[2019-02-26] MEDS: Isosorbide MONOnitrate (24 HR) 30 MG TAB.ER.24H PO SCH (16:14)
[2019-02-26] MEDS: Famotidine 20 MG TABLET PO SCH (16:15)
[2019-02-26] MEDS: Aspirin Enteric Coated 81 MG Tablet PO SCH (16:15)
[2019-02-26] MEDS: Verapamil ER (24 HR) 180 MG TABLET.ER PO SCH (16:15)
[2019-02-26] MEDS: FLUoxetine 20 MG CAPSULE PO SCH ×2 (16:16→21:38)
[2019-02-26] MEDS: Mirtazapine 15 MG TABLET PO SCH (21:37)
[2019-02-27 01:57] LABS: Hematocrit 27.6 % (35.3-44.9); Hemoglobin 8.7 g/dL (11.5-15.4); Mean Corpuscular HGB Conc 31.5 g/dL (31.6-35.5); Mean Corpuscular Hemoglobin 28.2 pg (28.0-33.3); Mean Corpuscular Volume 89.3 fL (83.0-100.0); Mean Platelet Volume 12.4 fL (9.4-12.4); Platelet Count 205 K/mcL (140-400); Red Blood Count 3.09 M/mcL (3.82-4.97); White Blood Count 4.8 K/mcL (4.3-11.1)
[2019-02-27 02:23] LABS: BUN/Creatinine Ratio 21 (6-26); Blood Urea Nitrogen 12 mg/dL (8-23); Calcium 7.8 mg/dL (8.6-10.3); Carbon Dioxide 22 mEq/L (23-29); Chloride 110 mEq/L (98-107); Glucose 89 mg/dL (70-105); Osmolality,Calculated 285 (280-300); Potassium 3.5 mEq/L (3.5-5.1); Sodium 138 mEq/L (136-145); eGFR For African Americans > 60 (> 60); eGFR For Non-African Americans > 60 (> 60)
[2019-02-27] MEDS: *HR* OxyCODONE/APAP 5/325 TABLET PO PRN (05:56)
[2019-02-27 07:33] VITALS: BP 135/77
[2019-02-27] MEDS: FLUoxetine 20 MG CAPSULE PO SCH (08:17)
[2019-02-27] MEDS: Furosemide 20 MG TABLET PO SCH (08:17)
[2019-02-27] MEDS: Aspirin Enteric Coated 81 MG Tablet PO SCH (08:18)
[2019-02-27] MEDS: Pregabalin 75 MG CAPSULE PO SCH (08:18)
[2019-02-27] MEDS: Verapamil ER (24 HR) 180 MG TABLET.ER PO SCH (08:18)
[2019-02-27] MEDS: Isosorbide MONOnitrate (24 HR) 30 MG TAB.ER.24H PO SCH (08:19)
[2019-02-27] MEDS: Ertapenem 1,000 MG in 0.9 % Sodium Chloride Mini Bag 100 ML IVPB SCH (08:19)
[2019-02-27] MEDS ORDERED: Fosfomycin Tromethamine 3 GM Packet PO ONE (08:45)
[2019-02-27 10:19] LABS: AFP Tumor Marker Non-Pregnant 1 ng/mL (0-9)
[2019-02-27 10:32] LABS: ANA IgG by ELISA NONE DETECTED (None Detected); F-Actin (sm muscle) Ab IgG 3 Units (0-19); Serine Protease-3 Antibody 1 AU/mL (0-19)
== END 2019-02-27 12:58 | disposition home health service (06) | DRG 690 ==
LOC: 3BNU 10:20 → EMEROOARM 10:20 → OBSVTOIN 14:32 → 3BNU 14:53
PROVIDERS: ADMIT Pharmacist; ATTEND Pharmacist

== ENCOUNTER 2019-05-19 15:27 | Observation (INO) ==
[2019-05-19] MEDS ORDERED: Furosemide 40 MG/4 ML VIAL IVP ONE (15:47)
[2019-05-19 16:20] LABS: Basophils % 0.1 %; Eosinophils # 0.2 K/mcL (0.0-0.6); Eosinophils % 2.1 %; Hematocrit 37.9 % (35.3-44.9); Hemoglobin 12.2 g/dL (11.5-15.4); Immature Granulocytes % 0.3 % (0-4); Lymphocytes # 0.8 K/mcL (0.6-4.6); Lymphocytes % 11.1 %; Mean Corpuscular HGB Conc 32.2 g/dL (31.6-35.5); Mean Corpuscular Hemoglobin 30.3 pg (28.0-33.3); Mean Corpuscular Volume 94.3 fL (83.0-100.0); Monocytes # 0.6 K/mcL (0.0-1.3); Monocytes % 7.9 %; Neutrophils # 5.6 K/mcL (1.6-8.9); Platelet Count 153 K/mcL (140-400); Red Blood Count 4.02 M/mcL (3.82-4.97); Red Cell Distribution Width 18.5 % (11.5-14.5); Segmented Neutrophils % 78.5 %; White Blood Count 7.2 K/mcL (4.3-11.1)
[2019-05-19 16:42] LABS: BUN/Creatinine Ratio 24 (6-26); Blood Urea Nitrogen 22 mg/dL (8-23); Calcium 8.7 mg/dL (8.6-10.3); Carbon Dioxide 27 mEq/L (23-29); Chloride 107 mEq/L (98-107); Glucose 87 mg/dL (70-105); Osmolality,Calculated 299 (280-300); Potassium 3.7 mEq/L (3.5-5.1); Sodium 143 mEq/L (136-145); Troponin I < 0.03 ng/mL (< 0.04); eGFR For African Americans > 60 (> 60); eGFR For Non-African Americans 60 (> 60)
[2019-05-19] MEDS ORDERED: Ondansetron ODT 4 MG TAB.RAPDIS SL PRN (18:21)
[2019-05-19] MEDS ORDERED: Mag Hydrox/Al Hydrox/Simeth 30 ML UDC PO PRN (18:21)
[2019-05-19] MEDS ORDERED: Acetaminophen 325 MG TABLET PO PRN (18:21)
[2019-05-19] MEDS ORDERED: Naloxone 0.4 MG/ML INJ IVP PRN (18:21)
[2019-05-19] MEDS ORDERED: MOM Conc 10 ML UD.LIQ PO PRN (18:21)
[2019-05-19] MEDS ORDERED: *HR* OxyCODONE/APAP 5/325 TABLET PO PRN (18:23)
[2019-05-19] MEDS ORDERED: hydrOXYzine pamoate 25 MG CAPSULE PO PRN (18:23)
[2019-05-19] MEDS ORDERED: Mirtazapine 15 MG TABLET PO SCH (21:00)
[2019-05-19] MEDS: Famotidine 20 MG TABLET PO SCH (23:38)
[2019-05-19] MEDS: Pregabalin 75 MG CAPSULE PO SCH (23:38)
[2019-05-20 01:33] LABS: Hemoglobin 11.2 g/dL (11.5-15.4); Mean Corpuscular Hemoglobin 30.3 pg (28.0-33.3); Mean Corpuscular Volume 94.6 fL (83.0-100.0); Mean Platelet Volume 12.4 fL (9.4-12.4); Platelet Count 125 K/mcL (140-400); Red Cell Distribution Width 18.3 % (11.5-14.5); White Blood Count 6.6 K/mcL (4.3-11.1)
[2019-05-20 01:52] LABS: BUN/Creatinine Ratio 18 (6-26); Blood Urea Nitrogen 19 mg/dL (8-23); Calcium 8.1 mg/dL (8.6-10.3); Carbon Dioxide 26 mEq/L (23-29); Chloride 109 mEq/L (98-107); Glucose 159 mg/dL (70-105); Magnesium 1.9 mg/dL (1.6-2.6); Osmolality,Calculated 300 (280-300); Potassium 3.2 mEq/L (3.5-5.1); Sodium 142 mEq/L (136-145); eGFR For African Americans > 60 (> 60); eGFR For Non-African Americans 52 (> 60)
[2019-05-20] MEDS: *HR* Heparin 5,000 UNIT/ML VIAL SQ SCH ×3 (06:55→20:54)
[2019-05-20] MEDS ORDERED: Potassium Chloride Elixir 20 MEQ/15 ML UDC PO ONE (08:21)
[2019-05-20] MEDS: Aspirin Enteric Coated 81 MG Tablet PO SCH (08:52)
[2019-05-20] MEDS: Pregabalin 75 MG CAPSULE PO SCH ×3 (08:52→20:54)
[2019-05-20] MEDS: Famotidine 20 MG TABLET PO SCH ×2 (08:52→20:54)
[2019-05-20] MEDS: carvediloL 6.25 MG TABLET PO SCH ×2 (08:52→16:51)
[2019-05-20] MEDS: Isosorbide MONOnitrate (24 HR) 30 MG TAB.ER.24H PO SCH (08:52)
[2019-05-20] MEDS ORDERED: Verapamil ER (24 HR) 180 MG TABLET.ER PO SCH (09:00)
[2019-05-20] MEDS ORDERED: NON-FORMULARY MEDICATION 1 EACH EACH (Hydroxyzine Hcl [Hydroxyzine Hcl] 25 MG) PO PRN (10:55)
[2019-05-20] MEDS ORDERED: *HR* OxyCODONE/APAP 5/325 TABLET PO PRN (10:55)
[2019-05-20] MEDS ORDERED: NON-FORMULARY MEDICATION 1 EACH EACH (Ranitidine Hcl [Acid Reducer] 150 MG) PO PRN (10:55)
[2019-05-20] MEDS: Furosemide 20 MG TABLET PO SCH (16:51)
[2019-05-20] MEDS ORDERED: Mirtazapine 15 MG TABLET PO SCH (21:00)
[2019-05-20] MEDS ORDERED: Lactobacillus 1 EACH CAP.SPRINK PO SCH (21:00)
[2019-05-21] MEDS: *HR* Heparin 5,000 UNIT/ML VIAL SQ SCH (06:34)
[2019-05-21 06:52] VITALS: BP 113/59
[2019-05-21] MEDS ORDERED: Verapamil ER (24 HR) 180 MG TABLET.ER PO SCH (09:00)
[2019-05-21] MEDS ORDERED: Vortioxetine Hydrobromide [Trintellix] 10 MG PO SCH (09:00)
[2019-05-21] MEDS ORDERED: Isosorbide MONOnitrate (24 HR) 30 MG TAB.ER.24H PO SCH (09:00)
[2019-05-21] MEDS ORDERED: Furosemide 20 MG TABLET PO SCH (09:00)
[2019-05-21] MEDS ORDERED: Aspirin Enteric Coated 81 MG Tablet PO SCH (09:00)
[2019-05-21] MEDS ORDERED: Multivit/Ca/Min/Fe/FA 1 TAB TABLET PO SCH (09:00)
[2019-05-21] MEDS: Aspirin Enteric Coated 81 MG Tablet PO SCH (10:16)
[2019-05-21] MEDS: Furosemide 20 MG TABLET PO SCH (10:16)
[2019-05-21] MEDS: Pregabalin 75 MG CAPSULE PO SCH (10:17)
[2019-05-21] MEDS: Famotidine 20 MG TABLET PO SCH (10:17)
[2019-05-21] MEDS: Isosorbide MONOnitrate (24 HR) 30 MG TAB.ER.24H PO SCH (10:18)
[2019-05-21] MEDS: carvediloL 6.25 MG TABLET PO SCH (10:19)
== END 2019-05-21 10:29 | disposition home or self-care (01) ==
LOC: EMEROOARM 15:27 → 2NENU 15:27 → SUATTDRO 18:02 → 2NENU 18:58
PROVIDERS: ADMIT Internal Medicine; ATTEND Internal Medicine

== ENCOUNTER 2019-10-09 08:14 | Inpatient (IN) ==
[2019-10-09] MEDS ORDERED: 0.9 % Sodium Chloride 1,000 ML IVC ONE ×2 (08:29→10:37)
[2019-10-09 08:48] LABS: Basophils % 0.1 %; Eosinophils % 0.4 %; Hemoglobin 11.1 g/dL (11.5-15.4); Immature Granulocytes % 0.4 % (0-4); Lymphocytes # 0.6 K/mcL (0.6-4.6); Lymphocytes % 7.5 %; Mean Corpuscular HGB Conc 32.6 g/dL (31.6-35.5); Mean Corpuscular Hemoglobin 31.9 pg (28.0-33.3); Mean Corpuscular Volume 97.7 fL (83.0-100.0); Mean Platelet Volume 11.1 fL (9.4-12.4); Monocytes # 0.4 K/mcL (0.0-1.3); Monocytes % 5.3 %; Neutrophils # 6.7 K/mcL (1.6-8.9); Platelet Count 137 K/mcL (140-400); Red Blood Count 3.48 M/mcL (3.82-4.97); Segmented Neutrophils % 86.3 %; White Blood Count 7.8 K/mcL (4.3-11.1)
[2019-10-09 08:58] LABS: INR 1.1; Prothrombin Time 12.5 Seconds (9.4-12.1)
[2019-10-09 09:01] LABS: Activated Partial Thrombo Time 41.4 Seconds (26.0-36.0)
[2019-10-09 09:10] LABS: Alanine Aminotransferase 90 Units/L (7-52); Albumin 3.5 g/dL (3.5-5.7); Albumin/Globulin Ratio 1.2 (1.1-2.2); Alkaline Phosphatase 225 Units/L (34-104); Aspartate Amino Transferase 119 Units/L (13-39); BUN/Creatinine Ratio 28 (6-26); Bilirubin,Direct 0.4 mg/dL (0.0-0.2); Bilirubin,Indirect 0.7 mg/dL (0.0-1.0); Bilirubin,Total 1.1 mg/dL (0.3-1.0); Blood Urea Nitrogen 28 mg/dL (8-23); C-Reactive Protein 41 mg/L (Less than 10); Calcium 8.6 mg/dL (8.6-10.3); Carbon Dioxide 23 mEq/L (23-29); Chloride 106 mEq/L (98-107); Globulin 2.9 g/dL (2.4-3.5); Glucose 144 mg/dL (70-105); Lactate Dehydrogenase 241 Units/L (140-271); Magnesium 2.1 mg/dL (1.6-2.6); Osmolality,Calculated 296 (280-300); Phosphorous 3.1 mg/dL (2.7-4.5); Potassium 3.9 mEq/L (3.5-5.1); Sodium 139 mEq/L (136-145); Total Protein 6.4 g/dL (6.4-8.9); Troponin I < 0.03 ng/mL (< 0.04); eGFR For African Americans > 60 (> 60); eGFR For Non-African Americans 54 (> 60)
[2019-10-09 09:28] LABS: Ferritin 126 ng/mL (10-120)
[2019-10-09 09:59] LABS: Bilirubin,Urine Negative (Negative); Blood,Urine Small (Negative); Clarity,Urine Turbid (Clear); Color,Urine Yellow (Yellow); Glucose,Urine (UA) Normal (Normal); Ketones,Urine Negative (Negative); Leukocyte Esterase,Urine Large (Negative); Nitrite,Urine Positive (Negative); PH,Urine 7.5 pH Units (5.0-8.0); Protein,Urine 100 mg/dL (Neg-Trace); Specific Gravity,Urine 1.019 (1.010-1.025); Urobilinogen,Urine Normal (Normal)
[2019-10-09 10:01] LABS: Bacteria,Urine Many per hpf (None-Few); Hyaline Casts,Urine Few per lpf (None-Few); Squamous Epithelial Cell,Urine Many per lpf (None-Few); WBC,Urine TNTC per hpf (0-3)
[2019-10-09] MEDS ORDERED: Azithromycin 500 MG in 0.9 % Sodium Chloride 250 ML IVPB ONE (10:38)
[2019-10-09] MEDS ORDERED: cefTRIAXone 1,000 MG in 0.9 % Sodium Chloride Mini Bag 100 ML IVPB ONE (10:38)
[2019-10-09 12:05] LABS: Procalcitonin 0.86 ng/mL (0.00-0.15)
[2019-10-09] MEDS ORDERED: Naloxone 0.4 MG/ML INJ IVP PRN (12:41)
[2019-10-09] MEDS ORDERED: Ondansetron 4 MG/2 ML VIAL IVP PRN (12:41)
[2019-10-09] MEDS ORDERED: Ipratropium/Albuterol Neb 3 ML IH PRN (12:44)
[2019-10-09] MEDS ORDERED: Famotidine 20 MG TABLET PO PRN (12:47)
[2019-10-09] MEDS ORDERED: Piperacillin/Tazobactam 3.375 GM in 0.9 % Sodium Chloride Mini Bag 100 ML IVPB SCH (15:00)
[2019-10-09] MEDS: Ipratropium/Albuterol Neb 3 ML IH SCH ×2 (16:06→23:57)
[2019-10-09] MEDS: Acetaminophen 325 MG TABLET PO PRN (16:07)
[2019-10-09] MEDS: Ertapenem 1,000 MG in 0.9 % Sodium Chloride Mini Bag 100 ML IVPB SCH (16:08)
[2019-10-09] MEDS: *HR* Heparin 5,000 UNIT/ML VIAL SQ SCH (18:52)
[2019-10-09] MEDS: OLANZapine 5 MG TAB.RAPDIS PO SCH (22:25)
[2019-10-10] MEDS: Ipratropium/Albuterol Neb 3 ML IH SCH ×4 (03:51→21:44)
[2019-10-10 05:12] LABS: Basophils % 0.3 %; Eosinophils # 0.2 K/mcL (0.0-0.6); Eosinophils % 5.3 %; Hematocrit 34.2 % (35.3-44.9); Hemoglobin 10.6 g/dL (11.5-15.4); Immature Granulocytes % 0.3 % (0-4); Lymphocytes # 0.8 K/mcL (0.6-4.6); Lymphocytes % 20.4 %; Mean Corpuscular Hemoglobin 31.2 pg (28.0-33.3); Mean Corpuscular Volume 100.6 fL (83.0-100.0); Mean Platelet Volume 11.1 fL (9.4-12.4); Monocytes # 0.3 K/mcL (0.0-1.3); Monocytes % 7.8 %; Neutrophils # 2.6 K/mcL (1.6-8.9); Platelet Count 106 K/mcL (140-400); Red Cell Distribution Width 14.3 % (11.5-14.5); Segmented Neutrophils % 65.9 %
[2019-10-10 05:27] LABS: Albumin 3.2 g/dL (3.5-5.7); Albumin/Globulin Ratio 1.1 (1.1-2.2); Bilirubin,Direct 0.2 mg/dL (0.0-0.2); Bilirubin,Indirect 0.4 mg/dL (0.0-1.0); Bilirubin,Total 0.6 mg/dL (0.3-1.0); Globulin 2.8 g/dL (2.4-3.5)
[2019-10-10 05:28] LABS: BUN/Creatinine Ratio 23 (6-26); Blood Urea Nitrogen 19 mg/dL (8-23); Calcium 8.1 mg/dL (8.6-10.3); Carbon Dioxide 21 mEq/L (23-29); Chloride 111 mEq/L (98-107); Glucose 141 mg/dL (70-105); Magnesium 2.2 mg/dL (1.6-2.6); Osmolality,Calculated 295 (280-300); Phosphorous 2.9 mg/dL (2.7-4.5); Potassium 3.4 mEq/L (3.5-5.1); Sodium 140 mEq/L (136-145); eGFR For African Americans > 60 (> 60); eGFR For Non-African Americans > 60 (> 60)
[2019-10-10] MEDS: Acetaminophen 325 MG TABLET PO PRN (05:45)
[2019-10-10] MEDS: *HR* Heparin 5,000 UNIT/ML VIAL SQ SCH ×2 (05:48→17:06)
[2019-10-10] MEDS ORDERED: cefTRIAXone 2,000 MG in Water for inj. (sterile) 20 ML IVP SCH (09:00)
[2019-10-10] MEDS ORDERED: Azithromycin 500 MG in 0.9 % Sodium Chloride 250 ML IVPB SCH (09:00)
[2019-10-10] MEDS: Aspirin Enteric Coated 81 MG Tablet PO SCH (09:03)
[2019-10-10] MEDS: DilTIAZem CD (24hr) 240 MG CAP.ER.24H PO SCH (09:03)
[2019-10-10] MEDS: (Vortioxetine Hydrobromide [Trintellix] 10 MG) PO SCH (09:05)
[2019-10-10] MEDS ORDERED: Triamcinolone Acet 0.1% CRM 15 GM TUBE TP PRN (13:00)
[2019-10-10] MEDS ORDERED: Nitroglycerin 0.4 MG TAB.SUBL SL PRN (13:00)
[2019-10-10] MEDS ORDERED: NON-FORMULARY MEDICATION 1 EACH EACH (Hydroxyzine Hcl [Hydroxyzine Hcl] 25 MG) PO SCH (15:00)
[2019-10-10] MEDS: Ertapenem 1,000 MG in 0.9 % Sodium Chloride Mini Bag 100 ML IVPB SCH (15:16)
[2019-10-10] MEDS: polyethylene glycoL 3350 17 GM POWD.PACK PO SCH (17:06)
[2019-10-10] MEDS: Furosemide 20 MG TABLET PO SCH (17:06)
[2019-10-10] MEDS: Doxycycline 100 MG in 0.9 % Sodium Chloride Mini Bag 100 ML IVPB SCH (17:06)
[2019-10-10] MEDS: *HR* OxyCODONE/APAP 5/325 TABLET PO PRN (21:10)
[2019-10-10] MEDS: OLANZapine 5 MG TAB.RAPDIS PO SCH (21:11)
[2019-10-10] MEDS: Mirtazapine 15 MG TABLET PO SCH (21:11)
[2019-10-11] MEDS: Acetaminophen 325 MG TABLET PO PRN ×2 (01:04→17:33)
[2019-10-11] MEDS ORDERED: Melatonin 3 MG TABLET PO ONE (01:07)
[2019-10-11] MEDS: Ipratropium/Albuterol Neb 3 ML IH SCH ×4 (03:49→21:44)
[2019-10-11 05:03] LABS: Basophils % 0.2 %; Eosinophils # 0.3 K/mcL (0.0-0.6); Eosinophils % 6.2 %; Hematocrit 31.1 % (35.3-44.9); Hemoglobin 9.8 g/dL (11.5-15.4); Immature Granulocytes % 0.2 % (0-4); Lymphocytes % 23.7 %; Mean Corpuscular HGB Conc 31.5 g/dL (31.6-35.5); Mean Corpuscular Hemoglobin 31.1 pg (28.0-33.3); Mean Corpuscular Volume 98.7 fL (83.0-100.0); Mean Platelet Volume 10.9 fL (9.4-12.4); Monocytes # 0.4 K/mcL (0.0-1.3); Monocytes % 8.9 %; Neutrophils # 2.5 K/mcL (1.6-8.9); Platelet Count 106 K/mcL (140-400); Red Blood Count 3.15 M/mcL (3.82-4.97); Red Cell Distribution Width 14.3 % (11.5-14.5); Segmented Neutrophils % 60.8 %; White Blood Count 4.1 K/mcL (4.3-11.1)
[2019-10-11] MEDS: Doxycycline 100 MG in 0.9 % Sodium Chloride Mini Bag 100 ML IVPB SCH ×2 (05:15→17:17)
[2019-10-11] MEDS: *HR* Heparin 5,000 UNIT/ML VIAL SQ SCH ×2 (05:16→17:18)
[2019-10-11 05:39] LABS: BUN/Creatinine Ratio 21 (6-26); Blood Urea Nitrogen 16 mg/dL (8-23); Calcium 7.7 mg/dL (8.6-10.3); Carbon Dioxide 22 mEq/L (23-29); Chloride 113 mEq/L (98-107); Glucose 141 mg/dL (70-105); Osmolality,Calculated 292 (280-300); Potassium 3.1 mEq/L (3.5-5.1); Sodium 139 mEq/L (136-145); eGFR For African Americans > 60 (> 60); eGFR For Non-African Americans > 60 (> 60)
[2019-10-11] MEDS: Aspirin Enteric Coated 81 MG Tablet PO SCH (08:09)
[2019-10-11] MEDS: DilTIAZem CD (24hr) 240 MG CAP.ER.24H PO SCH (08:09)
[2019-10-11] MEDS: Lactobacillus 1 EACH CAP.SPRINK PO SCH (08:09)
[2019-10-11] MEDS: (Vortioxetine Hydrobromide [Trintellix] 10 MG) PO SCH (08:09)
[2019-10-11] MEDS: Spironolactone 25 MG TABLET PO SCH (08:09)
[2019-10-11] MEDS: polyethylene glycoL 3350 17 GM POWD.PACK PO SCH (08:10)
[2019-10-11] MEDS: Furosemide 20 MG TABLET PO SCH ×2 (08:10→17:17)
[2019-10-11] MEDS: *HR* OxyCODONE/APAP 5/325 TABLET PO PRN (09:34)
[2019-10-11 12:47] LABS: Hepatitis B Surface Antigen Nonreactive (Nonreactive)
[2019-10-11 13:16] LABS: Hepatitis B Core IgM Nonreactive (Nonreactive); Hepatitis C Virus Antibody Nonreactive (Nonreactive)
[2019-10-11 13:18] LABS: Hepatitis A Antibody IgM Nonreactive (Nonreactive)
[2019-10-11] MEDS: Ertapenem 1,000 MG in 0.9 % Sodium Chloride Mini Bag 100 ML IVPB SCH (15:23)
[2019-10-11] MEDS: OLANZapine 5 MG TAB.RAPDIS PO SCH (21:36)
[2019-10-11] MEDS: Mirtazapine 15 MG TABLET PO SCH (21:36)
[2019-10-12 04:10] LABS: Basophils % 0.2 %; Eosinophils # 0.3 K/mcL (0.0-0.6); Eosinophils % 6.7 %; Hematocrit 34.1 % (35.3-44.9); Hemoglobin 10.6 g/dL (11.5-15.4); Immature Granulocytes % 0.2 % (0-4); Lymphocytes # 1.1 K/mcL (0.6-4.6); Lymphocytes % 24.2 %; Mean Corpuscular HGB Conc 31.1 g/dL (31.6-35.5); Mean Corpuscular Hemoglobin 31.3 pg (28.0-33.3); Mean Corpuscular Volume 100.6 fL (83.0-100.0); Mean Platelet Volume 10.8 fL (9.4-12.4); Monocytes # 0.4 K/mcL (0.0-1.3); Monocytes % 9.2 %; Neutrophils # 2.7 K/mcL (1.6-8.9); Platelet Count 125 K/mcL (140-400); Red Blood Count 3.39 M/mcL (3.82-4.97); Red Cell Distribution Width 14.5 % (11.5-14.5); Segmented Neutrophils % 59.5 %; White Blood Count 4.5 K/mcL (4.3-11.1)
[2019-10-12] MEDS: Ipratropium/Albuterol Neb 3 ML IH SCH ×4 (04:30→21:54)
[2019-10-12 04:34] LABS: BUN/Creatinine Ratio 21 (6-26); Blood Urea Nitrogen 20 mg/dL (8-23); Calcium 8.1 mg/dL (8.6-10.3); Carbon Dioxide 20 mEq/L (23-29); Chloride 112 mEq/L (98-107); Glucose 118 mg/dL (70-105); Osmolality,Calculated 296 (280-300); Potassium 3.9 mEq/L (3.5-5.1); Sodium 141 mEq/L (136-145); eGFR For African Americans > 60 (> 60); eGFR For Non-African Americans 57 (> 60)
[2019-10-12] MEDS: *HR* Heparin 5,000 UNIT/ML VIAL SQ SCH ×2 (05:37→17:19)
[2019-10-12] MEDS: Doxycycline 100 MG in 0.9 % Sodium Chloride Mini Bag 100 ML IVPB SCH (05:37)
[2019-10-12] MEDS: Aspirin Enteric Coated 81 MG Tablet PO SCH (08:07)
[2019-10-12] MEDS: DilTIAZem CD (24hr) 240 MG CAP.ER.24H PO SCH (08:08)
[2019-10-12] MEDS: Furosemide 20 MG TABLET PO SCH ×2 (08:08→17:16)
[2019-10-12] MEDS: Spironolactone 25 MG TABLET PO SCH (08:08)
[2019-10-12] MEDS: Lactobacillus 1 EACH CAP.SPRINK PO SCH (08:08)
[2019-10-12] MEDS: polyethylene glycoL 3350 17 GM POWD.PACK PO SCH ×2 (08:09→09:20)
[2019-10-12] MEDS: (Vortioxetine Hydrobromide [Trintellix] 10 MG) PO SCH (08:09)
[2019-10-12] MEDS: *HR* OxyCODONE/APAP 5/325 TABLET PO PRN ×2 (09:06→21:34)
[2019-10-12] MEDS: Ertapenem 1,000 MG in 0.9 % Sodium Chloride Mini Bag 100 ML IVPB SCH (15:10)
[2019-10-12] MEDS: OLANZapine 5 MG TAB.RAPDIS PO SCH (19:38)
[2019-10-12] MEDS: Mirtazapine 15 MG TABLET PO SCH (19:38)
[2019-10-12] MEDS: Doxycycline 100 MG CAPSULE PO SCH (19:38)
[2019-10-12] MEDS: Acetaminophen 325 MG TABLET PO PRN (19:43)
[2019-10-13] MEDS: Ipratropium/Albuterol Neb 3 ML IH SCH ×3 (04:01→16:23)
[2019-10-13] MEDS: Acetaminophen 325 MG TABLET PO PRN (05:40)
[2019-10-13] MEDS: *HR* Heparin 5,000 UNIT/ML VIAL SQ SCH (05:40)
[2019-10-13 06:53] LABS: Basophils % 0.2 %; Eosinophils # 0.3 K/mcL (0.0-0.6); Hemoglobin 11.4 g/dL (11.5-15.4); Immature Granulocytes % 0.4 % (0-4); Lymphocytes # 0.8 K/mcL (0.6-4.6); Lymphocytes % 18.9 %; Mean Corpuscular HGB Conc 31.7 g/dL (31.6-35.5); Mean Corpuscular Hemoglobin 31.3 pg (28.0-33.3); Mean Corpuscular Volume 98.9 fL (83.0-100.0); Monocytes # 0.3 K/mcL (0.0-1.3); Monocytes % 7.2 %; Platelet Count 118 K/mcL (140-400); Red Blood Count 3.64 M/mcL (3.82-4.97); Red Cell Distribution Width 14.2 % (11.5-14.5); Segmented Neutrophils % 66.3 %; White Blood Count 4.5 K/mcL (4.3-11.1)
[2019-10-13 07:13] LABS: BUN/Creatinine Ratio 21 (6-26); Blood Urea Nitrogen 21 mg/dL (8-23); Calcium 8.8 mg/dL (8.6-10.3); Carbon Dioxide 25 mEq/L (23-29); Chloride 106 mEq/L (98-107); Glucose 116 mg/dL (70-105); Osmolality,Calculated 292 (280-300); Potassium 4.1 mEq/L (3.5-5.1); Sodium 139 mEq/L (136-145); eGFR For African Americans > 60 (> 60); eGFR For Non-African Americans 55 (> 60)
[2019-10-13] MEDS: (Vortioxetine Hydrobromide [Trintellix] 10 MG) PO SCH (08:48)
[2019-10-13] MEDS: Lactobacillus 1 EACH CAP.SPRINK PO SCH (08:53)
[2019-10-13] MEDS: DilTIAZem CD (24hr) 240 MG CAP.ER.24H PO SCH (08:53)
[2019-10-13] MEDS: Doxycycline 100 MG CAPSULE PO SCH (08:54)
[2019-10-13] MEDS: Aspirin Enteric Coated 81 MG Tablet PO SCH (08:54)
[2019-10-13] MEDS: Furosemide 20 MG TABLET PO SCH (08:54)
[2019-10-13] MEDS: Spironolactone 25 MG TABLET PO SCH (08:54)
[2019-10-13] MEDS: polyethylene glycoL 3350 17 GM POWD.PACK PO SCH (08:55)
[2019-10-13] MEDS: Ertapenem 1,000 MG in 0.9 % Sodium Chloride Mini Bag 100 ML IVPB SCH (15:40)
[2019-10-13 15:59] VITALS: BP 114/69
[2019-10-15 09:42] LABS: Acinetobacter baumannii by PCR Not Detected (Not Detect); Candida albicans by PCR Not Detected (Not Detect); Candida glabrata by PCR Not Detected (Not Detect); Candida krusei by PCR Not Detected (Not Detect); Candida parapsilosis by PCR Not Detected (Not Detect); Candida tropicalis by PCR Not Detected (Not Detect); Enterobacter cloacae Cmplx PCR Not Detected (Not Detect); Enterobacteriaceae by PCR Not Detected (Not Detect); Enterococcus by PCR Not Detected (Not Detect); Escherichia coli by PCR Not Detected (Not Detect); Klebsiella oxytoca by PCR Not Detected (Not Detect); Klebsiella pneumoniae by PCR Not Detected (Not Detect); Proteus by PCR Not Detected (Not Detect); Pseudomonas aeruginosa by PCR Not Detected (Not Detect); Serratia marcescens by PCR Not Detected (Not Detect); Staphylococcus aureus by PCR Not Detected (Not Detect); Staphylococcus by PCR Not Detected (Not Detect); Streptococcus agalactiae(B)PCR Not Detected (Not Detect); Streptococcus by PCR Not Detected (Not Detect); Streptococcus pneumoniae PCR Not Detected (Not Detect); Streptococcus pyogenes (A) PCR Not Detected (Not Detect)
== END 2019-10-13 17:38 | disposition home or self-care (01) | DRG 178 ==
LOC: 3ANU 08:14 → EMEROOARM 08:14 → SUATTDRO 12:41 → 3ANU 12:50
PROVIDERS: ADMIT Internal Medicine; ATTEND Internal Medicine

== ENCOUNTER 2020-12-27 06:22 | Observation (INO) ==
[2020-12-27] MEDS ORDERED: Ringers Solution, Lactated 1,000 ML IVC SCH (06:45)
[2020-12-27] MEDS ORDERED: Ondansetron 4 MG/2 ML VIAL ONE (06:49)
[2020-12-27] MEDS ORDERED: *HR* Rocuronium Bromide 50 MG/5 ML VIAL ONE (06:49)
[2020-12-27] MEDS ORDERED: *HR* Propofol 200 MG/20 ML VIAL IVP ONE (06:49)
[2020-12-27] MEDS ORDERED: Lidocaine -MPF 2% 2 ML VIAL ONE (06:49)
[2020-12-27] MEDS ORDERED: *HR* FentaNYL (PF) 100 MCG/2 ML VIAL ONE (06:49)
[2020-12-27] MEDS ORDERED: Gentamicin 320 MG in 0.9 % Sodium Chloride 100 ML IVPB STA (07:00)
[2020-12-27] MEDS ORDERED: EPINEPHrine 1 MG/ML VIAL ONE (07:03)
[2020-12-27] MEDS ORDERED: Vancomycin 1,000 MG VIAL ONE ×2 (07:06→07:50)
[2020-12-27] MEDS ORDERED: Albumin Human 5% 25.0 GM/500 ML IV.SOLN ONE (07:15)
[2020-12-27] MEDS ORDERED: CeFAZolin Syr 2,000MG/20 ML 2,000 MG/20 ML SYRINGE IVPB ONE (07:17)
[2020-12-27] MEDS ORDERED: Nitroglycerin 0.4 MG TAB.SUBL SL PRN ×2 (07:19→13:52)
[2020-12-27] MEDS ORDERED: Ondansetron 4 MG/2 ML VIAL IVP PRN ×2 (07:19→11:06)
[2020-12-27] MEDS ORDERED: Naloxone 0.4 MG/ML INJ IVP PRN ×2 (07:19→11:06)
[2020-12-27] MEDS ORDERED: Albuterol 2.5 MG/3 ML NEBULIZER IH PRN (07:19)
[2020-12-27] MEDS ORDERED: *HR* FentaNYL (PF) 100 MCG/2 ML VIAL IVP PRN (07:19)
[2020-12-27] MEDS ORDERED: *HR* HYDROmorphone PF 0.5 MG/0.5 ML SYRINGE IVP PRN (07:30)
[2020-12-27] MEDS ORDERED: *HR* Succinylcholine 200 MG/10 ML VIAL IVP ONE (07:36)
[2020-12-27] MEDS ORDERED: Ethanol\\Acetic Acid\\Na Ace\\Ben 1,000 ML IRRIG.SOLN IR ONE (07:40)
[2020-12-27] MEDS ORDERED: Povidone-Iodine 45 ML, Sodium Chloride IRRigation 1,000 ML IR ONE (07:45)
[2020-12-27] MEDS ORDERED: TOTAL JOINT MIXTURE (100ML) INTRAART ONE (07:45)
[2020-12-27] MEDS ORDERED: Tranexamic Acid 1,000 MG/10 ML VIAL ONE ×2 (08:18→10:38)
[2020-12-27] MEDS ORDERED: *HR* Phenylephrine 10 MG/ML VIAL ONE (09:10)
[2020-12-27] MEDS ORDERED: Sugammadex Sodium 200 MG/2 ML VIAL IV ONE (10:22)
[2020-12-27] MEDS ORDERED: *HR* HYDROMORPHONE 2 MG/ML VIAL ONE (10:35)
[2020-12-27] MEDS ORDERED: *HR* OxyCODONE Immed Rel 5 MG TABLET PO PRN (11:06)
[2020-12-27] MEDS ORDERED: *HR* Promethazine 25 MG/ML VIAL IM PRN (11:06)
[2020-12-27] MEDS ORDERED: MOM Conc 10 ML UD.LIQ PO PRN (11:06)
[2020-12-27] MEDS ORDERED: Sennosides 8.6 MG TABLET PO PRN (11:06)
[2020-12-27] MEDS: Ringers Solution, Lactated 1,000 ML IVC SCH ×2 (13:02→21:36)
[2020-12-27] MEDS: Ketorolac 15 MG/ML VIAL IVP SCH ×3 (14:19→23:49)
[2020-12-27] MEDS: Ascorbic Acid 500 MG TABLET PO SCH (16:48)
[2020-12-27] MEDS: CeFAZolin 2,000 MG/120 ML BAG IVPB SCH ×2 (17:07→23:49)
[2020-12-27] MEDS: Furosemide 40 MG TABLET PO SCH (18:13)
[2020-12-27] MEDS: Pregabalin 75 MG CAPSULE PO SCH (21:38)
[2020-12-27] MEDS: Mirtazapine 15 MG TABLET PO SCH (21:39)
[2020-12-28 05:42] LABS: Eosinophils % 0.2 %; Hematocrit 25.2 % (35.3-44.9); Immature Granulocytes % 0.2 % (0-4)
[2020-12-28 05:44] LABS: Hemoglobin 8.3 g/dL (11.5-15.4); Lymphocytes # 0.4 K/mcL (0.6-4.6); Lymphocytes % 9.3 %; Mean Corpuscular HGB Conc 32.9 g/dL (31.6-35.5); Mean Corpuscular Volume 97.3 fL (83.0-100.0); Mean Platelet Volume 11.1 fL (9.4-12.4); Monocytes # 0.4 K/mcL (0.0-1.3); Monocytes % 9.3 %; Neutrophils # 3.7 K/mcL (1.6-8.9); Red Blood Count 2.59 M/mcL (3.82-4.97); Red Cell Distribution Width 14.4 % (11.5-14.5); White Blood Count 4.6 K/mcL (4.3-11.1)
[2020-12-28] MEDS: Ketorolac 15 MG/ML VIAL IVP SCH ×3 (05:58→16:52)
[2020-12-28 06:04] LABS: BUN/Creatinine Ratio 15 (6-26); Blood Urea Nitrogen 15 mg/dL (8-23); Calcium 7.8 mg/dL (8.6-10.3); Carbon Dioxide 23 mEq/L (23-29); Chloride 110 mEq/L (98-107); Glucose 147 mg/dL (70-105); Osmolality,Calculated 296 (280-300); Potassium 3.7 mEq/L (3.5-5.1); Sodium 141 mEq/L (136-145); eGFR For African Americans > 60 (> 60); eGFR For Non-African Americans 56 (> 60)
[2020-12-28 06:36] LABS: Anisocytosis 1+ (Not Present); Platelet Count 82 K/mcL (140-400); Platelet Estimate Decreased (Normal)
[2020-12-28] MEDS: Pregabalin 75 MG CAPSULE PO SCH ×2 (08:57→20:59)
[2020-12-28] MEDS: Ascorbic Acid 500 MG TABLET PO SCH ×2 (08:58→16:52)
[2020-12-28] MEDS: DilTIAZem CD (24hr) 240 MG CAP.ER.24H PO SCH (08:58)
[2020-12-28] MEDS: Spironolactone 25 MG TABLET PO SCH (08:58)
[2020-12-28] MEDS: Furosemide 40 MG TABLET PO SCH ×2 (08:59→17:34)
[2020-12-28] MEDS ORDERED: Aspirin Enteric Coated 81 MG Tablet PO SCH (09:00)
[2020-12-28] MEDS ORDERED: Multivit/Ca/Min/Fe/FA 1 TAB TABLET PO SCH (09:00)
[2020-12-28] MEDS: polyethylene glycoL 3350 17 GM POWD.PACK PO SCH (09:01)
[2020-12-28] MEDS: CeFAZolin 2,000 MG/120 ML BAG IVPB SCH ×2 (10:29→16:53)
[2020-12-28] MEDS: LINZESS 145 MCG PO SCH (11:48)
[2020-12-28] MEDS: TRINTELLIX 20 MG PO SCH (11:49)
[2020-12-28] MEDS: Multivit/Ca/Min/Fe/FA 1 TAB TABLET PO SCH (11:51)
[2020-12-28] MEDS: Aspirin Enteric Coated 81 MG Tablet PO SCH (12:30)
[2020-12-28 16:57] LABS: Basophils % 0.3 %; Eosinophils # 0.2 K/mcL (0.0-0.6); Eosinophils % 2.7 %; Hematocrit 26.3 % (35.3-44.9); Hemoglobin 8.7 g/dL (11.5-15.4); Immature Granulocytes % 0.3 % (0-4); Immature Platelets 4.5 % (1.1-6.1); Lymphocytes # 0.9 K/mcL (0.6-4.6); Lymphocytes % 15.2 %; Mean Corpuscular HGB Conc 33.1 g/dL (31.6-35.5); Mean Corpuscular Volume 96.7 fL (83.0-100.0); Mean Platelet Volume 11.5 fL (9.4-12.4); Monocytes # 0.5 K/mcL (0.0-1.3); Monocytes % 8.8 %; Neutrophils # 4.3 K/mcL (1.6-8.9); Platelet Count 107 K/mcL (140-400); Red Blood Count 2.72 M/mcL (3.82-4.97); Red Cell Distribution Width 14.6 % (11.5-14.5); Segmented Neutrophils % 72.7 %; White Blood Count 5.9 K/mcL (4.3-11.1)
[2020-12-28] MEDS: Mirtazapine 15 MG TABLET PO SCH (20:59)
[2020-12-29] MEDS: CeFAZolin 2,000 MG/120 ML BAG IVPB SCH ×3 (00:01→16:19)
[2020-12-29] MEDS: Ketorolac 15 MG/ML VIAL IVP SCH ×4 (00:03→17:32)
[2020-12-29] MEDS: Ringers Solution, Lactated 1,000 ML IVC SCH ×3 (03:24→17:25)
[2020-12-29 06:07] LABS: Basophils % 0.2 %
[2020-12-29 06:09] LABS: Eosinophils # 0.1 K/mcL (0.0-0.6); Hematocrit 25.6 % (35.3-44.9); Hemoglobin 8.2 g/dL (11.5-15.4); Immature Granulocytes % 0.5 % (0-4); Immature Platelets 3.7 % (1.1-6.1); Lymphocytes # 0.6 K/mcL (0.6-4.6); Lymphocytes % 14.4 %; Mean Corpuscular Hemoglobin 31.4 pg (28.0-33.3); Mean Corpuscular Volume 98.1 fL (83.0-100.0); Mean Platelet Volume 11.1 fL (9.4-12.4); Monocytes # 0.4 K/mcL (0.0-1.3); Monocytes % 10.2 %; Neutrophils # 3.1 K/mcL (1.6-8.9); Red Blood Count 2.61 M/mcL (3.82-4.97); Red Cell Distribution Width 14.7 % (11.5-14.5); Segmented Neutrophils % 71.7 %; White Blood Count 4.3 K/mcL (4.3-11.1)
[2020-12-29 06:11] LABS: Platelet Count 75 K/mcL (140-400)
[2020-12-29 06:46] LABS: BUN/Creatinine Ratio 17 (6-26); Blood Urea Nitrogen 15 mg/dL (8-23); Calcium 8.1 mg/dL (8.6-10.3); Carbon Dioxide 23 mEq/L (23-29); Chloride 112 mEq/L (98-107); Glucose 116 mg/dL (70-105); Osmolality,Calculated 296 (280-300); Potassium 3.7 mEq/L (3.5-5.1); Sodium 142 mEq/L (136-145); eGFR For African Americans > 60 (> 60); eGFR For Non-African Americans > 60 (> 60)
[2020-12-29] MEDS: polyethylene glycoL 3350 17 GM POWD.PACK PO SCH (07:52)
[2020-12-29] MEDS: Furosemide 40 MG TABLET PO SCH (07:52)
[2020-12-29] MEDS: Ascorbic Acid 500 MG TABLET PO SCH ×2 (07:53→16:19)
[2020-12-29] MEDS: Spironolactone 25 MG TABLET PO SCH (07:53)
[2020-12-29] MEDS: Multivit/Ca/Min/Fe/FA 1 TAB TABLET PO SCH (07:53)
[2020-12-29] MEDS: TRINTELLIX 20 MG PO SCH (07:54)
[2020-12-29] MEDS: Pregabalin 75 MG CAPSULE PO SCH ×2 (07:54→20:07)
[2020-12-29] MEDS: LINZESS 145 MCG PO SCH (07:54)
[2020-12-29] MEDS: DilTIAZem CD (24hr) 240 MG CAP.ER.24H PO SCH (07:54)
[2020-12-29] MEDS: Aspirin Enteric Coated 81 MG Tablet PO SCH (07:54)
[2020-12-29] MEDS ORDERED: 0.9 % Sodium Chloride 1,000 ML IVC SCH (12:00)
[2020-12-29] MEDS ORDERED: 0.9 % Sodium Chloride 500 ML IVC SCH (15:15)
[2020-12-29] MEDS ORDERED: 0.9 % Sodium Chloride 500 ML IVC ONE (15:43)
[2020-12-29 16:11] LABS: Basophils % 0.2 %; Eosinophils # 0.2 K/mcL (0.0-0.6); Eosinophils % 3.5 %; Hematocrit 23.4 % (35.3-44.9); Hemoglobin 7.7 g/dL (11.5-15.4); Immature Granulocytes % 0.2 % (0-4); Immature Platelets 3.8 % (1.1-6.1); Lymphocytes # 0.7 K/mcL (0.6-4.6); Lymphocytes % 16.1 %; Mean Corpuscular HGB Conc 32.9 g/dL (31.6-35.5); Mean Corpuscular Hemoglobin 31.8 pg (28.0-33.3); Mean Corpuscular Volume 96.7 fL (83.0-100.0); Mean Platelet Volume 11.3 fL (9.4-12.4); Monocytes # 0.5 K/mcL (0.0-1.3); Monocytes % 10.6 %; Neutrophils # 3.1 K/mcL (1.6-8.9); Platelet Count 86 K/mcL (140-400); Red Blood Count 2.42 M/mcL (3.82-4.97); Red Cell Distribution Width 14.7 % (11.5-14.5); Segmented Neutrophils % 69.4 %; White Blood Count 4.5 K/mcL (4.3-11.1)
[2020-12-29] MEDS: Mirtazapine 15 MG TABLET PO SCH (20:07)
[2020-12-30] MEDS: Ketorolac 15 MG/ML VIAL IVP SCH ×3 (00:10→13:06)
[2020-12-30] MEDS: CeFAZolin 2,000 MG/120 ML BAG IVPB SCH ×2 (00:18→09:24)
[2020-12-30] MEDS: Ringers Solution, Lactated 1,000 ML IVC SCH (05:05)
[2020-12-30 08:44] LABS: Hemoglobin 8.3 g/dL (11.5-15.4); Red Cell Distribution Width 14.8 % (11.5-14.5)
[2020-12-30 08:45] LABS: Hematocrit 26.3 % (35.3-44.9); Immature Platelets 3.6 % (1.1-6.1); Mean Corpuscular HGB Conc 31.6 g/dL (31.6-35.5); Mean Corpuscular Hemoglobin 31.1 pg (28.0-33.3); Mean Corpuscular Volume 98.5 fL (83.0-100.0); Mean Platelet Volume 11.6 fL (9.4-12.4); Red Blood Count 2.67 M/mcL (3.82-4.97)
[2020-12-30 09:05] LABS: BUN/Creatinine Ratio 18 (6-26); Blood Urea Nitrogen 15 mg/dL (8-23); Calcium 7.8 mg/dL (8.6-10.3); Carbon Dioxide 23 mEq/L (23-29); Chloride 113 mEq/L (98-107); Glucose 141 mg/dL (70-105); Magnesium 1.9 mg/dL (1.6-2.6); Osmolality,Calculated 295 (280-300); Phosphorous 2.6 mg/dL (2.7-4.5); Potassium 4.1 mEq/L (3.5-5.1); Sodium 141 mEq/L (136-145); eGFR For African Americans > 60 (> 60); eGFR For Non-African Americans > 60 (> 60)
[2020-12-30] MEDS: Aspirin Enteric Coated 81 MG Tablet PO SCH (09:19)
[2020-12-30] MEDS: Multivit/Ca/Min/Fe/FA 1 TAB TABLET PO SCH (09:19)
[2020-12-30] MEDS: Ascorbic Acid 500 MG TABLET PO SCH (09:19)
[2020-12-30] MEDS: TRINTELLIX 20 MG PO SCH (09:20)
[2020-12-30] MEDS: LINZESS 145 MCG PO SCH (09:20)
[2020-12-30] MEDS: Pregabalin 75 MG CAPSULE PO SCH (09:20)
[2020-12-30] MEDS: Furosemide 40 MG TABLET PO SCH (09:21)
[2020-12-30] MEDS: polyethylene glycoL 3350 17 GM POWD.PACK PO SCH (09:21)
[2020-12-30 11:45] VITALS: BP 104/64; PULSE 79; TEMP 98.7; O2SAT 97
== END 2020-12-30 13:04 | disposition home or self-care (01) ==
LOC: SAMDAY 06:22 → 3NENU 06:22 → SUATTDRO 12-29 13:22
PROVIDERS: ADMIT Orthopaedic Surgery; ATTEND Internal Medicine

== ENCOUNTER 2021-01-30 13:04 | Inpatient (IN) ==
[2021-01-30 14:05] LABS: Hematocrit 30.4 % (35.3-44.9); Hemoglobin 9.5 g/dL (11.5-15.4); Mean Corpuscular HGB Conc 31.3 g/dL (31.6-35.5); Mean Corpuscular Hemoglobin 30.4 pg (28.0-33.3); Mean Corpuscular Volume 97.1 fL (83.0-100.0); Mean Platelet Volume 11.2 fL (9.4-12.4); Platelet Count 159 K/mcL (140-400); Red Blood Count 3.13 M/mcL (3.82-4.97); Red Cell Distribution Width 15.1 % (11.5-14.5); White Blood Count 6.1 K/mcL (4.3-11.1)
[2021-01-30 14:24] LABS: BUN/Creatinine Ratio 21 (6-26); Blood Urea Nitrogen 22 mg/dL (8-23); Calcium 8.5 mg/dL (8.6-10.3); Carbon Dioxide 28 mEq/L (23-29); Chloride 101 mEq/L (98-107); Glucose 123 mg/dL (70-105); Osmolality,Calculated 293 (280-300); Potassium 3.4 mEq/L (3.5-5.1); Sodium 139 mEq/L (136-145); eGFR For African Americans > 60 (> 60); eGFR For Non-African Americans 50 (> 60)
[2021-01-30] MEDS ORDERED: Naloxone 0.4 MG/ML INJ IVP PRN (14:45)
[2021-01-30] MEDS ORDERED: *HR* HYDROcodone/Acet 5/325 mg TABLET PO PRN (16:15)
[2021-01-30 20:50] LABS: Hematocrit 25.3 % (35.3-44.9); Hemoglobin 8.1 g/dL (11.5-15.4)
[2021-01-30] MEDS: Aspirin Enteric Coated 81 MG Tablet PO SCH (20:59)
[2021-01-31 02:27] LABS: Basophils % 0.4 %; Eosinophils # 0.4 K/mcL (0.0-0.6); Eosinophils % 7.7 %; Hematocrit 25.4 % (35.3-44.9); Hemoglobin 7.9 g/dL (11.5-15.4); Immature Granulocytes % 0.2 % (0-4); Lymphocytes # 1.2 K/mcL (0.6-4.6); Lymphocytes % 24.3 %; Mean Corpuscular HGB Conc 31.1 g/dL (31.6-35.5); Mean Corpuscular Hemoglobin 29.8 pg (28.0-33.3); Mean Corpuscular Volume 95.8 fL (83.0-100.0); Mean Platelet Volume 11.5 fL (9.4-12.4); Monocytes # 0.6 K/mcL (0.0-1.3); Monocytes % 11.9 %; Neutrophils # 2.7 K/mcL (1.6-8.9); Platelet Count 148 K/mcL (140-400); Red Blood Count 2.65 M/mcL (3.82-4.97); Red Cell Distribution Width 15.1 % (11.5-14.5); Segmented Neutrophils % 55.5 %; White Blood Count 4.8 K/mcL (4.3-11.1)
[2021-01-31 02:46] LABS: BUN/Creatinine Ratio 22 (6-26); Blood Urea Nitrogen 22 mg/dL (8-23); Calcium 8.4 mg/dL (8.6-10.3); Carbon Dioxide 27 mEq/L (23-29); Chloride 102 mEq/L (98-107); Glucose 134 mg/dL (70-105); Osmolality,Calculated 291 (280-300); Potassium 2.9 mEq/L (3.5-5.1); Sodium 138 mEq/L (136-145); eGFR For African Americans > 60 (> 60); eGFR For Non-African Americans 54 (> 60)
[2021-01-31] MEDS: Aspirin Enteric Coated 81 MG Tablet PO SCH ×2 (08:30→20:41)
[2021-01-31 09:53] LABS: Hematocrit 25.5 % (35.3-44.9); Hemoglobin 8.3 g/dL (11.5-15.4)
[2021-01-31] MEDS ORDERED: Ondansetron 4 MG/2 ML VIAL IVP PRN ×2 (10:27→15:43)
[2021-01-31] MEDS ORDERED: *HR* HYDROmorphone PF 0.5 MG/0.5 ML SYRINGE IVP PRN ×2 (10:27→15:43)
[2021-01-31] MEDS ORDERED: Promethazine 6.25 MG in Water for inj. (sterile) 20 ML IVPB PRN ×2 (10:27→15:43)
[2021-01-31] MEDS ORDERED: *HR* OxyCODONE Immed Rel 5 MG TABLET PO PRN ×2 (10:27→15:43)
[2021-01-31] MEDS ORDERED: 0.9 % Sodium Chloride 1,000 ML IV ONE (10:45)
[2021-01-31] MEDS ORDERED: Lidocaine -MPF 4% 5 ML AMPUL ONE (10:52)
[2021-01-31] MEDS ORDERED: *HR* Rocuronium Bromide 50 MG/5 ML VIAL ONE (10:52)
[2021-01-31] MEDS ORDERED: *HR* FentaNYL (PF) 100 MCG/2 ML VIAL ONE (10:52)
[2021-01-31] MEDS ORDERED: *HR* Succinylcholine 200 MG/10 ML VIAL IVP ONE (10:52)
[2021-01-31] MEDS ORDERED: *HR* Propofol 200 MG/20 ML VIAL IVP ONE (10:52)
[2021-01-31] MEDS ORDERED: Lidocaine -MPF 2% 2 ML VIAL ONE (10:52)
[2021-01-31] MEDS ORDERED: Ondansetron 4 MG/2 ML VIAL ONE (10:52)
[2021-01-31] MEDS ORDERED: EPHEDrine 50 MG/ML VIAL ONE (10:56)
[2021-01-31] MEDS ORDERED: Acetaminophen IV 0 MG/0 ML BAG IVPB ONE (11:07)
[2021-01-31] MEDS ORDERED: Albumin Human 5% 12.5 GM/250 ML IV.SOLN ONE (11:07)
[2021-01-31] MEDS ORDERED: Ethanol\\Acetic Acid\\Na Ace\\Ben 1,000 ML IRRIG.SOLN IR ONE (13:28)
[2021-01-31] MEDS ORDERED: Tobramycin Sulf (Sterile) 1.2 GM VIAL ONE (13:37)
[2021-01-31] MEDS ORDERED: Vancomycin 1,000 MG VIAL ONE (13:37)
[2021-01-31] MEDS ORDERED: *HR* HYDROMORPHONE 2 MG/ML VIAL ONE (14:19)
[2021-01-31] MEDS ORDERED: Naloxone 0.4 MG/ML INJ IVP PRN (15:43)
[2021-01-31] MEDS ORDERED: Clindamycin 900 MG/50 ML 900 MG/50 ML IV.SOLN IVPB SCH (16:00)
[2021-01-31] MEDS: Clindamycin 900 MG/50 ML 900 MG/50 ML IV.SOLN IVPB SCH ×2 (16:45→23:21)
[2021-01-31 16:59] LABS: Hematocrit 28.7 % (35.3-44.9); Hemoglobin 8.5 g/dL (11.5-15.4)
[2021-01-31] MEDS: *HR* HYDROcodone/Acet 5/325 mg TABLET PO PRN (17:54)
[2021-01-31] MEDS: Mirtazapine 15 MG TABLET PO SCH (20:41)
[2021-01-31] MEDS ORDERED: Morphine Sulfate 2 MG/ML SYRINGE IVP ONE (22:12)
[2021-01-31] MEDS ORDERED: 0.9 % Sodium Chloride 500 ML IVC ONE (22:33)
[2021-01-31] MEDS: 0.9 % Sodium Chloride 1,000 ML IVC SCH (23:21)
[2021-02-01 01:00] LABS: Hematocrit 23.1 % (35.3-44.9); Hemoglobin 7.5 g/dL (11.5-15.4); Mean Corpuscular HGB Conc 32.5 g/dL (31.6-35.5); Mean Corpuscular Hemoglobin 31.5 pg (28.0-33.3); Mean Corpuscular Volume 97.1 fL (83.0-100.0); Mean Platelet Volume 11.9 fL (9.4-12.4); Platelet Count 131 K/mcL (140-400); Red Blood Count 2.38 M/mcL (3.82-4.97); Red Cell Distribution Width 14.6 % (11.5-14.5); White Blood Count 4.8 K/mcL (4.3-11.1)
[2021-02-01 01:10] LABS: Calcium 7.9 mg/dL (8.6-10.3); Potassium 3.6 mEq/L (3.5-5.1)
[2021-02-01] MEDS ORDERED: Ketorolac 30 MG/ML VIAL IVP ONE (05:38)
[2021-02-01] MEDS: Aspirin Enteric Coated 81 MG Tablet PO SCH ×2 (07:55→19:40)
[2021-02-01] MEDS ORDERED: DilTIAZem CD (24hr) 240 MG CAP.ER.24H PO SCH (09:00)
[2021-02-01] MEDS: *HR* HYDROcodone/Acet 5/325 mg TABLET PO PRN ×2 (09:32→19:34)
[2021-02-01] MEDS ORDERED: 0.9 % Sodium Chloride 500 ML ONE (11:12)
[2021-02-01] MEDS ORDERED: 0.9 % Sodium Chloride 1,000 ML IVC ONE (12:47)
[2021-02-01] MEDS ORDERED: 0.9 % Sodium Chloride 500 ML IVC ONE (13:43)
[2021-02-01] MEDS ORDERED: Albumin 25% 25gram/100mL 25 GM/100 ML IV.SOLN IVPB ONE (15:35)
[2021-02-01 16:22] LABS: Hematocrit 23.4 % (35.3-44.9); Hemoglobin 7.5 g/dL (11.5-15.4)
[2021-02-01] MEDS: 0.9 % Sodium Chloride 1,000 ML IVC SCH (16:31)
[2021-02-01] MEDS ORDERED: Perflutren Lipid Microsphere 1.3 ML in 0.9 % Sodium Chloride 8.7 ML IVP PRN (16:41)
[2021-02-01 17:43] LABS: Thyroid Stimulating Hormone 2.126 mcIU/mL (0.340-5.600); Troponin I < 0.03 ng/mL (< 0.04)
[2021-02-01] MEDS ORDERED: Furosemide 20 MG/2 ML VIAL IVP ONE (18:00)
[2021-02-01] MEDS ORDERED: 0.9 % Sodium Chloride 250 ML ONE (19:20)
[2021-02-01] MEDS: Mirtazapine 15 MG TABLET PO SCH (19:40)
[2021-02-02] MEDS: *HR* HYDROcodone/Acet 5/325 mg TABLET PO PRN ×3 (02:40→19:36)
[2021-02-02 02:59] LABS: Mean Corpuscular Volume 91.8 fL (83.0-100.0); Mean Platelet Volume 11.1 fL (9.4-12.4)
[2021-02-02 03:01] LABS: Hemoglobin 8.7 g/dL (11.5-15.4); Immature Platelets 4.3 % (1.1-6.1); Mean Corpuscular HGB Conc 32.2 g/dL (31.6-35.5); Mean Corpuscular Hemoglobin 29.6 pg (28.0-33.3); Red Blood Count 2.94 M/mcL (3.82-4.97); Red Cell Distribution Width 17.5 % (11.5-14.5); White Blood Count 4.3 K/mcL (4.3-11.1)
[2021-02-02 03:18] LABS: BUN/Creatinine Ratio 18 (6-26); Blood Urea Nitrogen 18 mg/dL (8-23); Calcium 8.1 mg/dL (8.6-10.3); Carbon Dioxide 25 mEq/L (23-29); Chloride 112 mEq/L (98-107); Glucose 124 mg/dL (70-105); Osmolality,Calculated 299 (280-300); Potassium 3.5 mEq/L (3.5-5.1); Sodium 143 mEq/L (136-145); eGFR For African Americans > 60 (> 60); eGFR For Non-African Americans 54 (> 60)
[2021-02-02] MEDS ORDERED: Vancomycin 1,250 MG/262.5 ML IV.SOLN IVPB SCH (09:00)
[2021-02-02] MEDS: Aspirin Enteric Coated 81 MG Tablet PO SCH ×2 (09:29→20:27)
[2021-02-02] MEDS: Vancomycin 1,250 MG/262.5 ML IV.SOLN IVPB SCH (09:51)
[2021-02-02] MEDS ORDERED: Acetaminophen 325 MG TABLET PO ONE (10:38)
[2021-02-02] MEDS: *HR* OxyCODONE Immed Rel 5 MG TABLET PO PRN (16:12)
[2021-02-02 17:48] LABS: Prothrombin Time 11.9 Seconds (9.4-12.1)
[2021-02-02 17:50] LABS: Activated Partial Thrombo Time 36.3 Seconds (26.0-36.0)
[2021-02-02 17:54] LABS: Bilirubin,Urine Negative (Negative); Blood,Urine Negative (Negative); Clarity,Urine Clear (Clear); Color,Urine Light-Yellow (Yellow); Glucose,Urine (UA) Normal (Normal); Ketones,Urine Negative (Negative); Leukocyte Esterase,Urine Negative (Negative); Nitrite,Urine Negative (Negative); PH,Urine 6.5 pH Units (5.0-8.0); Protein,Urine Trace mg/dL (Neg-Trace)
[2021-02-02] MEDS: 0.9 % Sodium Chloride 1,000 ML IVC SCH ×2 (20:03→20:22)
[2021-02-02] MEDS: Mirtazapine 15 MG TABLET PO SCH (20:28)
[2021-02-02 20:43] LABS: C-Reactive Protein 12 mg/L (Less than 10); Iron 37 mcg/dL (50-170)
[2021-02-02 20:44] LABS: % Iron Saturation 10 % (15-50); Transferrin 271 mg/dL (203-362)
[2021-02-02 21:00] LABS: Ferritin 37 ng/mL (10-120)
[2021-02-03] MEDS: 0.9 % Sodium Chloride 1,000 ML IVC SCH (00:29)
[2021-02-03] MEDS: *HR* OxyCODONE Immed Rel 5 MG TABLET PO PRN ×3 (00:32→18:22)
[2021-02-03] MEDS ORDERED: Iron Sucrose Complex 400 MG in 0.9 % Sodium Chloride 250 ML IVPB ONE (03:00)
[2021-02-03 03:56] LABS: Hematocrit 30.4 % (35.3-44.9)
[2021-02-03 03:58] LABS: Hemoglobin 9.8 g/dL (11.5-15.4); Mean Corpuscular HGB Conc 32.2 g/dL (31.6-35.5); Mean Corpuscular Hemoglobin 29.5 pg (28.0-33.3); Mean Corpuscular Volume 91.6 fL (83.0-100.0); Mean Platelet Volume 10.6 fL (9.4-12.4); Red Blood Count 3.32 M/mcL (3.82-4.97); Red Cell Distribution Width 17.2 % (11.5-14.5); White Blood Count 4.7 K/mcL (4.3-11.1)
[2021-02-03 05:31] LABS: BUN/Creatinine Ratio 12 (6-26); Blood Urea Nitrogen 8 mg/dL (8-23); Calcium 8.3 mg/dL (8.6-10.3); Carbon Dioxide 22 mEq/L (23-29); Chloride 111 mEq/L (98-107); Glucose 105 mg/dL (70-105); Osmolality,Calculated 293 (280-300); Potassium 2.6 mEq/L (3.5-5.1); Sodium 142 mEq/L (136-145); eGFR For African Americans > 60 (> 60); eGFR For Non-African Americans > 60 (> 60)
[2021-02-03] MEDS ORDERED: Potassium Chloride 40 MEQ, Lidocaine 1% 2 ML in 0.9 % Sodium Chloride 500 ML IVPB ONE (05:37)
[2021-02-03] MEDS: Aspirin Enteric Coated 81 MG Tablet PO SCH ×2 (09:02→21:13)
[2021-02-03] MEDS: Vancomycin 1,250 MG/262.5 ML IV.SOLN IVPB SCH (12:21)
[2021-02-03] MEDS: Hydrocortisone 10 MG TABLET PO SCH ×2 (16:10→21:13)
[2021-02-03 19:13] LABS: BUN/Creatinine Ratio 13 (6-26); Blood Urea Nitrogen 8 mg/dL (8-23); Calcium 8.7 mg/dL (8.6-10.3); Carbon Dioxide 20 mEq/L (23-29); Chloride 110 mEq/L (98-107); Glucose 123 mg/dL (70-105); Osmolality,Calculated 290 (280-300); Potassium 3.4 mEq/L (3.5-5.1); Sodium 140 mEq/L (136-145); eGFR For African Americans > 60 (> 60); eGFR For Non-African Americans > 60 (> 60)
[2021-02-03] MEDS: Pregabalin 75 MG CAPSULE PO SCH (21:13)
[2021-02-03] MEDS: Mirtazapine 15 MG TABLET PO SCH (21:13)
[2021-02-04] MEDS: *HR* OxyCODONE Immed Rel 5 MG TABLET PO PRN (00:28)
[2021-02-04 06:48] LABS: Hematocrit 33.2 % (35.3-44.9); Hemoglobin 10.6 g/dL (11.5-15.4); Mean Corpuscular HGB Conc 31.9 g/dL (31.6-35.5); Mean Corpuscular Hemoglobin 29.9 pg (28.0-33.3); Mean Corpuscular Volume 93.5 fL (83.0-100.0); Mean Platelet Volume 11.1 fL (9.4-12.4); Platelet Count 135 K/mcL (140-400); Red Blood Count 3.55 M/mcL (3.82-4.97); Red Cell Distribution Width 17.2 % (11.5-14.5); White Blood Count 6.4 K/mcL (4.3-11.1)
[2021-02-04 07:09] LABS: BUN/Creatinine Ratio 11 (6-26); Blood Urea Nitrogen 7 mg/dL (8-23); Calcium 8.9 mg/dL (8.6-10.3); Carbon Dioxide 22 mEq/L (23-29); Chloride 110 mEq/L (98-107); Glucose 95 mg/dL (70-105); Osmolality,Calculated 292 (280-300); Potassium 3.3 mEq/L (3.5-5.1); Sodium 142 mEq/L (136-145); eGFR For African Americans > 60 (> 60); eGFR For Non-African Americans > 60 (> 60)
[2021-02-04] MEDS: Aspirin Enteric Coated 81 MG Tablet PO SCH ×2 (08:02→23:06)
[2021-02-04] MEDS: Pregabalin 75 MG CAPSULE PO SCH ×2 (08:05→23:05)
[2021-02-04] MEDS: Hydrocortisone 10 MG TABLET PO SCH ×2 (08:06→23:06)
[2021-02-04] MEDS: 0.9 % Sodium Chloride 1,000 ML IVC SCH ×3 (16:00→20:19)
[2021-02-04] MEDS: *HR* HYDROcodone/Acet 5/325 mg TABLET PO PRN (18:39)
[2021-02-04] MEDS: Vancomycin 1,250 MG/262.5 ML IV.SOLN IVPB SCH (20:20)
[2021-02-04] MEDS: Mirtazapine 15 MG TABLET PO SCH (23:06)
[2021-02-05 03:24] VITALS: O2SAT 98
[2021-02-05] MEDS: 0.9 % Sodium Chloride 1,000 ML IVC SCH (05:30)
[2021-02-05 05:57] LABS: Hematocrit 28.2 % (35.3-44.9); Hemoglobin 9.1 g/dL (11.5-15.4); Mean Corpuscular HGB Conc 32.3 g/dL (31.6-35.5); Mean Corpuscular Volume 95.9 fL (83.0-100.0); Mean Platelet Volume 10.9 fL (9.4-12.4); Platelet Count 105 K/mcL (140-400); Red Blood Count 2.94 M/mcL (3.82-4.97); Red Cell Distribution Width 17.4 % (11.5-14.5); White Blood Count 4.8 K/mcL (4.3-11.1)
[2021-02-05 06:16] LABS: BUN/Creatinine Ratio 20 (6-26); Blood Urea Nitrogen 14 mg/dL (8-23); Calcium 8.3 mg/dL (8.6-10.3); Carbon Dioxide 22 mEq/L (23-29); Chloride 113 mEq/L (98-107); Glucose 99 mg/dL (70-105); Osmolality,Calculated 293 (280-300); Potassium 3.6 mEq/L (3.5-5.1); Sodium 141 mEq/L (136-145); eGFR For African Americans > 60 (> 60); eGFR For Non-African Americans > 60 (> 60)
[2021-02-05 07:06] VITALS: BP 121/77; PULSE 85; TEMP 98.2
[2021-02-05 09:11] LABS: Hematocrit 29.4 % (35.3-44.9); Hemoglobin 9.2 g/dL (11.5-15.4)
[2021-02-05] MEDS: Aspirin Enteric Coated 81 MG Tablet PO SCH (09:24)
[2021-02-05] MEDS: Pregabalin 75 MG CAPSULE PO SCH (09:25)
[2021-02-05] MEDS: Hydrocortisone 10 MG TABLET PO SCH (09:25)
== END 2021-02-05 11:15 | disposition home health service (06) | DRG 902 ==
LOC: 3NENU 13:04 → EMEROOARM 13:04 → SUATTDRO 15:43 → 3NENU 17:14 → SUATTDRO 02-01 11:28
PROVIDERS: ADMIT Internal Medicine; ATTEND Internal Medicine